=== PATIENT | female | born 1950 | race Caucasian/White ===

== ENCOUNTER 2016-09-18 12:59 | Emergency (ER) | payer OTHER ==
[~2016-09-18] VITALS: Wt 72.2 kg
[~2016-09-18 12:59] MED LIST: ASPI-664 PO; ATEN-51 PO; OMEP20CA16 PO
[2016-09-18] MEDS ORDERED: SODIUM CHLORIDE 0.9% 1L BAG IV* STA (13:18)
[2016-09-18] MEDS ORDERED: DILTIAZEM 25 MG INJ IV ONE (13:30)
[2016-09-18 13:41] LABS: BASOPHILS % 0.4 % (0.0-2.0); EOSINOPHILS # 0.1 10^3/ul (0.0-0.5); EOSINOPHILS % 0.9 % (0.0-7.0); HEMATOCRIT 43.1 % (37.0-47.0); HEMOGLOBIN 14.9 g/dl (12.0-16.0); LYMPHOCYTES # 1.8 10^3/ul (0.8-2.9); LYMPHOCYTES % 19.4 % (15.0-51.0); MEAN CORPUSCULAR HEMOGLOBIN 31.3 pg (29.0-33.0); MEAN CORPUSCULAR HGB CONC 34.7 g/dl (32.0-37.0); MEAN CORPUSCULAR VOLUME 90.1 fl (82.0-101.0); MONOCYTE # 1.1 10^3/ul (0.3-0.9); MONOCYTES % 11.5 % (0.0-11.0); NEUTROPHIL # 6.5 10^3/ul (1.6-7.5); NEUTROPHILS % 67.8 % (39.0-77.0); PLATELET COUNT 299 10^3/UL (140-440); RED BLOOD COUNT 4.78 10^6/ul (4.20-5.40); RED CELL DISTRIBUTION WIDTH 12.1 % (11.5-14.5); UNCORRECTED WBC 9.5 10^3/ul (4.8-10.8); WHITE BLOOD COUNT 9.5 10^3/ul (4.8-10.8)
[2016-09-18 13:43] LABS: CONDITION 1
[2016-09-18 13:45] LABS: ALBUMIN 4.2 g/dl (3.3-4.9)
[2016-09-18 13:46] LABS: CHLORIDE 104 mmol/L (97-110); POTASSIUM 3.7 mmol/L (3.5-5.1); SODIUM 142 mmol/L (135-144)
[2016-09-18 13:48] LABS: ANION GAP 17 (8-16); ASPARTATE AMINO TRANSFERASE 29 IU/L (15-46); BILIRUBIN,INDIRECT 0.3 mg/dl (0-1.1); BILIRUBIN,TOTAL 0.3 mg/dl (0.2-1.3); CARBON DIOXIDE 25 mmol/L (21-31); CREATININE 0.76 mg/dl (0.44-1.00); INR 1.02; PARTIAL THROMBOPLASTIN TIME 30.4 Sec (25.0-35.0); PROTIME 13.4 Sec (12.2-14.2)
[2016-09-18 13:49] LABS: ALANINE AMINOTRANSFERASE 27 IU/L (13-69); ALKALINE PHOSPHATASE 121 IU/L (42-121); BLOOD UREA NITROGEN 8 mg/dl (7-20); CALCIUM 9.6 mg/dl (8.4-10.2); GLUCOSE 120 mg/dl (70-220)
[2016-09-18 14:12] LABS: TROPONIN-I < 0.012 ng/ml (0.00-0.12)
--- NOTE | 2016-09-18 14:20 | RADRPT ---
PROCEDURE: XR Chest. CLINICAL INDICATION: Tachycardia TECHNIQUE: An AP view of the chest was obtained. COMPARISON: Chest x-ray dated 07/10/2016 FINDINGS: There is prominence of the central pulmonary vascular markings. No focal airspace opacification or pneumothorax is seen. The cardiomediastinal silhouette is moderately enlarged. Calcifications are seen within the aortic arch. The osseous structures demonstrate senescent changes. IMPRESSION: 1. Findings suggestive of pulmonary vascular congestion, increased when compared to the prior exam ination. 2. Moderate cardiomegaly and aortic atherosclerosis. RPTAT: HH .Khalida Iniguez MD, MD Date Time Electronically viewed and signed by .Khalida Iniguez MD, MD on 09/18/2016 14:19 .G/
[2016-09-18 14:38] LABS: ADD UMIC YES; URINE BILIRUBIN (Dip) NEGATIVE (NEGATIVE); URINE BLOOD (Dip) NEGATIVE (NEGATIVE); URINE COLOR LT. YELLOW (YELLOW); URINE GLUCOSE (Dip) NEGATIVE (NEGATIVE); URINE KETONES (Dip) NEGATIVE (NEGATIVE); URINE LEUKOCYTE ESTERASE (Dip) TRACE (NEGATIVE); URINE NITRITE (Dip) NEGATIVE (NEGATIVE); URINE TOTAL PROTEIN (Dip) NEGATIVE (NEGATIVE); URINE UROBILINOGEN (Dip) 0.2 E.U./dL (0.1-1.0)
[2016-09-18 14:48] LABS: URINE RBCS NONE SEEN /HPF (0)
[2016-09-18] MEDS ORDERED: SOD CHLORIDE 0.9% 500 ML IV STA (15:03)
[2016-09-18] MEDS ORDERED: ONDANSETRON 4 MG INJ IV STA (15:38)
--- NOTE | 2016-09-18 15:58 | ERD ---
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 N/V HPI This is a 65-year-old female who presents to the emergency room with a chief complaint of palpitations and mild shortness of breath for the past 2 hours. The patient does state she has a history of atrial fibrillation. She does state that her palpitations are feel similar to her previous atrial fibrillation , and this started after she drank tea. The patient denies any weakness but does state she is mildly nauseous as well. The patient came to the ER today for evaluation. She does state that she was told she needed an ablation however she has not followed up with her driver's license reviewing officer, Dr. Yang. She does say she has an appointment on September 29. ROS All systems reviewed and are negative except as per history of present illness. Medications Home Meds Reported Medications Omeprazole* (Omeprazole*) 20 Mg Capsule.dr, 20 MG PO DAILY 07/26/15 Aspirin* (Aspirin* EC) 81 Mg Tablet.dr, 81 MG PO DAILY, TAB 11/27/14 Atenolol* (Atenolol*) 25 Mg Tablet, 25 MG PO BID, TAB 11/27/14 Allergies Allergies: Coded Allergies: No Known Allergy (Unverified , 09/18/16) PMhx/Soc History of Surgery: Yes (heart cath) Anesthesia Reaction: No Hx Neurological Disorder: No Hx Respiratory Disorders: No Hx Cardiac Disorders: Yes (HTN ,Afib) Hx Psychiatric Problems: No Hx Miscellaneous Medical Probl: No Hx Alcohol Use: No Hx Substance Use: No Hx Tobacco Use: No Smoking Status: Unknown if ever smoked Physical Exam Vitals Vital Signs Date Time Temp Pulse Resp B/P Pulse Ox O2 Delivery O2 Flow Rate FiO2 09/18/16 15:00 98.5 54 22 96/46 100 Room Air 09/18/16 14:00 98.3 54 20 96/46 98 Room Air 09/18/16 13:35 62 16 114/53 100 Nasal Cannula 2.0 09/18/16 13:25 Nasal Cannula 2 09/18/16 13:25 100.5 66 17 161/127 100 Room Air 09/18/16 13:11 100.5 155 22 120/84 97 Physical Exam INITIAL VITAL SIGNS: Reviewed by me GENERAL: The patient is well developed and appropriate for usual state of health in no apparent distress HEENT: Pupils equal, round, and reactive to light. EOMI. There is no scleral icterus. NECK: C-spine is soft and supple, there is no meningismus. There is no cervical lymphadenopathy. LUNGS: Clear to auscultation bilaterally. There are no rales, wheezes or rhonchi. HEART: Irregularly irregular rhythm, no murmurs, clicks, rubs or gallops. ABDOMEN: Soft, non-tender, non-distended. There are bowel sounds in all four quadrants. No rebound or guarding. EXTREMITIES: There is no peripheral cyanosis or edema. No focal swelling or erythema. NEUROLOGICAL: The patient moves all four extremities with 5/5 strength. Cranial nerves II - XII are intact. Normal gait. Alert and oriented SKIN: There is no apparent rash or petechiae. HEME/LYMPHATIC: There is no evidence of excessive bruising or lymphedema. PSYCHIATRIC: The patient does not appear anxious or depressed. Result Diagram: 09/18/16 1325 09/18/16 1325 Results 24 hrs Laboratory Tests Test 09/18/16 13:25 09/18/16 14:20 Activated Partial Thromboplast Time 30.4Sec Alanine Aminotransferase (ALT/SGPT) 27IU/L Albumin 4.2g/dl Albumin/Globulin Ratio 1.10 Alkaline Phosphatase 121IU/L Anion Gap 17 Aspartate Amino Transf (AST/SGOT) 29IU/L Basophils # 0.010^3/ul Basophils % 0.4% Blood Urea Nitrogen 8mg/dl Calcium Level 9.6mg/dl Carbon Dioxide Level 25mmol/L Chloride Level 104mmol/L Creatinine 0.76mg/dl Digoxin Level 0.9ng/ml Direct Bilirubin 0.00mg/dl Eosinophils # 0.110^3/ul Eosinophils % 0.9% Globulin 3.80g/dl Glucose Level 120mg/dl Hematocrit 43.1% Hemoglobin 14.9g/dl INR International Normalized Ratio 1.02 Indirect Bilirubin 0.3mg/dl Lactic Acid Level 1.9mmol/L Lymphocytes # 1.810^3/ul Lymphocytes % 19.4% Mean Corpuscular Hemoglobin 31.3pg Mean Corpuscular Hemoglobin Concent 34.7g/dl Mean Corpuscular Volume 90.1fl Mean Platelet Volume 8.0fl Monocytes # 1.110^3/ul Monocytes % 11.5% Neutrophils # 6.510^3/ul Neutrophils % 67.8% Nucleated Red Blood Cells # 0.010^3/ul Nucleated Red Blood Cells % 0.0/100WBC Platelet Count 41873^3/UL Potassium Level 3.7mmol/L Prothrombin Time 13.4Sec Prothrombin Time Ratio 1.0 Red Blood Count 4.7810^6/ul Red Cell Distribution Width 12.1% Sodium Level 142mmol/L Total Bilirubin 0.3mg/dl Total Protein 8.0g/dl Troponin I < 0.012ng/ml White Blood Count 9.510^3/ul Urine Bilirubin NEGATIVE Urine Clarity CLEAR Urine Color LT. YELLOW Urine Glucose NEGATIVE% Urine Hemoglobin NEGATIVE Urine Ketones NEGATIVE Urine Leukocyte Esterase TRACE Urine Microscopic RBC NONE SEEN/HPF Urine Microscopic WBC 0-2/HPF Urine Nitrite NEGATIVE Urine Specific Bradley <=1.005 Urine Total Protein NEGATIVE Urine Urobilinogen 0.2 E.U./dL Urine pH 6.0 Current Medications Medications (Trade) Dose Ordered Sig/Bruce Route PRN Reason Start Time Stop Time Status Last Admin Dose Admin Sodium Chloride (NS) 2,240 ml BOLUS OVER 2 HOURS STAT IV* 09/18/16 13:18 09/18/16 13:19 DC 09/18/16 13:30 Diltiazem HCl 15 mg 15 mg ONCE ONCE IV 09/18/16 13:30 09/18/16 13:31 DC 09/18/16 13:30 Sodium Chloride (NS) 500 ml @ 500 mls/hr Q1H STAT IV 09/18/16 15:03 09/18/16 16:02 09/18/16 15:09 Ondansetron HCl (Zofran Inj) 4 mg ONCE STAT IV 09/18/16 15:38 09/18/16 15:39 DC 09/18/16 15:46 Procedures/MDM EKG: #1 Rate/Rhythm: Atrial fibrillation QRS, ST, T-waves: [No changes consistent w/ acute ischemia] Impression: [Atrial fibrillation with rapid ventricular response EKG: #2 Rate/Rhythm: Sinus bradycardia QRS, ST, T-waves: [No changes consistent w/ acute ischemia] Impression: [No evidence of ischemia or arrhythmia] Chest X-ray 1V Interpreted by me: Soft Tissue: Pulmonary vascular congestion Bones: No acute abnormalities Mediastinum/Cardiac Silhouette/Lungs: [No acute abnormalities] This 65-year-old female presents to the emergency room for evaluation of palpitations. When I evaluated her she was tachycardic with an irregular rhythm. EKG does confirm atrial fibrillation with rapid ventricular response. This patient is on atenolol 25 mg twice daily, and digoxin 0.125 mg daily. I did obtain lab work including a digoxin level which was mildly subtherapeutic at 0.9. The patient was given 50 mg of Cardizem IV. This patient responded well to the Cardizem, however she became slightly bradycardic and hypotensive with a systolic blood pressure of 96. The patient was given 500 cc of normal saline. I did contact this patient's driver's license reviewing officer and spoke to the doctor internal consultant, Dr. Esposito. I did present the case to him, and he agrees this patient can be discharged home at this time as long as she is not in atrial fibrillation with rapid ventricular response. The patient did have one episode of vomiting after receiving the Cardizem and was given Zofran. Dr. Esposito did recommend the patient be switched to atenolol 50 mg twice daily and 7 for 25 mg twice daily. I relayed this information to the patient who is okay with her plan of care. Cardiac Critical Care: Excluding all billable procedures Time: 32 minutes Treatments/Evaluations: Close monitoring for dangerous arrhythmia and cardiovascular collapse, while treating with advance cardiac medications and techniques, administration of Cardizem for atrial fibrillation with rapid ventricular response, multiple bedside evaluations, multiple consultations, lab values interpretation, EKG interpretation. Departure Diagnosis: Primary Impression: Atrial fibrillation with RVR Additional Impression: Nausea & vomiting Condition: KARO Trimble DO Sep 18, 2016 15:58
[2016-09-18 16:18] VITALS: BP 110/57; PULSE 88; RESP 20; TEMP 98.3
== END 2016-09-18 16:19 | disposition home or self-care (01) ==
LOC: E/R 12:59
DX: I48.91 Unspecified atrial fibrillation (principal); R11.2 Nausea with vomiting, unspecified; I10 Essential (primary) hypertension
CPT/HCPCS: 36415; 71010; 80053; 80162; 81001; 81003; 83605; 84484; 85025; 85610; 85730; 87040; 87086; 96374; 96375; 99291; J2405; J7030; J7040

== ENCOUNTER 2016-10-25 20:03 | Emergency (ER) | payer OTHER ==
[~2016-10-25] VITALS: Ht 162.6 cm; Wt 73.5 kg
[2016-10-25 20:17] VITALS: Ht 162.6 cm; Wt 73.5 kg
--- NOTE | 2016-10-25 22:05 | RADRPT ---
PROCEDURE: XR Chest. CLINICAL INDICATION: Chest pain. TECHNIQUE: AP Portable chest. COMPARISON: 09/18/2016 FINDINGS: There is mild to moderate cardiomegaly. Atherosclerotic calcifications are noted in the aorta. The lungs are clear. The osseous structures are unremarkable. IMPRESSION: No acute findings. RPTAT: HIKT .Joshua Oviedo MD, MD Date Time Electronically viewed and signed by .Joshua Oviedo MD, MD on 10/25/2016 22:05 .T/
[2016-10-25 22:30] LABS: ADD SCAN DIFF NO
[2016-10-25 22:32] LABS: BASOPHIL # 0.1 10^3/ul (0.0-0.1); BASOPHILS % 0.6 % (0.0-2.0); EOSINOPHILS # 0.1 10^3/ul (0.0-0.5); EOSINOPHILS % 1.6 % (0.0-7.0); HEMATOCRIT 40.1 % (37.0-47.0); HEMOGLOBIN 13.5 g/dl (12.0-16.0); LYMPHOCYTES # 3.4 10^3/ul (0.8-2.9); LYMPHOCYTES % 38.9 % (15.0-51.0); MEAN CORPUSCULAR HEMOGLOBIN 30.8 pg (29.0-33.0); MEAN CORPUSCULAR HGB CONC 33.7 g/dl (32.0-37.0); MEAN CORPUSCULAR VOLUME 91.6 fl (82.0-101.0); MEAN PLATELET VOLUME 9.3 fl (7.4-10.4); MONOCYTES % 11.2 % (0.0-11.0); NEUTROPHIL # 4.1 10^3/ul (1.6-7.5); NEUTROPHILS % 47.5 % (39.0-77.0); PLATELET COUNT 326 10^3/UL (140-415); RED BLOOD COUNT 4.38 10^6/ul (4.20-5.40); RED CELL DISTRIBUTION WIDTH 12.2 % (11.5-14.5); WHITE BLOOD COUNT 8.7 10^3/ul (4.8-10.8)
--- NOTE | 2016-10-25 22:40 | ERD ---
ER Documentation Chief Complaint Date/Time DATE: 10/25/16 TIME: 22:35 Chief Complaint palpitations since 4 pm HPI Very pleasant 65-year-old female history of paroxysmal A. fib who presents to the emergency room with description of palpitations and lightheadedness earlier today. She denied any chest pain, no back pain. She describes similar symptoms in the past. She states compliance with medications including metoprolol and digoxin. She does not take anticoagulants. She denies any symptoms currently. ROS All systems reviewed and are negative except as per history of present illness. Medications Home Meds Reported Medications Omeprazole* (Omeprazole*) 20 Mg Capsule.dr, 20 MG PO DAILY 07/26/15 Aspirin* (Aspirin* EC) 81 Mg Tablet.dr, 81 MG PO DAILY, TAB 11/27/14 Atenolol* (Atenolol*) 25 Mg Tablet, 25 MG PO BID, TAB 11/27/14 Allergies Allergies: Coded Allergies: No Known Allergy (Unverified , 10/25/16) PMhx/Soc History of Surgery: Yes (heart cath,stent placement 1998,left inguinal hernia repair) Anesthesia Reaction: No Hx Neurological Disorder: No Hx Respiratory Disorders: No Hx Cardiac Disorders: Yes (HTN ,Afib) Hx Psychiatric Problems: No Hx Miscellaneous Medical Probl: Yes (diverticulosis,cholecystectomy) Hx Alcohol Use: No Hx Substance Use: No Hx Tobacco Use: Yes (ex-smoker) Smoking Status: Former smoker FmHx Family History: No diabetes Physical Exam Vitals Vital Signs Date Time Temp Pulse Resp B/P Pulse Ox O2 Delivery O2 Flow Rate FiO2 10/25/16 21:05 77 21 135/69 97 Room Air 10/25/16 20:17 99.1 98 20 141/72 98 Physical Exam General: Well developed, well nourished, no acute distress Head: Normocephalic, atraumatic. Eyes: Pupils equally reactive, EOM intact ENT: Moist mucous membranes Neck: Supple, no lymphadenopathy Respiratory: Lungs clear bilaterally, no distress Cardiovascular: RRR, no murmurs, rubs, or gallops Abdominal: Soft, non-tender, non-distended, no peritoneal signs : Deferred MSK: No edema, no unilateral swelling, 5/5 strength Neurologic: Alert and oriented, moving all extremities, normal speech, no focal weakness, no cerebellar signs Skin: No rash Psych: Normal mood Result Diagram: 10/25/16221410/25/162214 Results 24 hrs Laboratory Tests Test 10/25/16 22:15 White Blood Count 8.710^3/ul Red Blood Count 4.3810^6/ul Hemoglobin 13.5g/dl Hematocrit 40.1% Mean Corpuscular Volume 91.6fl Mean Corpuscular Hemoglobin 30.8pg Mean Corpuscular Hemoglobin Concent 33.7g/dl Red Cell Distribution Width 12.2% Platelet Count 95541^3/UL Mean Platelet Volume 9.3fl Neutrophils % 47.5% Lymphocytes % 38.9% Monocytes % 11.2% Eosinophils % 1.6% Basophils % 0.6% Nucleated Red Blood Cells % 0.0/100WBC Neutrophils # 4.110^3/ul Lymphocytes # 3.410^3/ul Monocytes # 1.010^3/ul Eosinophils # 0.110^3/ul Basophils # 0.110^3/ul Nucleated Red Blood Cells # 0.010^3/ul Prothrombin Time 12.5Sec Prothrombin Time Ratio 1.0 INR International Normalized Ratio 0.93 Activated Partial Thromboplast Time 29.0Sec Sodium Level 141mmol/L Potassium Level 4.5mmol/L Chloride Level 104mmol/L Carbon Dioxide Level 31mmol/L Anion Gap 11 Blood Urea Nitrogen 16mg/dl Creatinine 0.77mg/dl Glucose Level 102mg/dl Calcium Level 9.5mg/dl Magnesium Level 2.0mg/dl Troponin I Pending Digoxin Level 0.7ng/ml Procedures/MDM EKG, MONITORS, & DIAGNOSTIC IMAGING: EKG: I reviewed and interpreted a 12-lead EKG. Rhythm: Sinus arrhythmia with PVCs Ectopy: PVC Intervals: No abnormalities ST segments: No elevations or depressions T waves: No contiguous inversions EKG #2 EKG: I reviewed and interpreted a 12-lead EKG. Rhythm: Normal sinus rhythm Ectopy: None Intervals: No abnormalities ST segments: No elevations or depressions T waves: No contiguous inversions Chest x-ray: I reviewed and interpreted a 1 view of the chest Mediastinum: No enlargement Cardiac silhouette: No cardiomegaly Airspace: Clear lung collins bilaterally without evidence of pneumothorax Bones: No evidence of fracture LAB INTERPRETATION: Slightly subtherapeutic digoxin level MEDICAL DECISION MAKING: The patient presents with likely intermittent paroxysmal A. fib with mild symptoms related to this process. The patient is currently on appropriate rate control medications. The patient is currently in sinus rhythm. She is not anticoagulated. The patient's CHADS-VASC score is estimated to be around 2 or 3. Outpatient conversation with braille typist for anticoagulation on a long- term basis would be reasonable. The patient is currently rate and rhythm controlled. The patient is asymptomatic currently. She did not have any chest pain. He will be reasonable to rule out evidence of cardiac strain including laboratory testing, dig level and troponin. If no evidence of acute process, outpatient management with her braille typist would be reasonable. ER COURSE: I was able to speak to Dr. Fontenot, on-call for the patient's primary braille typist. We discussed the case. He feels that it would be reasonable for laboratory testing is otherwise unremarkable the patient can be safely discharged and followed up early this week with her primary braille typist. He also recommends conversation with her braille typist regarding anticoagulation but does not require anticoagulation in the emergency room. The patient's laboratory testing is reassuring. The patient remains asymptomatic. She was referred to her primary braille typist Dr. Bagley I kept the patient and/or family informed of laboratory and diagnostic imaging results throughout the emergency room course. DISPOSITION PLAN: We discussed follow up with the patient's primary care doctor within 24 to 48 hours as needed. We also discussed return to the emergency room for worsening symptoms or worsening condition. Outpatient referral: Dr. Bagley Discharge Medications: None Troponin pending at signout. Dr. Nava to follow-up on troponin. If negative the patient can be safely discharged home. The patient's dig level is slightly low however I advised patient to continue this medication and discuss with Dr. Bagley dosing regimen. Departure Diagnosis: Primary Impression: PAF (paroxysmal atrial fibrillation) Additional Impression: Palpitation Condition: Stable ORACIO LUGO MD Oct 25, 2016 22:40
[2016-10-25 22:44] LABS: CHLORIDE 104 mmol/L (97-110); POTASSIUM 4.5 mmol/L (3.5-5.1); SODIUM 141 mmol/L (135-144)
[2016-10-25 22:45] LABS: INR 0.93; PROTIME 12.5 Sec (12.2-14.2)
[2016-10-25 22:47] LABS: ANION GAP 11 (8-16); BLOOD UREA NITROGEN 16 mg/dl (7-20); CARBON DIOXIDE 31 mmol/L (21-31); CREATININE 0.77 mg/dl (0.44-1.00); GLUCOSE 102 mg/dl (70-220)
[2016-10-25 22:48] LABS: CALCIUM 9.5 mg/dl (8.4-10.2)
[2016-10-25 22:59] LABS: TROPONIN-I < 0.012 ng/ml (0.00-0.12)
[2016-10-25 23:25] VITALS: BP 139/71; PULSE 66; RESP 16; TEMP 98.1
== END 2016-10-25 23:50 | disposition home or self-care (01) ==
LOC: E/R 20:03
DX: I48.0 Paroxysmal atrial fibrillation (principal); I10 Essential (primary) hypertension; Z98.61 Coronary angioplasty status; Z79.82 Long term (current) use of aspirin; Z87.891 Personal history of nicotine dependence
CPT/HCPCS: 36415; 71010; 80048; 80162; 83735; 84484; 85025; 85610; 85730; 93005

== ENCOUNTER 2016-12-22 01:45 | Observation (INO) | payer OTHER ==
[2016-12-22] VITALS (11 sets, daily range): BP systolic 111–127; BP diastolic 53–60; PULSE 51–63; RESP 18–20; TEMP 97.6; Ht 162.6 cm; Wt 72.7 kg
[~2016-12-22] VITALS: Ht 162.6 cm; Wt 72.7 kg
[2016-12-22] MEDS ORDERED: SOD CHLORIDE 0.9% 500 ML IV STA (02:13)
[2016-12-22] MEDS ORDERED: ASPIRIN 81 MG TAB PO STA (02:13)
[2016-12-22] MEDS ORDERED: NITROGLYCERIN 2% 1 GM OINT PKT TD STA (02:13)
[2016-12-22] MEDS ORDERED: ONDANSETRON 4 MG INJ IV STA (02:13)
[2016-12-22] MEDS ORDERED: morphine 2 MG INJ IV STA (02:13)
[2016-12-22 02:32] LABS: ADD SCAN DIFF NO
[2016-12-22 02:35] LABS: BASOPHIL # 0.1 10^3/ul (0.0-0.1); BASOPHILS % 0.6 % (0.0-2.0); EOSINOPHILS # 0.1 10^3/ul (0.0-0.5); EOSINOPHILS % 1.7 % (0.0-7.0); HEMATOCRIT 37.9 % (37.0-47.0); HEMOGLOBIN 12.9 g/dl (12.0-16.0); LYMPHOCYTES # 3.4 10^3/ul (0.8-2.9); LYMPHOCYTES % 41.6 % (15.0-51.0); MEAN CORPUSCULAR HEMOGLOBIN 31.1 pg (29.0-33.0); MEAN CORPUSCULAR VOLUME 91.3 fl (82.0-101.0); MEAN PLATELET VOLUME 9.3 fl (7.4-10.4); MONOCYTE # 0.8 10^3/ul (0.3-0.9); MONOCYTES % 10.1 % (0.0-11.0); NEUTROPHIL # 3.7 10^3/ul (1.6-7.5); NEUTROPHILS % 45.9 % (39.0-77.0); PLATELET COUNT 274 10^3/UL (140-415); RED BLOOD COUNT 4.15 10^6/ul (4.20-5.40); RED CELL DISTRIBUTION WIDTH 12.1 % (11.5-14.5); WHITE BLOOD COUNT 8.1 10^3/ul (4.8-10.8)
[2016-12-22] MEDS ORDERED: FLEC50TA PO (02:44)
[2016-12-22] MEDS ORDERED: APIX5TAB PO (02:44)
[2016-12-22 02:48] LABS: ALBUMIN 3.8 g/dl (3.3-4.9)
[2016-12-22 02:49] LABS: CHLORIDE 106 mmol/L (97-110); INR 1.17; POTASSIUM 3.8 mmol/L (3.5-5.1); PT RATIO 1.2; SODIUM 143 mmol/L (135-144)
[2016-12-22 02:50] LABS: PARTIAL THROMBOPLASTIN TIME 33.9 Sec (25.0-35.0)
[2016-12-22 02:51] LABS: ALBUMIN/GLOBULIN RATIO 0.97; ALKALINE PHOSPHATASE 104 IU/L (42-121); ANION GAP 17 (8-16); ASPARTATE AMINO TRANSFERASE 22 IU/L (15-46); BILIRUBIN,INDIRECT 0.2 mg/dl (0-1.1); BILIRUBIN,TOTAL 0.2 mg/dl (0.2-1.3); CARBON DIOXIDE 24 mmol/L (21-31); CREATININE 0.84 mg/dl (0.44-1.00); TOTAL PROTEIN 7.7 g/dl (6.1-8.1)
[2016-12-22 02:52] LABS: ALANINE AMINOTRANSFERASE 31 IU/L (13-69); BLOOD UREA NITROGEN 20 mg/dl (7-20); CALCIUM 9.5 mg/dl (8.4-10.2); GLUCOSE 96 mg/dl (70-220)
[2016-12-22 03:00] LABS: B-TYPE NATRIURETIC PEPTIDE 170 PG/ML (0-125)
[2016-12-22 03:27] LABS: TROPONIN-I < 0.012 ng/ml (0.00-0.12)
--- NOTE | 2016-12-22 03:51 | RADRPT ---
PROCEDURE: Chest. CLINICAL INDICATION: Chest pain. TECHNIQUE: Single frontal view of the chest was obtained. COMPARISON: 10/25/2016. FINDINGS: The cardiac silhouette is enlarged. The aortic arch is calcified. There is mild bibasilar atelecta sis. There is no focal consolidation, vascular congestion or pleural effusion. There is no pneumot horax. IMPRESSION: Mild bibasilar atelectasis. Cardiomegaly and aortic atherosclerosis. .Jaime Gama MD, Date Time Electronically viewed and signed by .Jaime Gama MD, on 12/22/2016 03:51 .T/
--- NOTE | 2016-12-22 04:55 | ERA ---
ER Documentation Chief Complaint Date/Time DATE: 12/22/16 TIME: 04:54 Chief Complaint CP X 35 MINS. +SOB HPI This is a 66-year-old woman which has been 35 minutes of shortness of breath. Patient has a previous cardiac history of stenting. No nausea no vomiting no chills. Mild diaphoresis. No other current complaints. Pain is mild to moderate intensity with no exacerbating or alleviating factors ROS All systems reviewed and are negative except as per history of present illness. Medications Home Meds Reported Medications Apixaban* (Eliquis*) 5 Mg Tablet, 5 MG PO BID, TAB 12/22/16 Flecainide Acetate* (Flecainide Acetate*) 50 Mg Tablet, 50 MG PO Q12, TAB 12/22/16 Omeprazole* (Omeprazole*) 20 Mg Capsule.dr, 20 MG PO DAILY 07/26/15 Atenolol* (Atenolol*) 25 Mg Tablet, 25 MG PO BID, TAB 11/27/14 Discontinued Reported Medications Aspirin* (Aspirin* EC) 81 Mg Tablet.dr, 81 MG PO DAILY, TAB 11/27/14 Allergies Allergies: Coded Allergies: No Known Allergy (Unverified , 12/22/16) PMhx/Soc History of Surgery: Yes (heart cath,stent placement 1998,left inguinal hernia repair) Anesthesia Reaction: No Hx Neurological Disorder: No Hx Respiratory Disorders: No Hx Cardiac Disorders: Yes (HTN ,Afib) Hx Psychiatric Problems: No Hx Miscellaneous Medical Probl: Yes (diverticulosis,cholecystectomy) Hx Alcohol Use: No Hx Substance Use: No Hx Tobacco Use: Yes (ex-smoker) Smoking Status: Former smoker Physical Exam Vitals Vital Signs Date Time Temp Pulse Resp B/P Pulse Ox O2 Delivery O2 Flow Rate FiO2 12/22/16 01:50 97.5 65 18 147/65 97 Physical Exam Const: [] Head: Atraumatic Eyes: Normal Conjunctiva ENT: Normal External Ears, Nose and Mouth. Neck: Full range of motion..~ No meningismus. Resp: Clear to auscultation bilaterally Cardio: Regular rate and rhythm, no murmurs Abd: Soft, non tender, non distended. Normal bowel sounds Skin: No petechiae or rashes Back: No midline or flank tenderness Ext: No cyanosis, or edema Neur: Awake and alert Psych: Normal Mood and Affect Result Diagram: 12/22/166 12/22/166 Results 24 hrs Laboratory Tests Test 12/22/16 02:26 White Blood Count 8.110^3/ul Red Blood Count 4.1510^6/ul Hemoglobin 12.9g/dl Hematocrit 37.9% Mean Corpuscular Volume 91.3fl Mean Corpuscular Hemoglobin 31.1pg Mean Corpuscular Hemoglobin Concent 34.0g/dl Red Cell Distribution Width 12.1% Platelet Count 84643^3/UL Mean Platelet Volume 9.3fl Neutrophils % 45.9% Lymphocytes % 41.6% Monocytes % 10.1% Eosinophils % 1.7% Basophils % 0.6% Nucleated Red Blood Cells % 0.0/100WBC Neutrophils # 3.710^3/ul Lymphocytes # 3.410^3/ul Monocytes # 0.810^3/ul Eosinophils # 0.110^3/ul Basophils # 0.110^3/ul Nucleated Red Blood Cells # 0.010^3/ul Prothrombin Time 15.0Sec Prothrombin Time Ratio 1.2 INR International Normalized Ratio 1.17 Activated Partial Thromboplast Time 33.9Sec Sodium Level 143mmol/L Potassium Level 3.8mmol/L Chloride Level 106mmol/L Carbon Dioxide Level 24mmol/L Anion Gap 17 Blood Urea Nitrogen 20mg/dl Creatinine 0.84mg/dl Glucose Level 96mg/dl Calcium Level 9.5mg/dl Total Bilirubin 0.2mg/dl Direct Bilirubin 0.00mg/dl Indirect Bilirubin 0.2mg/dl Aspartate Amino Transf (AST/SGOT) 22IU/L Alanine Aminotransferase (ALT/SGPT) 31IU/L Alkaline Phosphatase 104IU/L Troponin I < 0.012ng/ml B-Type Natriuretic Peptide 170PG/ML Total Protein 7.7g/dl Albumin 3.8g/dl Globulin 3.90g/dl Albumin/Globulin Ratio 0.97 Current Medications Medications (Trade) Dose Ordered Sig/Bruce Route PRN Reason Start Time Stop Time Status Last Admin Dose Admin Sodium Chloride (NS) 500 ml @ 500 mls/hr Q1H STAT IV 12/22/16 02:13 12/22/16 03:12 DC 12/22/16 02:41 Aspirin (Aspirin) 162 mg ONCE STAT PO 12/22/16 02:13 12/22/16 02:14 DC 12/22/16 02:40 Nitroglycerin (Nitroglycerin 2% Oint) 1 inch ONCE STAT TD 12/22/16 02:13 12/22/16 02:14 DC 12/22/16 02:41 Morphine Sulfate (morphine) 2 mg ONCE STAT IV 12/22/16 02:13 12/22/16 02:14 DC Ondansetron HCl (Zofran Inj) 4 mg ONCE STAT IV 12/22/16 02:13 12/22/16 02:14 DC Procedures/MDM EKG: Rate/Rhythm: Normal Sinus Rhythm QRS, ST, T-waves: No changes consistent w/ acute ischemia Impression: No evidence of ischemia or arrhythmia Chest X-ray 1V Interpreted by me: Soft Tissue: No acute abnormalities Bones: No acute abnormalities Mediastinum/Cardiac Silhouette/Lungs: No acute abnormalities Patient's symptoms are concerning for cardiac cause will require inpatient workup and continuous monitoring. Further w/u for ischemia, arrhythmia, PE or dissection will be deferred to the inpatient team. Accepting Care Team: Current data and ongoing care discussed. Time: 4:30 AM Primary Provider: Hospitalist Consulting: [XOXOXO] Outstanding Data: none Departure Diagnosis: Primary Impression: Chest pain Qualified Code: I20.0 - Unstable angina pectoris Condition: Serious GUNNER MAYBERRY December 22, 2016 04:54
[2016-12-22] MEDS ORDERED: NACL 0.9% 3 ML SYG IV SCH (06:30)
[2016-12-22] MEDS ORDERED: ALBUTEROL/IPRATROPIUM (NEB) 3 ML AMP HHN PRN (06:30)
[2016-12-22] MEDS ORDERED: LORAZEPAM 2 MG INJ IV PRN (06:30)
[2016-12-22] MEDS ORDERED: morphine 2 MG INJ IV PRN (06:30)
[2016-12-22] MEDS ORDERED: ONDANSETRON 4 MG INJ IV PRN (06:30)
[2016-12-22] MEDS ORDERED: NITROGLYCERIN (SL) 0.4 MG TAB SL PRN (06:30)
[2016-12-22] MEDS: PANTOPRAZOLE (EC) 40 MG TAB PO SCH (07:00)
--- NOTE | 2016-12-22 08:04 | HP ---
DATE OF ADMISSION: 12/22/2016 TIME SEEN: 5:30 a.m. CHIEF COMPLAINT: Chest pain. HISTORY OF PRESENT ILLNESS: The patient is a 66-year-old female with a history of hypertension, Enrico b, GERD, erosive gastritis who presented to the emergency department with a chief complaint of chest pain. The chest pain started yesterday afternoon. It is located in the mid chest with radiation t o her back as well as the back of her neck. She could not really describe the type of pain, but she just said it hurts. The pain is intermittent, lasting about a minute. She denied shortness of anastasiya ath, nausea, vomiting, diaphoresis. She also denied fever, chills. She has a history of AFib and r eports occasional palpitations. When the patient presented to the ER, blood pressure was 147/65, heart rate 65, respiratory rate 18, temperature 97.5, oxygen saturation 97% on room air. CBC and CMP are unremarkable. Chest x-ray sh ows cardiomegaly as well as mild bibasilar atelectasis. Her first troponin was negative. She was g iven aspirin and a nitroglycerin patch was placed on her chest. REVIEW OF SYSTEMS: A 12-point review was performed, negative except as mentioned in the HPI. PAST MEDICAL HISTORY: As per HPI. PAST SURGICAL HISTORY: Inguinal hernia repair. SOCIAL HISTORY: She smoked a pack a day for about 15 years, but she quit many years ago. Drinks al cohol occasionally. Denied a history of illicit drug use. FAMILY HISTORY: She stated several family members with heart problems, the youngest one being in he r brother who was diagnosed in and also of heart problems around the age of 55. PHYSICAL EXAMINATION: VITAL SIGNS: Stable. GENERAL: The patient sitting at the edge of her bed, no acute distress. Answering questions approp riately. HEENT: Normocephalic, atraumatic. Extraocular muscles intact. No scleral icterus. CARDIOVASCULAR: Regular rate and rhythm. LUNGS: Clear. ABDOMEN: Soft. There is some discomfort diffusely to deep palpation without guarding, rigidity, or rebound tenderness. There are positive bowel sounds. EXTREMITIES: No edema. NEUROLOGIC: No focal deficits. LABORATORY: CBC and CMP are unremarkable. Chest x-ray shows cardiomegaly and aortic atherosclerosis as well as mild bibasilar atelectasis. IMPRESSION: 1. Chest pain. 2. History of hypertension. 3. History of atrial fibrillation. 4. History of gastroesophageal reflux disease. 5. History of erosive esophagitis. 6. History of moderate tricuspid regurgitation. PLAN: Will continue telemetry monitoring. First troponin is negative and EKG with no ST elevation or depression. We will trend her troponins. We will continue her home medications including Eliqui s and Atenolol. We will check an A1c, fasting lipid, and TSH. She had an echocardiogram a year-and -a-half ago which showed a preserved EF of 60% with moderate tricuspid valve regurgitation. Will re peat echo. Will consider cardiology consult. We will continue her home PPI. Further workup and management per clinical course. Dictated By: GUNNER RUFF/ARACELI Conf#: [id number] DID#: [id number]
[2016-12-22] MEDS ORDERED: FLECAINIDE 100 MG TAB PO SCH (09:00)
[2016-12-22] MEDS ORDERED: NON-FORMULARY/PATIENT OWN MED (Omeprazole* 20 MG) PO SCH (09:00)
[2016-12-22] MEDS ORDERED: ENOXAPARIN 40 MG/0.4 ML SYG SC SCH (09:00)
[2016-12-22] MEDS ORDERED: FLECAINIDE 50 MG TAB PO SCH (09:00)
[2016-12-22] MEDS: ACETAMINOPHEN 325 MG TAB PO PRN ×2 (09:10→21:12)
[2016-12-22] MEDS: ATENOLOL 25 MG TAB PO SCH ×2 (09:10→21:00)
[2016-12-22] MEDS: APIXABAN 5 MG TABLET PO SCH ×2 (09:10→21:10)
[2016-12-22] MEDS: FLECAINIDE 50 MG TAB PO SCH (21:10)
[2016-12-22] MEDS ORDERED: SOD CHLORIDE 0.9% 100 ML ONE (21:38)
[2016-12-22] MEDS ORDERED: IOHEXOL 350MG/ML 50 ML BTL ONE (21:38)
[2016-12-22] MEDS ORDERED: IOHEXOL 100 ML ONE (21:38)
[2016-12-23] VITALS (14 sets, daily range): BP systolic 109–125; BP diastolic 51–67; PULSE 40–73; RESP 18–20
--- NOTE | 2016-12-23 03:16 | RADRPT ---
PROCEDURE: CTA Chest and abdomen CLINICAL INDICATION: Chest pain. Suspected aortic dissection or pulmonary embolus. TECHNIQUE: Thin section spiral CT images were obtained through the vasculature of the chest and ab domen during administration of 120 cc of Omnipaque 350 contrast material. Multiplanar reconstructio ns and 3-D maximum intensity projection reconstructed images were performed. The images were review ed on a PACS workstation. The total exam CTDI equals 13.96 mGy, and the total exam DLP equals 616.5 5 mGy-cm. One or more of the following dose reduction techniques were used: automated exposure cont rol, adjustment of the mA and/or kV according to patient size, or use of iterative reconstruction te chnique. COMPARISON: None FINDINGS: Dependent atelectasis of the lungs is seen and there is nonspecific mosaic attenuation throughout th e lung collins bilaterally. No focal pulmonary nodules are seen. Metallic device is seen in the int eratrial region, possible atrial septal closure device. Cardiomegaly. Atherosclerotic change of th e aorta. No significant coronary artery calcification. No focal infiltrate or pleural effusion is s een. No pericardial effusion is seen. No hilar or mediastinal adenopathy is seen. There is no defi nite evidence for pulmonary embolus or aortic dissection. Clips are seen from prior cholecystectom y. Arterial phase imaging of the abdomen shows no definite focal lesions of the liver or spleen. C lips are seen from prior cholecystectomy. The adrenals, kidneys, and pancreas are unremarkable in a ppearance. There is atherosclerotic change of the abdominal aorta without aneurysm seen. No superi or mesenteric or celiac artery stenosis is seen. Single renal arteries are seen bilaterally without evidence of renal artery stenosis. The inferior mesenteric artery is patent. Degenerative change of the spine is seen. IMPRESSION: No evidence for pulmonary embolus or aortic dissection. Atherosclerotic change of the thoracic and upper abdominal aorta without evidence of aneurysm. Dependent atelectasis of the lungs and nonspecific mosaic attenuation. Probable atrial septal closu re device. RPTAT: [facility] Physician Aakash Date Time Electronically viewed and signed by Physician Aakash on 12/23/2016 03:15 LE/
[2016-12-23] MEDS: PANTOPRAZOLE (EC) 40 MG TAB PO SCH (05:13)
[2016-12-23] MEDS: FLECAINIDE 50 MG TAB PO SCH ×2 (09:00→20:36)
[2016-12-23 09:05] LABS: ADD SCAN DIFF NO
[2016-12-23] MEDS: APIXABAN 5 MG TABLET PO SCH (09:10)
[2016-12-23 09:17] LABS: BASOPHIL # 0.1 10^3/ul (0.0-0.1); BASOPHILS % 0.8 % (0.0-2.0); EOSINOPHILS # 0.1 10^3/ul (0.0-0.5); EOSINOPHILS % 1.9 % (0.0-7.0); HEMATOCRIT 43.5 % (37.0-47.0); HEMOGLOBIN 14.2 g/dl (12.0-16.0); LYMPHOCYTES # 3.6 10^3/ul (0.8-2.9); LYMPHOCYTES % 48.1 % (15.0-51.0); MEAN CORPUSCULAR HEMOGLOBIN 30.3 pg (29.0-33.0); MEAN CORPUSCULAR HGB CONC 32.6 g/dl (32.0-37.0); MEAN CORPUSCULAR VOLUME 92.9 fl (82.0-101.0); MEAN PLATELET VOLUME 9.5 fl (7.4-10.4); MONOCYTE # 0.6 10^3/ul (0.3-0.9); MONOCYTES % 8.3 % (0.0-11.0); NEUTROPHIL # 3.1 10^3/ul (1.6-7.5); NEUTROPHILS % 40.6 % (39.0-77.0); PLATELET COUNT 323 10^3/UL (140-415); RED BLOOD COUNT 4.68 10^6/ul (4.20-5.40); RED CELL DISTRIBUTION WIDTH 12.3 % (11.5-14.5); WHITE BLOOD COUNT 7.6 10^3/ul (4.8-10.8)
[2016-12-23 10:16] LABS: ALBUMIN 4.1 g/dl (3.3-4.9); BILIRUBIN,INDIRECT 0.2 mg/dl (0-1.1); BILIRUBIN,TOTAL 0.2 mg/dl (0.2-1.3); CALCIUM 9.3 mg/dl (8.4-10.2); CHOL/HDL RATIO 3.8 RATIO; CREATININE 0.82 mg/dl (0.44-1.00); TOTAL PROTEIN 8.2 g/dl (6.1-8.1)
--- NOTE | 2016-12-23 11:04 | CONS ---
Date/Time of Note Date/Time of Note DATE: 12/23/16 TIME: 10:58 Assessment/Plan Assessment/Plan Additional Assessment/Plan Paroxysmal atrial fibrillation, currently sinus rhythm Pauses History of ASD closure Back, neck, shoulder and chest pain -Patient symptoms of back, neck, shoulder and chest pain is elicited with movements and palpation. Serial cardiac enzymes remain negative and ECG is without any significant ischemic abnormalities. Patient also found to have pauses on telemetry. She has been on flecainide for her paroxysmal atrial fibrillation and has remained in sinus rhythm. Pauses unlikely from flecainide , would stop beta-curry at the current time. Continue telemetry monitoring. Would discuss with patient's chief clerk her outpatient atrial fibrillation treatment plan. Consultation Date/Type/Reason Admit Date/Time December 22, 2016 at 04:46 Type of Consultation: cv Reason for Consultation Chest pain and bradycardia Hx of Present Illness This is a 66-year-old female with past medical history of paroxysmal atrial fibrillation on flecainide who presented emergency room with complaints of head , neck, shoulder and chest pain. Jhaveri began when patient was sleeping. Pain was aching like and radiating from the shoulders to the back and chest. Pain was worse with shrugging shoulders and pushing on the chest wall and the back. There was no associated shortness of breath, diaphoresis. Her pain has improved since coming to the emergency room but still mildly present, especially with movements. She otherwise denies exertional chest pain or shortness of breath. She has been having issues with palpitations and occasional dizziness. She has seen an chief clerk and was recently started on flecainide. She has been on anticoagulation. 12 point review of systems was performed with all pertinent positives and negatives mentioned above and all else is negative Past Medical History Paroxysmal atrial fibrillation ASD status post closure Medical History: hypertension Past Surgical History ASD closure Family History Significant Family History: no pertinent family hx Social History Alcohol Use: none Smoking Status: Former smoker Exam/Review of Systems Vital Signs Vitals Vital Signs Date Time Temp Pulse Resp B/P Pulse Ox O2 Delivery O2 Flow Rate FiO2 12/23/16 08:45 59 12/23/16 07:24 97.9 20 109/59 96 12/22/16 06:37 Room Air Intake and Output 12/22/16 12/22/16 12/23/16 15:00 23:00 07:00 Intake Total 0 ml 800 ml 900 ml Output Total 0 ml Balance 0 ml 800 ml 900 ml Exam No apparent distress Constitutional: alert, oriented, well developed Head: normocephalic Neck: supple Respiratory: other (Coarse breath sounds bilaterally, no wheezing) Cardiovascular: other (S1-S2 heard), regular rate and rhythm Gastrointestinal: bowel sounds, non-tender, soft Musculoskeletal: other (Pain elicited with palpation of chest wall as well as upper back and shoulders) Extremities: other (No edema) Results Result Diagram: 12/23/1630 12/23/16 0730 Results 24 hrs Laboratory Tests Test 12/22/16 14:10 12/23/16 07:30 Troponin I < 0.012 White Blood Count 7.6 Red Blood Count 4.68 Hemoglobin 14.2 Hematocrit 43.5 Mean Corpuscular Volume 92.9 Mean Corpuscular Hemoglobin 30.3 Mean Corpuscular Hemoglobin Concent 32.6 Red Cell Distribution Width 12.3 Platelet Count 323 Mean Platelet Volume 9.5 Neutrophils % 40.6 Lymphocytes % 48.1 Monocytes % 8.3 Eosinophils % 1.9 Basophils % 0.8 Nucleated Red Blood Cells % 0.0 Neutrophils # 3.1 Lymphocytes # 3.6 H Monocytes # 0.6 Eosinophils # 0.1 Basophils # 0.1 Nucleated Red Blood Cells # 0.0 Sodium Level 139 Potassium Level 4.0 Chloride Level 105 Carbon Dioxide Level 27 Anion Gap 11 Blood Urea Nitrogen 20 Creatinine 0.82 Glucose Level 95 Hemoglobin A1c 5.6 Calcium Level 9.3 Magnesium Level 2.0 Total Bilirubin 0.2 Direct Bilirubin 0.00 Indirect Bilirubin 0.2 Aspartate Amino Transf (AST/SGOT) 23 Alanine Aminotransferase (ALT/SGPT) 32 Alkaline Phosphatase 106 Total Protein 8.2 H Albumin 4.1 Globulin 4.10 H Albumin/Globulin Ratio 1.00 Triglycerides Level 239 H Cholesterol Level 183 LDL Cholesterol, Calculated 88 HDL Cholesterol 47 Cholesterol/HDL Ratio 3.8 Medications Medications Current Medications Lorazepam (Ativan) 0.5 mg Q6H PRN IV ANXIETY; Start 12/22/16 at 06:30 Ondansetron HCl (Zofran Inj) 4 mg Q6H PRN IV NAUSEA AND/OR VOMITING; Start at 06:30 Nitroglycerin (Nitroglycerin (Sl Tab) 0.4 Mg) 1 tab Q5M PRN SL CHEST PAIN; Start 12/22/16 at 06:30 Acetaminophen (Tylenol Tab) 650 mg Q6H PRN PO PAIN LEVEL 1-3 OR FEVER Last administered on 12/22/16 21:12; Admin Dose 650 MG; Start 12/22/16 at 06:30 Morphine Sulfate (morphine) 2 mg Q4H PRN IV PAIN LEVEL 7-10; Start 12/22/16 at 06:30 Apixaban (Eliquis) 5 mg BID PO Last administered on 12/23/16 09:10; Admin Dose 5 MG; Start 12/22/16 at 09:00 Atenolol (Tenormin) 25 mg BID PO Last administered on 12/22/16 09:10; Admin Dose 25 MG; Start 12/22/16 at 09:00; Status Future Hold Pantoprazole (Protonix Tab) 40 mg DAILY@06 PO Last administered on 12/23/16 05 :13; Admin Dose 40 MG; Start 12/22/16 at 07:00 Flecainide Acetate (Tambocor) 50 mg Q12 PO Last administered on 12/22/16 21:10 ; Admin Dose 50 MG; Start 12/22/16 at 21:00 Procedures Procedures ECG demonstrates sinus rhythm at 65 bpm, QRS 96 ms, nonspecific STT wave abnormalities Telemetry reviewed with patient in sinus rhythm, 5.4 second pause at 5:52 AM Sai Esposito DO December 23, 2016 11:04
--- NOTE | 2016-12-23 12:46 | RADRPT ---
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 Physician: ANNE-MARIE MAZARIEGOS Quality: Good Procedures: Transthoracic echocardiogram with complete 2D, M-Mode, and doppler examination. Indications: Chest Pain. 2D/M Mode Doppler Measurement Value Normal Ranges Measurement Value Normal Ranges LVIDd 2D 5.2 3.5 - 5.6 cm AV Peak Toby 1.2 m/sec LVIDs 2D 3.2 2.1 - 4.1 cm AV Peak PG 6.0 mmHg FS 2D 39.2 % LVOT Peak Toby 0.9 m/sec LVPWd 2D 0.9 0.6 - 1.1 cm LVOT Peak PG 3.0 mmHg IVSd 2D 0.8 0.6 - 1.1 cm MV E Peak Toby 0.7 m/sec IVS/LVPW 2D 0.9 MV A Peak Toby 0.7 m/sec AoR Diam 2D 2.9 2.0 - 3.7 cm MV E/A 0.9 LA/Ao 2D 1 0 - 1 MV Decel Time 176 msec EDV 2D 141.0 cm3 MV E/A 0.9 ESV 2D 31.6 cm3 TR Peak Toby 2.9 m/sec LA Dimen 2D 3.3 2.3 - 4.0 cm TR Peak PG 33.0 mmHg RVSP 36.0 mmHg Findings Left Ventricle: Normal left ventricular systolic function. Normal left ventricular cavity size. Normal left ventricular wall thickness. Ejection fraction is visually estimated at 65 %. Abnormal Diastolic Function. Right Ventricle: Normal right ventricular size. Normal right ventricular systolic function. Left Atrium: The left atrium is normal in size. Right Atrium: There is mild enlargement of right atrium. Mitral Valve: Mitral valve leaflets appear mildly thickened. Mild mitral annular calcification. Mild mitral valve regurgitation. The regurgitation jet is eccentrically directed which may underestimate the severity of mitral regurgitation. Aortic Valve: No significant aortic stenosis or insufficiency. Aortic cusps appear mildly calcified. Tricuspid Valve: Normal appearance of the tricuspid valve. Estimated peak PA systolic pressure 36 mmHg. There is mild tricuspid regurgitation. Pulmonic Valve: Normal pulmonic valve appearance. There is trace pulmonic regurgitation. Pericardium: Normal pericardium with no significant pericardial effusion. Aorta: Normal aortic root. IVC: Normal size and normal respiratory collapse consistent with normal right atrial pressure. Conclusions 1.Normal left ventricular systolic function. Normal left ventricular cavity size. Normal left ventricular wall thickness. Ejection fraction is visually estimated at 65 %. Abnormal Diastolic Function. 2.Normal right ventricular size. Normal right ventricular systolic function. 3.The left atrium is normal in size. 4.There is mild enlargement of right atrium. 5.Estimated peak PA systolic pressure 36 mmHg. There is mild tricuspid regurgitation. 6.Mild mitral valve regurgitation. The regurgitation jet is eccentrically directed which may underestimate the severity of mitral regurgitation. 7.No significant aortic stenosis or insufficiency. 8.There is trace pulmonic regurgitation. 9.Normal pericardium with no significant pericardial effusion. Electronically Signed By: Sai Esposito 23-Dec-2016 12:46:07 -0700 Patient Name: ARTURO URIBE Study Date: 23-Dec-2016 [id number]
--- NOTE | 2016-12-23 17:28 | PN ---
Date/Time of Note Date/Time of Note DATE: 12/23/16 TIME: 17:21 Assessment/Plan VTE Prophylaxis VTE Prophylaxis Intervention: ambulation Lines/Catheters IV Catheter Type (from [facility]): [facility] Urinary Cath still in place: No Assessment/Plan Chief Complaint/Hosp Course 1. Chest pain-muscle skeletal in origin ACS ruled out Cardiology consultation appreciated, no further diagnostics 2. Cardiac pause Plan per cardiology is to DC beta-curry and monitor on telemetry overnight 3. Paroxysmal A. fib-currently in sinus Beta-curry held secondary pauses continue, continue flecainide Eliquis discontinued per cardiology 4. History of gastroesophageal reflux disease and erosive esophagitis Continue PPI 5. History of hypertension-stable Prophylaxis: Ambulation Discharge planning: Anticipate DC in a.m. if patient has no further cardiac pauses Problems: Subjective 24 Hr Interval Summary Constitutional: no complaints Exam/Review of Systems Vital Signs Vitals Vital Signs Date Time Temp Pulse Resp B/P Pulse Ox O2 Delivery O2 Flow Rate FiO2 12/23/16 16:39 57 12/23/16 15:36 98.2 20 118/51 100 12/22/16 06:37 Room Air Intake and Output 12/22/16 12/22/16 12/23/16 15:00 23:00 07:00 Intake Total 0 ml 800 ml 900 ml Output Total 0 ml Balance 0 ml 800 ml 900 ml Exam Constitutional: alert Respiratory: clear to auscultation Cardiovascular: regular rate and rhythm Gastrointestinal: soft, No distended Musculoskeletal: nl extremities to inspection Results Result Diagram: 12/23/16 0730 12/23/16 0730 Results 24 hrs Laboratory Tests Test 12/23/16 07:30 White Blood Count 7.6 Red Blood Count 4.68 Hemoglobin 14.2 Hematocrit 43.5 Mean Corpuscular Volume 92.9 Mean Corpuscular Hemoglobin 30.3 Mean Corpuscular Hemoglobin Concent 32.6 Red Cell Distribution Width 12.3 Platelet Count 323 Mean Platelet Volume 9.5 Neutrophils % 40.6 Lymphocytes % 48.1 Monocytes % 8.3 Eosinophils % 1.9 Basophils % 0.8 Nucleated Red Blood Cells % 0.0 Neutrophils # 3.1 Lymphocytes # 3.6 H Monocytes # 0.6 Eosinophils # 0.1 Basophils # 0.1 Nucleated Red Blood Cells # 0.0 Sodium Level 139 Potassium Level 4.0 Chloride Level 105 Carbon Dioxide Level 27 Anion Gap 11 Blood Urea Nitrogen 20 Creatinine 0.82 Glucose Level 95 Hemoglobin A1c 5.6 Calcium Level 9.3 Magnesium Level 2.0 Total Bilirubin 0.2 Direct Bilirubin 0.00 Indirect Bilirubin 0.2 Aspartate Amino Transf (AST/SGOT) 23 Alanine Aminotransferase (ALT/SGPT) 32 Alkaline Phosphatase 106 Total Protein 8.2 H Albumin 4.1 Globulin 4.10 H Albumin/Globulin Ratio 1.00 Triglycerides Level 239 H Cholesterol Level 183 LDL Cholesterol, Calculated 88 HDL Cholesterol 47 Cholesterol/HDL Ratio 3.8 Medications Medications Current Medications Lorazepam (Ativan) 0.5 mg Q6H PRN IV ANXIETY; Start 12/22/16 at 06:30 Ondansetron HCl (Zofran Inj) 4 mg Q6H PRN IV NAUSEA AND/OR VOMITING; Start at 06:30 Nitroglycerin (Nitroglycerin (Sl Tab) 0.4 Mg) 1 tab Q5M PRN SL CHEST PAIN; Start 12/22/16 at 06:30 Acetaminophen (Tylenol Tab) 650 mg Q6H PRN PO PAIN LEVEL 1-3 OR FEVER Last administered on 12/22/16 21:12; Admin Dose 650 MG; Start 12/22/16 at 06:30 Morphine Sulfate (morphine) 2 mg Q4H PRN IV PAIN LEVEL 7-10; Start 12/22/16 at 06:30 Pantoprazole (Protonix Tab) 40 mg DAILY@06 PO Last administered on 12/23/16 05 :13; Admin Dose 40 MG; Start 12/22/16 at 07:00 Flecainide Acetate (Tambocor) 50 mg Q12 PO Last administered on 12/22/16 21:10 ; Admin Dose 50 MG; Start 12/22/16 at 21:00 ANNE-MARIE MAZARIEGOS December 23, 2016 17:28
[2016-12-23] MEDS: DOCUSATE SODIUM 100 MG CAP PO SCH (20:33)
[2016-12-23] MEDS: ACETAMINOPHEN 325 MG TAB PO PRN (20:33)
[2016-12-24] VITALS (7 sets, daily range): BP systolic 120–123; BP diastolic 60–63; PULSE 59–69; RESP 18–19
[2016-12-24] MEDS: PANTOPRAZOLE (EC) 40 MG TAB PO SCH (05:44)
[2016-12-24] MEDS: FLECAINIDE 50 MG TAB PO SCH (10:10)
[2016-12-24] MEDS: DOCUSATE SODIUM 100 MG CAP PO SCH (10:10)
[2016-12-24] MEDS: ACETAMINOPHEN 325 MG TAB PO PRN (10:12)
--- NOTE | 2016-12-24 13:07 | CONS ---
Date/Time of Note Date/Time of Note DATE: 12/24/16 TIME: 13:04 Assessment/Plan Assessment/Plan Additional Assessment/Plan Paroxysmal atrial fibrillation, currently sinus rhythm 5 second pause Preserved ejection fraction History of ASD closure Back, neck, shoulder and chest pain -Patient's telemetry reviewed. Since stopping atenolol, no further pauses seen. Feeling better with no further symptoms of dizziness, palpitations or lightheadedness. Would continue flecainide and hold off on beta curry. Restart Eliquis. No need for pacemaker at the current time. DC planning. Consultation Date/Type/Reason Admit Date/Time December 22, 2016 at 04:46 Initial Consult Date Type of Consultation: cv 24 HR Interval Summary Free Text/Dictation Patient feeling much better. No further episodes of dizziness or palpitations. Denies chest pain. Still complaining of mild back pain Exam/Review of Systems Vital Signs Vitals Vital Signs Date Time Temp Pulse Resp B/P Pulse Ox O2 Delivery O2 Flow Rate FiO2 12/24/16 12:00 64 12/24/16 11:32 98.1 19 121/60 99 12/22/16 06:37 Room Air Intake and Output 12/23/16 12/23/16 12/24/16 15:00 23:00 07:00 Intake Total 1000 ml 1050 ml Balance 1000 ml 1050 ml Exam No apparent distress, walking around the room Constitutional: alert, oriented Head: normocephalic Neck: supple Respiratory: clear to auscultation, normal air movement Cardiovascular: other (S1-S2 heard), regular rate and rhythm Gastrointestinal: bowel sounds, non-tender, soft Extremities: other (No edema) Results Result Diagram: 12/23/16 0730 12/23/16 0730 Medications Medications Current Medications Lorazepam (Ativan) 0.5 mg Q6H PRN IV ANXIETY; Start 12/22/16 at 06:30 Ondansetron HCl (Zofran Inj) 4 mg Q6H PRN IV NAUSEA AND/OR VOMITING; Start at 06:30 Nitroglycerin (Nitroglycerin (Sl Tab) 0.4 Mg) 1 tab Q5M PRN SL CHEST PAIN; Start 12/22/16 at 06:30 Acetaminophen (Tylenol Tab) 650 mg Q6H PRN PO PAIN LEVEL 1-3 OR FEVER Last administered on 12/24/16 10:12; Admin Dose 650 MG; Start 12/22/16 at 06:30 Morphine Sulfate (morphine) 2 mg Q4H PRN IV PAIN LEVEL 7-10; Start 12/22/16 at 06:30 Pantoprazole (Protonix Tab) 40 mg DAILY@06 PO Last administered on 12/24/16 05 :44; Admin Dose 40 MG; Start 12/22/16 at 07:00 Flecainide Acetate (Tambocor) 50 mg Q12 PO Last administered on 12/24/16 10:10 ; Admin Dose 50 MG; Start 12/22/16 at 21:00 Docusate Sodium (Colace) 100 mg BID PO Last administered on 12/24/16 10:10; Admin Dose 100 MG; Start 12/23/16 at 21:00 Sai Esposito DO December 24, 2016 13:07
--- NOTE | 2016-12-24 13:52 | PDOCDIS ---
Discharge Instructions CONDITION Patient Condition: Good HOME CARE INSTRUCTIONS: Diet Instructions: Regular ACTIVITY: Activity Restrictions: No Restrictions FOLLOW UP/APPOINTMENTS Appointments F/U WITH YOUR PCP IN 1-2 WEEKS ANNE-MARIE MAZARIEGOS December 24, 2016 13:52
[2016-12-24] MEDS ORDERED: APIXABAN 5 MG TABLET PO SCH (21:00)
--- NOTE | 2016-12-25 18:13 | DS ---
DATE OF ADMISSION: 12/22/2016 DATE OF DISCHARGE: 12/24/2016 DISCHARGE DIAGNOSES: 1. Chest pain, likely musculoskeletal in origin. Acute coronary syndrome ruled out. Aortic dissec tion ruled out. 2. Cardiac pause likely secondary to beta curry, now resolved with discontinuation of beta blocke r. 3. Paroxysmal atrial fibrillation. Currently in sinus. Beta curry held upon discharge secondary to pause. Continue flecainide and Eliquis. 4. History of gastroesophageal reflux and erosive esophagitis. Continue proton pump inhibitor. 5. History of hypertension, stable. HOSPITAL COURSE: The patient is a 66-year-old female with a history of hypertension, AFib, GERD katherine kennedi gastritis. The patient presents with a chief complaint of chest pain. The patient states the pain was in the chest as well as in the back. Patient was ruled out for ACS with negative troponins . She was seen by cardiology and she was noted to have a cardiac pause that was felt to be secondar y to her beta curry that she was taking at home. The beta curry was held. The patient was in s inus rhythm. Of note, the patient had a CT of the chest to rule out any aortic dissection or PE and it was negative for those things. CTA of the chest did not show any significant findings. It did show atherosclerotic changes of the thoracic and upper abdominal aorta without evidence of aneurysm. The patient was monitored overnight after having a pause and after the beta curry was held. She had no further pauses. She was felt to be stable for discharge per cardiology. On day of discharg e, vitals, labs, physical exam showed no acute complaints and questions answered. CONDITION ON DISCHARGE: Stable. DISPOSITION: To home. MEDICATIONS: The patient to continue her usual home medications, but she was told to stop taking he r atenolol. No new medications were prescribed. She is to follow up with her PCP in 1 to 2 weeks. Thirty six minutes were spent coordinating discharge of this patient. Dictated By: ANNE-MARIE MAZARIEGOS MD BS/ARACELI Conf#: [id number] DID#: [id number]
== END 2016-12-24 16:00 | disposition home or self-care (01) ==
LOC: E/R 01:45 → TEL 04:46 → E/R 05:18
PROVIDERS: ADMIT Internal Medicine; ATTEND Internal Medicine
DX: R07.9 Chest pain, unspecified (principal); I48.0 Paroxysmal atrial fibrillation; I10 Essential (primary) hypertension; Z98.61 Coronary angioplasty status
CPT/HCPCS: 36415; 71010; 71275; 80053; 80061; 83036; 83735; 83880; 84484; 85025; 85610; 85730; 93005; 93306; 99285; G0378; J7040; Q9967

== ENCOUNTER 2016-12-28 23:07 | Inpatient (IN) | payer OTHER ==
[~2016-12-28] VITALS: Ht 162.6 cm; Wt 73.0 kg
[~2016-12-28 23:07] MED LIST changes: +APIX5TAB PO; -ASPI-664 PO; -ATEN-51 PO; +FLEC50TA PO
--- NOTE | 2016-12-28 23:34 | ERA ---
ER Documentation Chief Complaint Date/Time DATE: 12/28/16 TIME: 23:34 Chief Complaint c/o htn and palpitations, was dc thur has hx of afib w/ rvr HPI The patient is a 66-year-old female, presenting to the ER because of intermittent palpitations for the last 3 days after she was discharged. She was advised to stop atenolol because of cardiac pause and put on flecainide, however she is still complaining of intermittent palpitation. She denies syncope, near syncope, neck pain, chest pain, dyspnea, abdominal pain, vomiting , dysuria. He does not smoke nor drink Past medical history: History of proximal atrial fibrillation, CAD, hypertension , GERD, history of erosive esophagitis Past surgical history: Stent PCI, cholecystectomy, hiatal hernia ROS All systems reviewed and are negative except as per history of present illness. Medications Home Meds Reported Medications Apixaban* (Eliquis*) 5 Mg Tablet, 5 MG PO BID, TAB 12/22/16 Flecainide Acetate* (Flecainide Acetate*) 50 Mg Tablet, 50 MG PO Q12, TAB 12/22/16 Omeprazole* (Omeprazole*) 20 Mg Capsule.dr, 20 MG PO DAILY 07/26/15 Discontinued Reported Medications Atenolol* (Atenolol*) 25 Mg Tablet, 25 MG PO BID, TAB 11/27/14 Aspirin* (Aspirin* EC) 81 Mg Tablet.dr, 81 MG PO DAILY, TAB 11/27/14 Allergies Allergies: Coded Allergies: No Known Allergy (Unverified , 12/29/16) PMhx/Soc History of Surgery: Yes (stent placement 1998, cholecycstecomy, hiatal hernia repair) Anesthesia Reaction: No Hx Neurological Disorder: No Hx Respiratory Disorders: No Hx Cardiac Disorders: Yes (Afib controlled, SB, HTN) Hx Psychiatric Problems: No Hx Miscellaneous Medical Probl: No Hx Alcohol Use: No Hx Substance Use: No Hx Tobacco Use: Yes (quit) Smoking Status: Former smoker Physical Exam Vitals Vital Signs Date Time Temp Pulse Resp B/P Pulse Ox O2 Delivery O2 Flow Rate FiO2 12/28/16 23:52 Nasal Cannula 3 12/28/16 23:29 112 21 161/66 99 Room Air 12/28/16 23:12 98.1 70 20 176/75 98 Physical Exam Const: No acute distress. Head: Atraumatic. Eyes: Normal Conjunctiva. ENT: Normal External Ears, Nose and Mouth. Neck: Full range of motion. No meningismus. Resp: Irregularly irregular tachycardic Cardio: Regular rate and rhythm, no murmurs. Abd: Soft, non distended, normal bowel sounds, non tender. Skin: No petechiae or rashes. Back: No midline or flank tenderness. Ext: No cyanosis, or edema. Neur: Awake and alert. No focal deficit Psych: Normal Mood and Affect. Result Diagram: 12/28/162 12/28/162 Results 24 hrs Laboratory Tests Test 12/28/16 23:52 White Blood Count 8.310^3/ul Red Blood Count 4.3110^6/ul Hemoglobin 13.3g/dl Hematocrit 39.0% Mean Corpuscular Volume 90.5fl Mean Corpuscular Hemoglobin 30.9pg Mean Corpuscular Hemoglobin Concent 34.1g/dl Red Cell Distribution Width 11.9% Platelet Count 19993^3/UL Mean Platelet Volume 9.3fl Neutrophils % 43.2% Lymphocytes % 45.0% Monocytes % 9.2% Eosinophils % 1.7% Basophils % 0.7% Nucleated Red Blood Cells % 0.0/100WBC Neutrophils # 3.610^3/ul Lymphocytes # 3.710^3/ul Monocytes # 0.810^3/ul Eosinophils # 0.110^3/ul Basophils # 0.110^3/ul Nucleated Red Blood Cells # 0.010^3/ul Prothrombin Time 14.4Sec Prothrombin Time Ratio 1.1 INR International Normalized Ratio 1.12 Activated Partial Thromboplast Time 32.7Sec Sodium Level 138mmol/L Potassium Level 3.8mmol/L Chloride Level 104mmol/L Carbon Dioxide Level 28mmol/L Anion Gap 10 Blood Urea Nitrogen 24mg/dl Creatinine 1.19mg/dl Glucose Level 101mg/dl Calcium Level 9.7mg/dl Troponin I < 0.012ng/ml [facility]/[place] [id number] Radiology Main Line: [phone] DIAGNOSTIC IMAGING REPORT Patient: ARTURO URIBE : 1950 Age: 66 Sex: F MR #: [id number] [facility] #: [id number] DOS: 12/28/16 2340 Ordering MD: JENNY JACOBO MD Location: E/R Room/Bed: PROCEDURE: XR Chest. CLINICAL INDICATION: Chest pain. TECHNIQUE: Single frontal view of the chest. COMPARISON: 10/25/2016. FINDINGS: Cardiomegaly. Atherosclerotic calcifications in the thoracic aorta. Pulmonary vascular ingestion and left lung base air space disease with discoid atelectasis at the right lung base.. No signs of pleural fluid or pneumothorax are seen. The osseous structures and soft tissues are unremarkable. IMPRESSION: 1. Left lung base air space disease. 2. Discoid atelectasis at the right lung base. 3. Mild pulmonary vascular congestion. RPTAT: [facility] Physician Pedro Pablo Date Time Electronically viewed and signed by Physician Pedro Pablo on 12/29/2016 01:08 RS/ CC: JENNY JACOBO MD EKG: At 11:40 PM read by emergency physician Rate/Rhythm: Atrial fibrillation 112 beats/min with RVR QRS, ST, T-waves: No ST elevation, no T inversion, inferior, anterior, lateral ST and T abnormality Impression: Abnormal EKG EKG: At 1:08 AM read by emergency physician Rate/Rhythm: Atrial fibrillation 77 beats/min QRS, ST, T-waves: No ST elevation, no T inversion, nonspecific T abnormality , prolonged QT Impression: Abnormal EKG She had a long cardiac pauses about 3.5 second on the monitor, however she did not have any symptoms MEDICAL MAKING DECISION: The patient is a 66-year-old female, presenting with intermittent recurrent atrial fibrillation with RVR and long cardiac pauses of unclear etiology. The differential diagnoses considered include but are not limited to acute coronary syndrome, acute myocardial infarction, pericarditis, pulmonary embolism , aortic dissection, pneumonia, pleural effusion, pneumothorax, GERD, chest wall pain. Departure Diagnosis: Primary Impression: Atrial fibrillation Condition: Stable Comments I discussed the findings with the patient. I discussed the patient with the on- call hospitalist Dr. Myers at 1:30 AM who was made aware of the lab, the treatment, the patient condition. The patient is admitted to telemetry JENNY JACOBO MD December 28, 2016 23:34
[2016-12-28 23:59] LABS: ADD SCAN DIFF NO
[2016-12-29] VITALS (13 sets, daily range): BP systolic 115–135; BP diastolic 60–67; PULSE 61–110; RESP 16–20; Ht 162.6 cm; Wt 73.0 kg
[2016-12-29 00:01] LABS: BASOPHIL # 0.1 10^3/ul (0.0-0.1); BASOPHILS % 0.7 % (0.0-2.0); EOSINOPHILS # 0.1 10^3/ul (0.0-0.5); EOSINOPHILS % 1.7 % (0.0-7.0); HEMOGLOBIN 13.3 g/dl (12.0-16.0); LYMPHOCYTES # 3.7 10^3/ul (0.8-2.9); MEAN CORPUSCULAR HEMOGLOBIN 30.9 pg (29.0-33.0); MEAN CORPUSCULAR HGB CONC 34.1 g/dl (32.0-37.0); MEAN CORPUSCULAR VOLUME 90.5 fl (82.0-101.0); MEAN PLATELET VOLUME 9.3 fl (7.4-10.4); MONOCYTE # 0.8 10^3/ul (0.3-0.9); MONOCYTES % 9.2 % (0.0-11.0); NEUTROPHIL # 3.6 10^3/ul (1.6-7.5); NEUTROPHILS % 43.2 % (39.0-77.0); PLATELET COUNT 277 10^3/UL (140-415); RED BLOOD COUNT 4.31 10^6/ul (4.20-5.40); RED CELL DISTRIBUTION WIDTH 11.9 % (11.5-14.5); WHITE BLOOD COUNT 8.3 10^3/ul (4.8-10.8)
[2016-12-29 00:18] LABS: INR 1.12; PROTIME 14.4 Sec (12.2-14.2); PT RATIO 1.1
[2016-12-29 00:19] LABS: PARTIAL THROMBOPLASTIN TIME 32.7 Sec (25.0-35.0)
[2016-12-29 00:22] LABS: ANION GAP 10 (8-16); BLOOD UREA NITROGEN 24 mg/dl (7-20); CALCIUM 9.7 mg/dl (8.4-10.2); CARBON DIOXIDE 28 mmol/L (21-31); CHLORIDE 104 mmol/L (97-110); CREATININE 1.19 mg/dl (0.44-1.00); GLUCOSE 101 mg/dl (70-220); POTASSIUM 3.8 mmol/L (3.5-5.1); SODIUM 138 mmol/L (135-144)
[2016-12-29 00:39] LABS: TROPONIN-I < 0.012 ng/ml (0.00-0.12)
--- NOTE | 2016-12-29 01:09 | RADRPT ---
PROCEDURE: XR Chest. CLINICAL INDICATION: Chest pain. TECHNIQUE: Single frontal view of the chest. COMPARISON: 10/25/2016. FINDINGS: Cardiomegaly. Atherosclerotic calcifications in the thoracic aorta. Pulmonary vascular ingestion a nd left lung base air space disease with discoid atelectasis at the right lung base.. No signs of pl eural fluid or pneumothorax are seen. The osseous structures and soft tissues are unremarkable. IMPRESSION: 1. Left lung base air space disease. 2. Discoid atelectasis at the right lung base. 3. Mild pulmonary vascular congestion. RPTAT: [facility] Physician Pedro Pablo Date Time Electronically viewed and signed by Physician Pedro Pablo on 12/29/2016 01:08 RS/
[2016-12-29] MEDS ORDERED: SOD CHLORIDE 0.9% 1,000 ML IV SCH ×2 (03:29→23:00)
[2016-12-29] MEDS ORDERED: LORAZEPAM 2 MG INJ IV PRN (03:30)
[2016-12-29] MEDS ORDERED: BISACODYL (EC) 5 MG TAB PO PRN (03:30)
[2016-12-29] MEDS ORDERED: NITROGLYCERIN (SL) 0.4 MG TAB SL PRN (03:30)
[2016-12-29] MEDS ORDERED: ACETAMINOPHEN 325 MG TAB PO PRN (03:30)
[2016-12-29] MEDS ORDERED: DOCUSATE SODIUM 100 MG CAP PO PRN (03:30)
[2016-12-29] MEDS ORDERED: NACL 0.9% 3 ML SYG IV SCH (03:30)
[2016-12-29] MEDS ORDERED: FLECAINIDE 50 MG TAB PO SCH ×2 (04:00→09:00)
--- NOTE | 2016-12-29 05:30 | HP ---
Date/Time of Note Date/Time of Note DATE: 12/29/16 TIME: 03:25 Assessment/Plan VTE Prophylaxis VTE Prophylaxis Intervention: other (Eliquis) Lines/Catheters IV [facility] [place] Assessment/Plan Chief Complaint/Hosp Course This is a 66-year-old female being admitted to the telemetry floor for: #1 Cardiac pause/palpitations: Patient has a history of palpitations from her previous visit. She was started on flecainide. Upon admission today patient was noted to have a 3 second pause on telemetry. She has stated that since her discharge she has continued to have palpitations. Cardiology has been consulted and will hold flecainide for now as per the recommendation. Continue to monitor on telemetry. Keep patient n.p.o. Her most recent echocardiogram from approximately 1 week ago showed an ejection fraction of 65%. IV fluids at 70 cc an hour. #2 atrial fibrillation: Patient is currently rate controlled we will continue patient's Eliquis, cardiology is on consult. On telemetry #3 CAD: Stable cardiology consulted #4 hypertension: Stable at this time not on any hypertensive medications at this point. Will continue to follow #5 GERD: We will continue Protonix #6 history of erosive esophagitis: We will continue Protonix #7 DVT and GI prophylaxis: Patient currently on Eliquis, Protonix Further treatment strategy will be implemented as per the clinical course Problems: HPI/ROS Admit Date/Time Admit Date/Time December 29, 2016 at 01:33 Hx of Present Illness Chief complaint: Palpitations The patient is a 66-year-old female, presenting to the ER because of intermittent palpitations for the last 3 days after she was discharged. She was advised to stop atenolol because of cardiac pause and put on flecainide, however she is still complaining of intermittent palpitations that have gotten worse. She denies syncope, near syncope, neck pain, chest pain, dyspnea, abdominal pain, vomiting, dysuria. She does not smoke nor drink. allergies: nkda Meds: see MEENU SPENCE Const: As per HPI Eyes : No pain discharge or redness or change in visual acuity ENT: No pain, sore throat, congestion, congestion, dysphagia or discharge Respiratory: No shortness of breath, cough, sputum, wheezing, or pleuritic pain Cardiovascular: As per HPI GI : no change in appetite, abdominal pain, nausea, vomiting, diarrhea, constipation, or change in the color his stool Genitourinary: No dysuria, hematuria, flank pain , discharge or CVA tenderness Musculoskeletal: No joint pain, back pain, neck pain, restricted range of motion in neck or joints Skin: No rash, bruising or hives Neuro: No headache, dizziness, syncope, seizure, focal weakness Endocrine: No polyuria, polydipsia, temperature intolerance Psych: No hallucination, depression, anxiety or suicidal ideation PMH/Family/Social Past Medical History History of proximal atrial fibrillation, CAD, hypertension, GERD, history of erosive esophagitis Past Surgical History Stent PCI, cholecystectomy, hiatal hernia Family History Significant Family History: heart disease (brother) Social History She smoked a pack a day for about 15 years, but she quit many years ago. Drinks alcohol occasionally. Denied a history of illicit drug use Smoking Status: Former smoker Exam/Review of Systems Vital Signs Vitals Vital Signs Date Time Temp Pulse Resp B/P Pulse Ox O2 Delivery O2 Flow Rate FiO2 12/29/16 01:30 68 18 134/88 99 Nasal Cannula 3.0 12/28/16 23:12 98.1 Exam Exam General: Patient is well-developed well-nourished The patient is alert oriented -3 lying comfortably in bed in no acute HEENT: Atraumatic, normocephalic. The pupils are equal, round and reactive. Extraocular motor are intact Neck: Supple with full range of motion. No rigidity or meningismus Chest: Nontender Lungs: Clear to auscultation bilaterally no crackles rales or wheezing Heart: Normal S1-S2, Regular rhythm and rate. No overt murmur appreciated Abdomen: Soft , nontender, nondistended , bowel sounds are present. No guarding no rebound tenderness , No masses or organomegaly. Extremities: Normal to inspection, no edema no cyanosis Neurologic: Normal mental status, speech normal, cranial nerves II through XII are intact, motor and sensory are intact, no focal weakness Additional Comments PROCEDURE: XR Chest. CLINICAL INDICATION: Chest pain. TECHNIQUE: Single frontal view of the chest. COMPARISON: 10/25/2016. FINDINGS: Cardiomegaly. Atherosclerotic calcifications in the thoracic aorta. Pulmonary vascular ingestion and left lung base air space disease with discoid atelectasis at the right lung base.. No signs of pleural fluid or pneumothorax are seen. The osseous structures and soft tissues are unremarkable. IMPRESSION: 1. Left lung base air space disease. 2. Discoid atelectasis at the right lung base. 3. Mild pulmonary vascular congestion. RPTAT: [facility] Physician Pedro Pablo Date Time Electronically viewed and signed by Physician Pedro Pablo on 12/29/2016 01:08 EKG: Rate/Rhythm: Atrial fibrillation 77 beats/min QRS, ST, T-waves No ST elevation, no T inversion, nonspecific T abnormality, prolonged QT As per ED physician documentation Labs Result Diagram: 12/28/16 2352 12/28/16 2352 NATASHA ALVAREZ December 29, 2016 03:46
[2016-12-29] MEDS: PANTOPRAZOLE (EC) 40 MG TAB PO SCH (06:00)
[2016-12-29 07:40] LABS: CREATINE KINASE 64 IU/L (23-200)
[2016-12-29 07:44] LABS: CK-MB 0.35 ng/ml (0.0-2.4)
[2016-12-29 08:05] LABS: TROPONIN-I < 0.012 ng/ml (0.00-0.12)
[2016-12-29] MEDS ORDERED: APIXABAN 5 MG TABLET PO SCH (09:00)
[2016-12-29] MEDS ORDERED: NON-FORMULARY/PATIENT OWN MED (Omeprazole* 20 MG) PO SCH (09:00)
[2016-12-29 12:03] LABS: CREATINE KINASE 60 IU/L (23-200)
[2016-12-29 12:13] LABS: CK-MB 0.35 ng/ml (0.0-2.4)
[2016-12-29 12:16] LABS: TROPONIN-I < 0.012 ng/ml (0.00-0.12)
[2016-12-29 12:40] LABS: T3 UPTAKE 36.6 % (23.5-40.5)
[2016-12-29 12:53] LABS: THYROID STIMULATING HORMONE 2.13 MIU/L (0.465-4.680)
--- NOTE | 2016-12-29 13:22 | CONS ---
Date/Time of Note Date/Time of Note DATE: 12/29/16 TIME: 13:17 Assessment/Plan Assessment/Plan Additional Assessment/Plan Paroxysmal atrial fibrillation with frequent pauses Preserved ejection fraction Hypertension -Patient with frequent pauses noted on telemetry, close to 5 seconds. Patient currently off of beta-curry. Patient also with episodes of rapid ventricular rates as well. Patient will need pacemaker and afterwards reinitiation of AV wilfredo blocking agents to help with rapid ventricular rates. Would hold Eliquis. Tentatively plan for pacemaker tomorrow 12/30/[address] surgery colleague Dr. Last Consultation Date/Type/Reason Admit Date/Time December 29, 2016 at 01:33 Type of Consultation: cv Reason for Consultation Arrhythmia Hx of Present Illness This is a 66-year-old female with history of paroxysmal atrial fibrillation, preserved ejection fraction who presents with symptoms of dizziness and lightheadedness and palpitations. Patient with recent admission last week with similar symptoms. Once beta-curry was stopped, symptoms resolved and no further pauses noted on telemetry. Patient went home and felt fine for 1-2 days but over the weekend, had recurrent episodes of palpitations and then dizziness and lightheadedness afterwards. She denies any chest pain, shortness of breath, abdominal pain. During these episodes of dizziness, she did feel nauseous. 12 point review of systems was performed with all pertinent positives and negatives mentioned above and all else is negative Past Medical History Paroxysmal atrial fibrillation Preserved ejection fraction History of ASD closure Past Surgical History ASD closure Family History Significant Family History: no pertinent family hx Social History Alcohol Use: none Smoking Status: Former smoker Other Social History Lives at home Exam/Review of Systems Vital Signs Vitals Vital Signs Date Time Temp Pulse Resp B/P Pulse Ox O2 Delivery O2 Flow Rate FiO2 12/29/16 12:14 97.6 64 20 119/66 99 12/29/16 01:30 Nasal Cannula 3.0 Exam No apparent distress Constitutional: alert, oriented, well developed Head: normocephalic Neck: supple Respiratory: clear to auscultation, normal air movement Cardiovascular: other (S1-S2 heard, no murmurs appreciated), regular rate and rhythm Gastrointestinal: bowel sounds, non-tender, other (No guarding), soft Extremities: other (No edema or cyanosis) Results Result Diagram: 12/28/16 2352 12/28/16 2352 Results 24 hrs Laboratory Tests Test 12/28/16 23:52 12/29/16 06:45 12/29/16 11:30 White Blood Count 8.3 Red Blood Count 4.31 Hemoglobin 13.3 Hematocrit 39.0 Mean Corpuscular Volume 90.5 Mean Corpuscular Hemoglobin 30.9 Mean Corpuscular Hemoglobin Concent 34.1 Red Cell Distribution Width 11.9 Platelet Count 277 Mean Platelet Volume 9.3 Neutrophils % 43.2 Lymphocytes % 45.0 Monocytes % 9.2 Eosinophils % 1.7 Basophils % 0.7 Nucleated Red Blood Cells % 0.0 Neutrophils # 3.6 Lymphocytes # 3.7 H Monocytes # 0.8 Eosinophils # 0.1 Basophils # 0.1 Nucleated Red Blood Cells # 0.0 Prothrombin Time 14.4 H Prothrombin Time Ratio 1.1 INR International Normalized Ratio 1.12 Activated Partial Thromboplast Time 32.7 Sodium Level 138 Potassium Level 3.8 Chloride Level 104 Carbon Dioxide Level 28 Anion Gap 10 Blood Urea Nitrogen 24 H Creatinine 1.19 H Glucose Level 101 Calcium Level 9.7 Troponin I < 0.012 < 0.012 < 0.012 Creatine Kinase 64 60 Creatine Kinase Index 0.5 0.6 Creatinine Kinase MB (Mass) 0.35 0.35 Thyroid Stimulating Hormone (TSH) 2.130 Free Thyroxine Index 3.70 Thyroxine (T4) 10.1 Triiodothyronine (T3) Uptake 36.6 Medications Medications Current Medications Sodium Chloride (NS) 1,000 ml @ 70 mls/hr [id number] IV Last administered on 12/29t 05:30; Admin Dose 70 MLS/HR; Start 12/29/16 at 03:29 Lorazepam (Ativan) 0.5 mg Q6H PRN IV ANXIETY; Start 12/29/16 at 03:30 Ondansetron HCl (Zofran Inj) 4 mg Q6H PRN IV NAUSEA AND/OR VOMITING; Start at 03:30 Nitroglycerin (Nitroglycerin (Sl Tab) 0.4 Mg) 1 tab Q5M PRN SL CHEST PAIN; Start 12/29/16 at 03:30 Acetaminophen (Tylenol Tab) 650 mg Q6H PRN PO PAIN LEVEL 1-3 OR FEVER; Start at 03:30 Docusate Sodium (Colace) 100 mg Q12H PRN PO CONSTIPATION; Start 12/29/16 at 03: 30 Bisacodyl (Dulcolax) 5 mg DAILY PRN PO CONSTIPATION; Start 12/29/16 at 03:30 Apixaban (Eliquis) 5 mg BID PO ; Start 12/29/16 at 09:00 Pantoprazole (Protonix Tab) 40 mg DAILY@06 PO ; Start 12/29/16 at 06:00 Procedures Procedures Telemetry reviewed with episodes of paroxysmal atrial fibrillation with frequent pauses usually converting from atrial for ablation to sinus longest being close to 5 seconds. Sai Esposito DO December 29, 2016 13:22
[2016-12-29] MEDS: ACYCLOVIR 200 MG CAP PO SCH (21:22)
[2016-12-30] VITALS (24 sets, daily range): BP systolic 118–137; BP diastolic 51–74; PULSE 69–86; RESP 15–22
[2016-12-30] MEDS: PANTOPRAZOLE (EC) 40 MG TAB PO SCH (05:59)
[2016-12-30 08:00] LABS: ADD SCAN DIFF NO
--- NOTE | 2016-12-30 08:05 | OPR ---
DATE OF OPERATION: 12/29/2016 REQUESTING PHYSICIAN: Dr. Esposito CONSULTING PHYSICIAN: Dr. Philippe Last REASON FOR CONSULTATION: To evaluate for pacemaker insertion. HISTORY OF PRESENT ILLNESS: The patient is a -nyrt-ney female with a history of atrial fibrill ation who has had several pauses greater than 3 seconds up to 30 overnight last night. She was admi tted with shortness of breath and chest pain. She has had a long history of atrial fibrillation and is requiring her medications for control otherwise she goes into rapid ventricular response. PAST MEDICAL HISTORY: Atrial fibrillation. PAST SURGICAL HISTORY: Hernia repair. ALLERGIES: NO KNOWN DRUG ALLERGIES. MEDICATIONS: She is on: 1. Eliquis. 2. Metoprolol. FAMILY HISTORY: No history of atrial fibrillation, coronary artery disease. ALLERGIES: HABITS: Denies tobacco or alcohol. SOCIAL HISTORY: She is a Jehovah Witness. REVIEW OF SYSTEMS: HEENT: Denies any visual or auditory problems. RESPIRATORY: See HPI. CARDIAC: See HPI. GENITOURINARY: Denies hematuria, dysuria. GASTROINTESTINAL: Denies any blood per rectum, nausea, vomiting. EXTREMITIES: Denies any edema, claudication. NEUROLOGIC: Denies TIA, headaches. Denies any lesions or rashes. MUSCULOSKELETAL: Denies any back pain or joint pain. PSYCHIATRIC: Denies depression, anxiety. PHYSICAL EXAMINATION: GENERAL APPEARANCE: Her heart rate is in the 50s. She has had several pauses as seen on telemetry. VITAL SIGNS: Blood pressure is 110/60, respiratory rate 14. HEENT: Pupils equal, round, react to light. NECK: Supple, no adenopathy, no bruits. LUNGS: Clear to auscultation. No wheezing. CARDIOVASCULAR: Irregular with no murmurs. ABDOMEN: Soft, nontender, no organomegaly. EXTREMITIES: 2+ pulses. No edema. NEUROLOGIC: Cranial nerves II through XII intact. Motor and sensory intact. SKIN: No lesions or rashes. MUSCULOSKELETAL: No back tenderness or joint tenderness. PSYCHIATRIC: Mood and affect normal. ASSESSMENT AND PLAN: This is a 54-year-old female with sick sinus syndrome and several 3 second mahogany ses or more. She will need a permanent pacemaker. I explained to the benefits, the risks, alternat lisa of surgery. The risks are not limited to bleeding, infection, pneumothorax. She understands a nd consents. We will schedule her for tomorrow. Dictated By: PHILIPPE PRO/ARACELI Conf#: [id number] DID#: [id number] CC: JENNY ESPOSITO DO;*EndCC*
[2016-12-30 08:08] LABS: BASOPHILS % 0.6 % (0.0-2.0); EOSINOPHILS # 0.1 10^3/ul (0.0-0.5); EOSINOPHILS % 1.9 % (0.0-7.0); HEMATOCRIT 40.1 % (37.0-47.0); HEMOGLOBIN 13.6 g/dl (12.0-16.0); LYMPHOCYTES # 2.9 10^3/ul (0.8-2.9); LYMPHOCYTES % 42.8 % (15.0-51.0); MEAN CORPUSCULAR HEMOGLOBIN 30.6 pg (29.0-33.0); MEAN CORPUSCULAR HGB CONC 33.9 g/dl (32.0-37.0); MEAN CORPUSCULAR VOLUME 90.1 fl (82.0-101.0); MEAN PLATELET VOLUME 9.6 fl (7.4-10.4); MONOCYTE # 0.6 10^3/ul (0.3-0.9); MONOCYTES % 9.1 % (0.0-11.0); NEUTROPHIL # 3.1 10^3/ul (1.6-7.5); NEUTROPHILS % 45.3 % (39.0-77.0); PLATELET COUNT 302 10^3/UL (140-415); RED BLOOD COUNT 4.45 10^6/ul (4.20-5.40); RED CELL DISTRIBUTION WIDTH 11.9 % (11.5-14.5); WHITE BLOOD COUNT 6.8 10^3/ul (4.8-10.8)
[2016-12-30 08:19] LABS: ALBUMIN 4.2 g/dl (3.3-4.9); ALBUMIN/GLOBULIN RATIO 1.27; BILIRUBIN,INDIRECT 0.3 mg/dl (0-1.1); BILIRUBIN,TOTAL 0.3 mg/dl (0.2-1.3); CALCIUM 9.1 mg/dl (8.4-10.2); CREATININE 0.74 mg/dl (0.44-1.00); POTASSIUM 3.9 mmol/L (3.5-5.1); TOTAL PROTEIN 7.5 g/dl (6.1-8.1)
[2016-12-30] MEDS: ACYCLOVIR 200 MG CAP PO SCH ×3 (08:32→22:21)
--- NOTE | 2016-12-30 12:24 | PN ---
DATE: 12/30/2016 HOSPITALIST PROGRESS NOTE TIME OF EVALUATION: 11 a.m. SUBJECTIVE DATA: Reported paroxysmal atrial fibrillation last night. Also, reported dizziness upon getting out of bed. OBJECTIVE DATA: VITAL SIGNS: Temperature 97.7, pulse is 70, respiratory rate 18, blood pressure 122/63, oxygen saturation 96% on room air. GENERAL: This is a slightly overweight female lying in bed in no apparent distress. HEENT: Head normocephalic and atraumatic. Eyes: Anicteric sclerae. Conjunctivae clear. ENT: Nasal septum is midline. Oral mucosa is dry. NECK: Supple. No JVD noticed. RESPIRATORY: Bilaterally clear to auscultation. No adventitious breath sounds heard. No use of accessory muscles of respiration. CARDIAC: Irregularly irregular rhythm. No murmurs. ABDOMEN: Soft, nontender, and nondistended. Bowel sounds positive in all 4 quadrants. INTEGUMENTARY: There is a small papular lesion in left vulvar area. EXTREMITIES: No cyanosis, no clubbing, no edema. Peripheral pulses palpable. NEUROLOGIC: The patient is awake, alert, and oriented. Cranial nerves are grossly intact. LABORATORY AND DIAGNOSTIC DATA: WBC 6.8, hemoglobin 13.6, hematocrit 40.1, platelet count 302. Sodium 130, potassium 3.9, chloride 109, carbon dioxide 25 , anion gap 9, BUN 15, creatinine 0.74, glucose 96, calcium 9.1, magnesium 2.0. ASSESSMENT AND PLAN: 1. Paroxysmal atrial fibrillation with frequent pauses. The patient is scheduled for a pacemaker. 2. Paroxysmal atrial fibrillation. Being followed by cardiology. The patient' s therapeutic anticoagulation has been put on hold for a pacemaker placement. 3. Essentially hypertension. Blood pressure well controlled. 4. Possible herpes simplex infection. The patient on acyclovir. Herpes simplex antibody results pending. 5. Fluid, electrolytes, and nutrition. Low cholesterol diet. Currently n.p.o. for a pacemaker placement. 6. Deep venous thrombosis prophylaxis. Bilateral sequential compression devices. 7. Gastrointestinal prophylaxis. Proton pump inhibitors. 8. Continue inpatient monitoring. Await a pacemaker placement. The case was discussed with Dr. Stewart. JULIANNE STEWART MD, AM/ARACELI Conf#: [id number] DID#: [id number] [facility]
[2016-12-30] MEDS ORDERED: POLYMYXIN/BACITRACIN 1L IRRIG ONE (12:31)
[2016-12-30] MEDS ORDERED: LIDOCAINE 1% (MPF) 30 ML INJ ONE (12:31)
[2016-12-30] MEDS ORDERED: FENTAnyl 50 MCG/ML VIAL ONE (13:47)
[2016-12-30] MEDS ORDERED: PROPOFOL 20 ML ONE (13:47)
[2016-12-30] MEDS ORDERED: MIDAZOLAM 1 MG/ML 2 ML INJ ONE (13:47)
--- NOTE | 2016-12-30 13:54 | HPN ---
Date/Time of Note Date/Time of Note DATE: 12/30/16 TIME: 13:54 Interval H&P Admission Note Pt. seen H&P reviewed: No system changes PHILIPPE UPTON MD December 30, 2016 13:54
[2016-12-30] MEDS ORDERED: METOCLOPRAMIDE 10 MG INJ IV PRN (14:00)
[2016-12-30] MEDS ORDERED: MIDAZOLAM 1 MG/ML 2 ML INJ IV PRN (14:00)
[2016-12-30] MEDS ORDERED: LIDOCAINE 1% (MPF) 30 ML INJ INJ ONE (14:00)
[2016-12-30] MEDS ORDERED: ONDANSETRON 4 MG INJ IV PRN (14:00)
[2016-12-30] MEDS ORDERED: MEPERIDINE 25 MG INJ IV PRN (14:00)
[2016-12-30] MEDS ORDERED: DIPHENHYDRAMINE 50 MG INJ IV PRN (14:00)
[2016-12-30] MEDS ORDERED: FENTAnyl 50 MCG/ML VIAL IV PRN ×2 (14:00)
[2016-12-30] MEDS ORDERED: CEFAZOLIN 1 GM INJ ONE (14:15)
[2016-12-30] MEDS ORDERED: ONDANSETRON 4 MG INJ ONE (14:59)
[2016-12-30] MEDS ORDERED: ACETAMINOPHEN 325 MG TAB PO PRN (15:00)
[2016-12-30] MEDS: CEFAZOLIN 2 GM/50 ML (PMX) 50 ML IVPB SCH ×2 (15:00→22:21)
[2016-12-30] MEDS ORDERED: KETOROLAC 15 MG INJ IV PRN (15:00)
--- NOTE | 2016-12-30 15:42 | OPR ---
DATE OF OPERATION: 12/30/2016 PREOPERATIVE DIAGNOSIS: Sick sinus syndrome, atrial fibrillation with pauses. POST OPERATIVE DIAGNOSIS: Sick sinus syndrome, atrial fibrillation with pauses. PROCEDURE: Insertion of an MRI-compatible Medtronic DDDR permanent pacemaker. SURGEON: Nehemiah Last MD TYPE OF ANESTHESIA: 1% lidocaine with IV sedation. INDICATIONS: The patient is a 66-year-old female with history of AFib and pauses. She needs pacemak er for managing her atrial fibrillation. Benefits, risks and alternatives were explained. She under stood and consented. FINDINGS: A Medtronic generator was implanted. The atrial lead model number is [id number], serial numbe r [id number]. The ventricular lead model number is 4074 and the serial numbers [id number]. PROCEDURE: The patient brought to the operating room, was placed in supine position. She was given IV sedation, she was prepped and draped in usual sterile fashion. 1% lidocaine was in jected, a needle was then inserted into the subclavian vein. Blood was aspirated, wire was guided t hrough the needle under fluoroscopy. An incision was made and carried down to the fascia and sub fa scia pocket was created, we then placed the dilator and sheath over the wire. The wire was retained . The dilator was removed and replaced ventricular leads in the right ventricle and positioned it a nd obtained an R wave of 14.8 with an impedance of 1388 with a threshold of 0.6. We then placed a d ilated sheath over the wire and the dilator and the wire were removed. The atrial lead was placed i nto the sheath. The sheath was removed. The atrial lead was positioned in the right atrium and we o btained a threshold of 1.2 with an impedance of 772 ohms and P-wave of 6.3. Both leads were secured to the fascia using 2-0 Ethibond. The leads were then connected to the generator, secured using a t orque wrench. We then placed a generator into the pocket. The pocket was then closed using 3-0 Vicr yl for the deep layer and 4-0 Monocryl for the skin. Dermabond was placed over that. The patient t olerated the procedure and was taken back to the recovery room in stable condition. Dictated By: NEHEMIAH PRO/ARACELI Conf#: [id number] [facility]#: [id number]
--- NOTE | 2016-12-30 15:43 | RADRPT ---
PROCEDURE: XR Chest. CLINICAL INDICATION: Rule out pneumothorax following pacemaker placement. TECHNIQUE: Single frontal view of the chest was obtained. COMPARISON: Chest x-ray 10/25/2016. FINDINGS: The soft tissues are normal. There are degenerative osteophytes in the thoracic spine. The left ve ntricle is mildly enlarged. The cardiomediastinal silhouette and hilar structures are normal. The p ulmonary vasculature is upper limits of normal. There are vascular calcifications in the aortic arc h. There is plate-like atelectasis in the right lower lung field. There are linear densities projec ting to the left heart border this could be the result of scarring or atelectasis. These are unchan ged. There is a dual chamber cardiac pacemaker over the left chest wall. No pneumothorax is identi fied. IMPRESSION: 1. No pneumothorax is identified following placement of a dual chamber cardiac pacemaker implanted o katherine the upper lateral left chest wall. 2. Subsegmental atelectasis in the right lower lung field. 3. Linear densities project to the left heart border and could be the result of atelectasis or pare nchymal scarring. RPTAT:AAJJ Physician Yelitza Date Time Electronically viewed and signed by Physician Yelitza on 12/30/2016 15:43 RONAK/
[2016-12-30] MEDS: HYDROCODONE/APAP (5/325) TAB PO PRN (16:42)
--- NOTE | 2016-12-30 16:58 | RADRPT ---
PROCEDURE: Pacemaker placement with AP views of the left chest. CLINICAL INDICATION: Pacemaker placement. TECHNIQUE: AP cone down views of the left side of the chest were performed. COMPARISON: No. FINDINGS: Fluoro time: 107.5 seconds mGy: 0.67 Electrode leads are identified in place projecting at the level of the right atrium and right ventri jamee. The left ventricle is enlarged. There are coiled radiopaque markers in the area of the left a xilla. IMPRESSION: 1. Status post placement of a cardiac pacer wires projecting at the level of the right atrium and r ight ventricle. 2. A total of 2 radiographs were performed. RPTAT:AAJJ Physician Yelitza Date Time Electronically viewed and signed by Physician Yelitza on 12/30/2016 16:58 RONAK/
[2016-12-30] MEDS: ONDANSETRON 4 MG INJ IV PRN (18:27)
[2016-12-31] VITALS (12 sets, daily range): BP systolic 119–146; BP diastolic 50–70; PULSE 73–93; RESP 16–18
[2016-12-31] MEDS: PANTOPRAZOLE (EC) 40 MG TAB PO SCH (06:18)
[2016-12-31] MEDS: CEFAZOLIN 2 GM/50 ML (PMX) 50 ML IVPB SCH (06:21)
[2016-12-31 07:41] LABS: ADD SCAN DIFF NO
[2016-12-31 07:50] LABS: BASOPHILS % 0.4 % (0.0-2.0); EOSINOPHILS # 0.1 10^3/ul (0.0-0.5); EOSINOPHILS % 1.9 % (0.0-7.0); HEMATOCRIT 38.5 % (37.0-47.0); LYMPHOCYTES # 2.6 10^3/ul (0.8-2.9); MEAN CORPUSCULAR HEMOGLOBIN 30.7 pg (29.0-33.0); MEAN CORPUSCULAR HGB CONC 33.8 g/dl (32.0-37.0); MEAN PLATELET VOLUME 9.3 fl (7.4-10.4); MONOCYTE # 0.7 10^3/ul (0.3-0.9); MONOCYTES % 9.6 % (0.0-11.0); NEUTROPHIL # 3.9 10^3/ul (1.6-7.5); NEUTROPHILS % 53.1 % (39.0-77.0); PLATELET COUNT 268 10^3/UL (140-415); RED BLOOD COUNT 4.23 10^6/ul (4.20-5.40); RED CELL DISTRIBUTION WIDTH 12.1 % (11.5-14.5); WHITE BLOOD COUNT 7.4 10^3/ul (4.8-10.8)
[2016-12-31 08:08] LABS: CALCIUM 8.8 mg/dl (8.4-10.2); CREATININE 0.81 mg/dl (0.44-1.00); POTASSIUM 3.9 mmol/L (3.5-5.1)
[2016-12-31 08:12] LABS: PHOSPHORUS 4.1 mg/dl (2.5-4.9)
[2016-12-31] MEDS: ACYCLOVIR 200 MG CAP PO SCH ×3 (08:39→20:29)
--- NOTE | 2016-12-31 11:08 | PN ---
Date/Time of Note Date/Time of Note DATE: 12/31/16 TIME: 11:08 Assessment/Plan VTE Prophylaxis VTE Prophylaxis Intervention: SCD's Lines/Catheters [facility] Saline Lock Urinary Cath still in place: No Assessment/Plan Chief Complaint/Hosp Course 1. Paroxysmal atrial fibrillation with frequent pauses. The patient is status post pacemaker. 2. Paroxysmal atrial fibrillation. Being followed by cardiology. The patient' s therapeutic anticoagulation has been put on hold for a pacemaker placement. 3. Essentially hypertension. Blood pressure well controlled. 4. Possible herpes simplex infection. The patient on acyclovir. Herpes simplex antibody results pending. Will involve infectious diseases on the case. 5. Fluid, electrolytes, and nutrition. Low-sodium, low cholesterol diet. 6. Deep venous thrombosis prophylaxis. Bilateral sequential compression devices. 7. Gastrointestinal prophylaxis. Proton pump inhibitors. 8. Plan. Continue inpatient monitoring. Await clearance from cardiology before discharge. Will involve infectious disease on the case to further evaluate the lesion in the vulva. The case was discussed with Dr. Singer. Problems: Subjective 24 Hr Interval Summary Free Text/Dictation Denies any chest pain or dizziness. Denies any incisional pain. Exam/Review of Systems Vital Signs Vitals Vital Signs Date Time Temp Pulse Resp B/P Pulse Ox O2 Delivery O2 Flow Rate FiO2 12/31/16 08:20 73 12/31/16 07:45 97.9 18 123/50 97 12/30/16 16:42 Room Air 12/30/16 16:08 2.0 Intake and Output 12/30/16 12/30/16 12/31/16 15:00 23:00 07:00 Intake Total 300 ml 270 ml 110 ml Output Total 5 ml 250 ml 300 ml Balance 295 ml 20 ml -190 ml Exam GENERAL: This is a slightly overweight female lying in bed in no apparent distress. HEENT: Head normocephalic and atraumatic. Eyes: Anicteric sclerae. Conjunctivae clear. ENT: Nasal septum is midline. Oral mucosa is dry. NECK: Supple. No JVD noticed. RESPIRATORY: Bilaterally clear to auscultation. No adventitious breath sounds heard. No use of accessory muscles of respiration. CARDIAC: Irregularly irregular rhythm. No murmurs. Left chest wall incision site clean and dry. ABDOMEN: Soft, nontender, and nondistended. Bowel sounds positive in all 4 quadrants. INTEGUMENTARY: There is a small papular lesion in left vulvar area. EXTREMITIES: No cyanosis, no clubbing, no edema. Peripheral pulses palpable. NEUROLOGIC: The patient is awake, alert, and oriented. Cranial nerves are grossly intact. Results Result Diagram: 12/31/16 0715 12/31/16 0715 Results 24 hrs Laboratory Tests Test 12/31/16 07:15 White Blood Count 7.4 Red Blood Count 4.23 Hemoglobin 13.0 Hematocrit 38.5 Mean Corpuscular Volume 91.0 Mean Corpuscular Hemoglobin 30.7 Mean Corpuscular Hemoglobin Concent 33.8 Red Cell Distribution Width 12.1 Platelet Count 268 Mean Platelet Volume 9.3 Neutrophils % 53.1 Lymphocytes % 35.0 Monocytes % 9.6 Eosinophils % 1.9 Basophils % 0.4 Nucleated Red Blood Cells % 0.0 Neutrophils # 3.9 Lymphocytes # 2.6 Monocytes # 0.7 Eosinophils # 0.1 Basophils # 0.0 Nucleated Red Blood Cells # 0.0 Sodium Level 137 Potassium Level 3.9 Chloride Level 107 Carbon Dioxide Level 24 Anion Gap 10 Blood Urea Nitrogen 18 Creatinine 0.81 Glucose Level 87 Calcium Level 8.8 Phosphorus Level 4.1 Magnesium Level 2.0 Medications Medications Current Medications Lorazepam (Ativan) 0.5 mg Q6H PRN IV ANXIETY; Start 12/29/16 at 03:30 Ondansetron HCl (Zofran Inj) 4 mg Q6H PRN IV NAUSEA AND/OR VOMITING Last administered on 12/30/16 18:27; Admin Dose 4 MG; Start 12/29/16 at 03:30 Nitroglycerin (Nitroglycerin (Sl Tab) 0.4 Mg) 1 tab Q5M PRN SL CHEST PAIN; Start 12/29/16 at 03:30 Acetaminophen (Tylenol Tab) 650 mg Q6H PRN PO PAIN LEVEL 1-3 OR FEVER; Start at 03:30 Docusate Sodium (Colace) 100 mg Q12H PRN PO CONSTIPATION Last administered on 06:18; Admin Dose 100 MG; Start 12/29/16 at 03:30 Bisacodyl (Dulcolax) 5 mg DAILY PRN PO CONSTIPATION Last administered on 06:18; Admin Dose 5 MG; Start 12/29/16 at 03:30 Pantoprazole (Protonix Tab) 40 mg DAILY@06 PO Last administered on 12/31/16 06: 18; Admin Dose 40 MG; Start 12/29/16 at 06:00 Acyclovir 200 mg 200 mg TID PO Last administered on 12/31/16 08:39; Admin Dose 200 MG; Start 12/29/16 at 21:00 Cefazolin Sodium/ Dextrose (Ancef 2 Gm/50 ml (Pmx)) 50 ml @ 100 mls/hr Q8H IVPB Last administered on 12/31/16 06:21; Admin Dose 100 MLS/HR; Start at 15:00; Stop 12/31/16 at 14:59 Acetaminophen/ Hydrocodone Bitart ([place] (5/325)) 1 tab Q6H PRN PO PAIN LEVEL 6 -10 Last administered on 12/30/16 16:42; Admin Dose 1 TAB; Start 12/30/16 at 15 :00 Ketorolac Tromethamine (Toradol) 15 mg Q6H PRN IV PAIN Last administered on 22:43; Admin Dose 15 MG; Start 12/30/16 at 15:00; Stop 01/02/17 at 14:59 JULIANNE YANG NP Dec 31, 2016 11:08
[2016-12-31] MEDS: ONDANSETRON 4 MG INJ IV PRN (12:44)
[2017-01-01] VITALS (11 sets, daily range): BP systolic 108–129; BP diastolic 51–77; PULSE 66–87; RESP 16–19
[2017-01-01] MEDS: PANTOPRAZOLE (EC) 40 MG TAB PO SCH (05:15)
[2017-01-01] MEDS: HYDROCODONE/APAP (5/325) TAB PO PRN (05:15)
--- NOTE | 2017-01-01 06:53 | CONS ---
DATE OF ADMISSION: 12/29/2016 DATE OF CONSULTATION: 12/31/2016 TYPE OF CONSULTATION: Infectious Disease. REASON FOR CONSULTATION: Antibiotic management. HISTORY OF PRESENT ILLNESS: Verena Wells is a very pleasant 56-year-old female who comes in for palpitations and is being seen presently for vesicles in the genital area, actually on the m ons veneris. Her past problems include: 1. Cardiac pause/palpitations. She has a history of palpitations from previous visit, was started on flecainide. Upon admission, she was noted to have a 3-second pause on telemetry. She stated luis t since her discharge, she has continued to have palpitations. Cardiology was consulted and will ho ld the flecainide for now. She has coronary artery disease, hypertension, GERD, history of erosive esophagitis. She had been on atenolol because of cardiac pauses before she was placed on flecainide . HOSPITAL COURSE: The patient developed 3 vesicles on the vulvar area and was started on acyclovir izabella Hung. She had to herpes simplex 1 and 2 antibodies that were ordered but actually herpes zoster was not ordered and that is also a possibility. The patient has not been sexually active for 11 years since her divorce. PAST MEDICAL HISTORY: Operations as outlined. FAMILY HISTORY: Noncontributory. SOCIAL HISTORY: She does not smoke, drink or abuse drugs. ALLERGIES: NONE TO PENICILLIN, SULFA OR FOODS. MEDICATIONS: Per chart. PAST SURGICAL HISTORY: Status post stent, PCI, status post cholecystectomy, status post hernia repa ir and today she had a pacemaker placement. This was done by Dr. Last. PHYSICAL EXAMINATION: GENERAL: The patient is a well-developed, well-nourished female who is alert, responsive, in no acu te distress. VITAL SIGNS: Stable. She is afebrile. SKIN: Without generalized rash. HEENT: Within normal limits. NECK: Supple. LYMPH NODES: None palpable. CHEST: Decreased breath sounds at the bases. HEART: Without murmur or gallop. ABDOMEN: Soft, nontender, without organosplenomegaly or masses. EXTREMITIES: Without cyanosis, clubbing, or edema. GENITAL EXAM: She has 3 pustules on the left side of the mons veneris. NEUROLOGIC: No focal neurological abnormalities. ANCILLARY LABORATORY DATA: Her white count currently is 7.4, H and H of 13 and 38.5, platelet count of 268,000. BUN and creatinine are 18/0.81. IMPRESSION AND PLAN: We are going to do herpes zoster IgG and IgM, and also I am going to chart a c ulture of the vesicles for bacteria and also for virus. Dictated By: JESI RITCHIE MD, JD/ARACELI Conf#: [id number] DID#: [id number]
[2017-01-01 08:03] LABS: ADD SCAN DIFF NO
--- NOTE | 2017-01-01 08:05 | CONS ---
Date/Time of Note Date/Time of Note DATE: 01/01/17 TIME: 08:03 Assessment/Plan Assessment/Plan Chief Complaint/Hosp Course 1) PAF 2) SSS 3) PPM in situ (medtronic) Problems: Additional Assessment/Plan 1) restart atenolol 2) will consider flecainide though has excentric MR 3) Eliquis restart in next few days Consultation Date/Type/Reason Admit Date/Time December 29, 2016 at 01:33 Initial Consult Date Type of Consultation: cv 24 HR Interval Summary Free Text/Dictation resting, no chest pain, no sob, no palpitations Detailed Summary Respiratory: no complaints Cardiovascular: no complaints Gastrointestinal: no complaints Musculoskeletal: no complaints Neurologic: no complaints Exam/Review of Systems Vital Signs Vitals Vital Signs Date Time Temp Pulse Resp B/P Pulse Ox O2 Delivery O2 Flow Rate FiO2 01/01/17 07:45 98.1 77 18 125/77 98 01/01/17 05:05 Room Air 12/30/16 16:08 2.0 Intake and Output 12/31/16 12/31/16 01/01/17 15:00 23:00 07:00 Intake Total 720 ml Balance 720 ml Exam Constitutional: well developed Head: atraumatic, normocephalic Neck: supple Respiratory: clear to auscultation Cardiovascular: regular rate and rhythm Gastrointestinal: soft Musculoskeletal: nl extremities to inspection Extremities: normal pulses Results Result Diagram: 12/31/16 0715 12/31/16 0715 Medications Medications Current Medications Lorazepam (Ativan) 0.5 mg Q6H PRN IV ANXIETY; Start 12/29/16 at 03:30 Ondansetron HCl (Zofran Inj) 4 mg Q6H PRN IV NAUSEA AND/OR VOMITING Last administered on 12/31/16 12:44; Admin Dose 4 MG; Start 12/29/16 at 03:30 Nitroglycerin (Nitroglycerin (Sl Tab) 0.4 Mg) 1 tab Q5M PRN SL CHEST PAIN; Start 12/29/16 at 03:30 Acetaminophen (Tylenol Tab) 650 mg Q6H PRN PO PAIN LEVEL 1-3 OR FEVER; Start at 03:30 Docusate Sodium (Colace) 100 mg Q12H PRN PO CONSTIPATION Last administered on 06:18; Admin Dose 100 MG; Start 12/29/16 at 03:30 Bisacodyl (Dulcolax) 5 mg DAILY PRN PO CONSTIPATION Last administered on 06:18; Admin Dose 5 MG; Start 12/29/16 at 03:30 Pantoprazole (Protonix Tab) 40 mg DAILY@06 PO Last administered on 01/01/17 05: 15; Admin Dose 40 MG; Start 12/29/16 at 06:00 Acyclovir (Zovirax) 200 mg TID PO Last administered on 12/31/16 20:29; Admin Dose 200 MG; Start 12/29/16 at 21:00 Acetaminophen/ Hydrocodone Bitart ([place] (5/325)) 1 tab Q6H PRN PO PAIN LEVEL 6 -10 Last administered on 01/01/17 05:15; Admin Dose 1 TAB; Start 12/30/16 at 15: 00 Ketorolac Tromethamine (Toradol) 15 mg Q6H PRN IV PAIN Last administered on 22:43; Admin Dose 15 MG; Start 12/30/16 at 15:00; Stop 01/02/17 at 14:59 EMMANUEL NOYOLA MD Jan 01, 2017 08:05
[2017-01-01 08:18] LABS: BASOPHILS % 0.4 % (0.0-2.0); EOSINOPHILS # 0.1 10^3/ul (0.0-0.5); EOSINOPHILS % 1.7 % (0.0-7.0); HEMATOCRIT 39.1 % (37.0-47.0); HEMOGLOBIN 13.1 g/dl (12.0-16.0); LYMPHOCYTES # 2.6 10^3/ul (0.8-2.9); LYMPHOCYTES % 31.6 % (15.0-51.0); MEAN CORPUSCULAR HEMOGLOBIN 30.4 pg (29.0-33.0); MEAN CORPUSCULAR HGB CONC 33.5 g/dl (32.0-37.0); MEAN CORPUSCULAR VOLUME 90.7 fl (82.0-101.0); MEAN PLATELET VOLUME 9.5 fl (7.4-10.4); MONOCYTE # 0.7 10^3/ul (0.3-0.9); MONOCYTES % 8.4 % (0.0-11.0); NEUTROPHIL # 4.7 10^3/ul (1.6-7.5); NEUTROPHILS % 57.7 % (39.0-77.0); PLATELET COUNT 266 10^3/UL (140-415); RED BLOOD COUNT 4.31 10^6/ul (4.20-5.40); RED CELL DISTRIBUTION WIDTH 12.2 % (11.5-14.5); WHITE BLOOD COUNT 8.1 10^3/ul (4.8-10.8)
[2017-01-01 08:25] LABS: PHOSPHORUS 3.5 mg/dl (2.5-4.9)
[2017-01-01 08:33] LABS: CALCIUM 8.9 mg/dl (8.4-10.2); CREATININE 0.78 mg/dl (0.44-1.00)
[2017-01-01] MEDS: ACYCLOVIR 200 MG CAP PO SCH ×3 (09:32→22:22)
[2017-01-01] MEDS: ATENOLOL 25 MG TAB PO SCH ×2 (09:33→22:22)
--- NOTE | 2017-01-01 14:40 | PN ---
DATE: 01/01/2017 SUBJECTIVE: Patient is alert, feels good. Denies pain, discomfort, no fevers, no nausea, vomiting, diarrhea. LABORATORY DATA: WBC 8.1, no shift, no bands. BUN 16, creatinine 0.78. ANTIMICROBIALS: Acyclovir. PHYSICAL EXAMINATION: GENERAL: Well-developed, elderly woman who is alert, in no distress. HEENT: Atraumatic, normocephalic. Sclerae anicteric. Buccal mucosa pink. NECK: Supple. CHEST: Rise symmetrical. LUNGS: Clear. HEART: S1, S2. ABDOMEN: Soft, bowel tones present. EXTREMITIES: Without cyanosis. ASSESSMENT: 1. Vaginal lesions, questionable herpetic, remains on acyclovir. 2. Coronary artery disease. PLAN: The patient remains stable. Pending serology for herpes zoster IgG and IgM. Continue acyclo vir. Dictated By: BEN CARL SENIOR TECHNICAL SUPPORT ENGINEER for JESI VAZ/ARACELI Conf#: [id number] DID#: [id number]
--- NOTE | 2017-01-01 15:45 | PN ---
Date/Time of Note Date/Time of Note DATE: 01/01/17 TIME: 15:43 Assessment/Plan VTE Prophylaxis VTE Prophylaxis Intervention: SCD's Lines/Catheters [facility] Saline Lock Urinary Cath still in place: No Assessment/Plan Chief Complaint/Hosp Course 1. Paroxysmal atrial fibrillation with frequent pauses. The patient is status post pacemaker. 2. Paroxysmal atrial fibrillation. Being followed by cardiology. The patient' s therapeutic anticoagulation has been put on hold because of recent pacemaker placement. 3. Essentially hypertension. Blood pressure well controlled. 4. Possible herpes simplex infection. The patient on acyclovir. Herpes simplex antibody results pending. Infectious diseases on the case. 5. Fluid, electrolytes, and nutrition. Low-sodium, low cholesterol diet. 6. Deep venous thrombosis prophylaxis. Bilateral sequential compression devices. 7. Gastrointestinal prophylaxis. Proton pump inhibitors. 8. Plan. Continue inpatient monitoring. Await clearance from cardiology before discharge. The case was discussed with Dr. Singer. Problems: Subjective 24 Hr Interval Summary Free Text/Dictation Denies any complaints. Remains in SR. Exam/Review of Systems Vital Signs Vitals Vital Signs Date Time Temp Pulse Resp B/P Pulse Ox O2 Delivery O2 Flow Rate FiO2 01/01/17 15:21 98.3 62 16 116/58 98 01/01/17 05:05 Room Air 12/30/16 16:08 2.0 Intake and Output 12/31/16 12/31/16 01/01/17 15:00 23:00 07:00 Intake Total 720 ml Balance 720 ml Exam GENERAL: This is a slightly overweight female lying in bed in no apparent distress. HEENT: Head normocephalic and atraumatic. Eyes: Anicteric sclerae. Conjunctivae clear. ENT: Nasal septum is midline. Oral mucosa is dry. NECK: Supple. No JVD noticed. RESPIRATORY: Bilaterally clear to auscultation. No adventitious breath sounds heard. No use of accessory muscles of respiration. CARDIAC: Regular rate and rhythm. No murmurs. Left chest wall incision site clean and dry. ABDOMEN: Soft, nontender, and nondistended. Bowel sounds positive in all 4 quadrants. INTEGUMENTARY: There is a small papular lesion in left vulvar area. EXTREMITIES: No cyanosis, no clubbing, no edema. Peripheral pulses palpable. NEUROLOGIC: The patient is awake, alert, and oriented. Cranial nerves are grossly intact. Results Result Diagram: 01/01/17 0708 01/01/17 0708 Results 24 hrs Laboratory Tests Test 01/01/17 07:08 White Blood Count 8.1 Red Blood Count 4.31 Hemoglobin 13.1 Hematocrit 39.1 Mean Corpuscular Volume 90.7 Mean Corpuscular Hemoglobin 30.4 Mean Corpuscular Hemoglobin Concent 33.5 Red Cell Distribution Width 12.2 Platelet Count 266 Mean Platelet Volume 9.5 Neutrophils % 57.7 Lymphocytes % 31.6 Monocytes % 8.4 Eosinophils % 1.7 Basophils % 0.4 Nucleated Red Blood Cells % 0.0 Neutrophils # 4.7 Lymphocytes # 2.6 Monocytes # 0.7 Eosinophils # 0.1 Basophils # 0.0 Nucleated Red Blood Cells # 0.0 Sodium Level 141 Potassium Level 4.0 Chloride Level 107 Carbon Dioxide Level 25 Anion Gap 13 Blood Urea Nitrogen 16 Creatinine 0.78 Glucose Level 95 Calcium Level 8.9 Phosphorus Level 3.5 Magnesium Level 2.0 Medications Medications Current Medications Lorazepam (Ativan) 0.5 mg Q6H PRN IV ANXIETY; Start 12/29/16 at 03:30 Ondansetron HCl (Zofran Inj) 4 mg Q6H PRN IV NAUSEA AND/OR VOMITING Last administered on 12/31/16 12:44; Admin Dose 4 MG; Start 12/29/16 at 03:30 Nitroglycerin (Nitroglycerin (Sl Tab) 0.4 Mg) 1 tab Q5M PRN SL CHEST PAIN; Start 12/29/16 at 03:30 Acetaminophen (Tylenol Tab) 650 mg Q6H PRN PO PAIN LEVEL 1-3 OR FEVER; Start at 03:30 Docusate Sodium (Colace) 100 mg Q12H PRN PO CONSTIPATION Last administered on 06:18; Admin Dose 100 MG; Start 12/29/16 at 03:30 Bisacodyl (Dulcolax) 5 mg DAILY PRN PO CONSTIPATION Last administered on 06:18; Admin Dose 5 MG; Start 12/29/16 at 03:30 Pantoprazole (Protonix Tab) 40 mg DAILY@06 PO Last administered on 01/01/17 05: 15; Admin Dose 40 MG; Start 12/29/16 at 06:00 Acyclovir (Zovirax) 200 mg TID PO Last administered on 01/01/17 09:32; Admin Dose 200 MG; Start 12/29/16 at 21:00 Acetaminophen/ Hydrocodone Bitart ([place] (5/325)) 1 tab Q6H PRN PO PAIN LEVEL 6 -10 Last administered on 01/01/17 05:15; Admin Dose 1 TAB; Start 12/30/16 at 15: 00 Ketorolac Tromethamine (Toradol) 15 mg Q6H PRN IV PAIN Last administered on 22:43; Admin Dose 15 MG; Start 12/30/16 at 15:00; Stop 01/02/17 at 14:59 Atenolol (Tenormin) 25 mg BID PO Last administered on 01/01/17 09:33; Admin Dose 25 MG; Start 01/01/17 at 09:00 JULIANNE YANG NP Jan 01, 2017 15:45
[2017-01-01] MEDS ORDERED: LORAZEPAM 0.5 MG TAB PO PRN (16:00)
[2017-01-02] VITALS (8 sets, daily range): BP systolic 101–129; BP diastolic 49–60; PULSE 62–73; RESP 17–19
[2017-01-02] MEDS: PANTOPRAZOLE (EC) 40 MG TAB PO SCH (06:04)
[2017-01-02 08:15] LABS: ADD SCAN DIFF NO
[2017-01-02 08:20] LABS: BASOPHILS % 0.5 % (0.0-2.0); EOSINOPHILS # 0.2 10^3/ul (0.0-0.5); EOSINOPHILS % 2.2 % (0.0-7.0); HEMATOCRIT 38.6 % (37.0-47.0); LYMPHOCYTES % 36.7 % (15.0-51.0); MEAN CORPUSCULAR HEMOGLOBIN 30.7 pg (29.0-33.0); MEAN CORPUSCULAR HGB CONC 33.7 g/dl (32.0-37.0); MEAN PLATELET VOLUME 9.6 fl (7.4-10.4); MONOCYTE # 0.8 10^3/ul (0.3-0.9); MONOCYTES % 9.8 % (0.0-11.0); NEUTROPHIL # 4.1 10^3/ul (1.6-7.5); NEUTROPHILS % 50.6 % (39.0-77.0); PLATELET COUNT 260 10^3/UL (140-415); RED BLOOD COUNT 4.24 10^6/ul (4.20-5.40); RED CELL DISTRIBUTION WIDTH 12.4 % (11.5-14.5); WHITE BLOOD COUNT 8.2 10^3/ul (4.8-10.8)
[2017-01-02 08:48] LABS: MAGNESIUM 1.9 mg/dl (1.7-2.5); PHOSPHORUS 3.2 mg/dl (2.5-4.9)
[2017-01-02 08:49] LABS: CREATININE 0.72 mg/dl (0.44-1.00); POTASSIUM 4.5 mmol/L (3.5-5.1)
[2017-01-02] MEDS: ATENOLOL 25 MG TAB PO SCH (08:59)
[2017-01-02] MEDS: ACYCLOVIR 200 MG CAP PO SCH ×2 (08:59→13:00)
--- NOTE | 2017-01-02 12:54 | PDOCDIS ---
Discharge Instructions DIAGNOSIS Discharge Diagnosis: Atrial fibrillation. Symptomatic bradycardia. Status post pacemaker. CONDITION Patient Condition: Stable HOME CARE INSTRUCTIONS: Special Diet: 2 GM NA FOLLOW UP/APPOINTMENTS Appointments 1. Herber Bagley MD Specialty: Cardiology Office Address: [address] [place] [address] Office 2. Nehemiah Last MD Specialty: Cardiothoracic Surgery Office Address: [address] [address] Office OTHER ORDERS: Other Orders: 1. Take medications as per prescription. Start taking Eliquis from 01/04/2017. 2. Take a low-sodium diet. 3. Resume activities as tolerated. 4. Follow-up with cardiology [Dr. Bagley] in 1 week. Follow-up with in 1 week. 5. Avoid tub baths until instructed by cardiology. Pat dry the incision area and use mild soap. JULIANNE YANG NP Jan 02, 2017 12:54
[2017-01-02] MEDS ORDERED: ATEN-51 PO (12:56)
[2017-01-02] MEDS ORDERED: ACYC200C2 PO (12:56)
--- NOTE | 2017-01-02 21:30 | DS ---
DATE OF ADMISSION: 12/29/2016 DATE OF DISCHARGE: 01/02/2017 FINAL DIAGNOSES: 1. Paroxysmal atrial fibrillation with frequent pauses. 2. Paroxysmal atrial fibrillation. 3. Essential hypertension. 4. Possible genital herpes infection. CONSULTANTS: 1. Dr. Herber Bagley, Cardiology. 2. Dr. Sai Esposito, Cardiology. 3. Dr. Nehemiah Last, Cardiothoracic Surgery. 4. Dr. Zaire Maldonado, Infectious Disease. HOSPITAL COURSE: This is a 66-year-old female with past medical history of essential hypertension and atrial fibrillation, who is on flecainide and Eliquis , who came to the emergency room with a chief complaint of intermittent palpitations. She denied any syncope, near syncope, neck pain, chest pain, dyspnea, abdominal pain, vomiting, or dysuria. The patient was noticed to have frequent pauses on cardiac rhythm with up to 3 second pause on the telemetry rhythm. Provided the patient's history of present illness, the comorbidities and the diagnostic findings, a clinical decision was made to admit the patient to inpatient setting. The patient was admitted to inpatient telemetry floor. The patient's flecainide was discontinued. The patient was placed on bed rest. Cardiology consult was obtained. Cardiology saw and evaluated the patient, and cardiology recommended permanent pacemaker insertion for her frequent pauses. The patient had an MRI compatible Medtronic DDR permanent pacemaker placed on 12/30/[address] Last. Before the procedure, the patient's Eliquis was discontinued. Post- procedure, the patient's Eliquis was put on hold. The patient's Eliquis will be resumed on 01/04/2017. Post-procedure, the patient was started on atenolol. The patient has underlying history of essential hypertension. The patient's blood pressure was well controlled throughout the patient's hospital course except a few episodes of high blood pressure during the day of admission. The patient was also noticed to have labial lesion that looked like herpes simplex. Hence, the patient was started on acyclovir. 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 Infectious disease was following the patient because of this finding of labial lesions. The patient is currently not sexually active. The patient denied any history of sexually transmitted diseases. 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 The patient was cleared by cardiology to be discharged home. The patient will be discharged home to be followed up with cardiology and the surgeon. DISCHARGE DISPOSITION/PLAN: The patient will be discharged home today. The patient was instructed to take medications as per prescription. The patient was instructed to hold taking flecainide and start taking atenolol. The patient is to start Eliquis from 01/04/2017. She was instructed to follow a low sodium diet. She was instructed to resume activities as tolerated. She was instructed not to take tub baths until cleared by cardiology and to pat dry the incisional area and use mild soap. She was instructed to follow up with her Dr. Bagley in 1 week and to follow up with Dr. Last in 1 week. The patient verbalized understanding of her discharge instructions. CONDITION AT DISCHARGE: Stable. DISCHARGE MEDICATIONS: 1. Acyclovir 200 mg p.o. t.i.d. 2. Atenolol 25 mg p.o. b.i.d. 3. Eliquis 5 mg p.o. b.i.d. 4. Omeprazole 20 mg p.o. daily. PERTINENT LABORATORIES, DIAGNOSTIC DATA AND PROCEDURES: 1. On 12/30/2016, MRI compatible Medtronic DDDR permanent pacemaker insertion. 2. Latest chest x-ray on 12/30/2016: Status post placement of cardiac pacer wires projecting at the level of the right atrium and right ventricle. 3. Latest CBC: WBC 8.2, hemoglobin 13.0, hematocrit 38.6, platelet count of 60 %. 4. Latest BMP: Sodium 140, potassium 4.5, chloride 107, carbon dioxide 26, anion gap 12, BUN 14, creatinine 0.7, glucose 90, calcium 9.0, phosphorus 3.0, magnesium 1.9. 5. Herpes simplex virus-2 IgG 19.80. Herpes simplex virus-1 IgG antibody 23.50. At this time, I would like to thank all the consultants for seeing the patient, doing the necessary procedures, and providing clinical recommendations. The case and management of this patient was fully discussed with Dr. Stewart. Approximately 35 minutes was spent on coordinating the discharge on this patient. JULIANNE STEWART MD, AM/ARACELI Conf#: [id number] [facility]#: [id number] MTDD
== END 2017-01-02 16:00 | disposition home or self-care (01) | DRG 243 ==
LOC: E/R 23:07 → MS4 12-29 01:33
PROVIDERS: ADMIT Family Medicine; ATTEND Family Medicine
PROC: 02H63JZ Insertion of Pacemaker Lead into Right Atrium, Percutaneous Approach (ICD-10-PCS; 2016-12-30)
PROC: 02HK3JZ Insertion of Pacemaker Lead into Right Ventricle, Percutaneous Approach (ICD-10-PCS; 2016-12-30)
PROC: 0JH606Z Insertion of Pacemaker, Dual Chamber into Chest Subcutaneous Tissue and Fascia, Open Approach (ICD-10-PCS; principal; 2016-12-30 13:00)
DX: I49.5 Sick sinus syndrome (principal); I50.30 Unspecified diastolic (congestive) heart failure; I48.0 Paroxysmal atrial fibrillation; I11.0 Hypertensive heart disease with heart failure; Z66 Do not resuscitate; I25.10 Atherosclerotic heart disease of native coronary artery without angina pectoris; Z95.5 Presence of coronary angioplasty implant and graft; Z87.891 Personal history of nicotine dependence; K21.9 Gastro-esophageal reflux disease without esophagitis; Z79.02 Long term (current) use of antithrombotics/antiplatelets; A60.09 Herpesviral infection of other urogenital tract
CPT/HCPCS: 36415; 71010; 80048; 80053; 82550; 82553; 83735; 84100; 84436; 84443; 84479; 84484; 85025; 85610; 85730; 86694; 87255; 93005; J0690; J1885; J2250; J2405; J3010; J7030

== ENCOUNTER 2017-01-18 08:46 | Emergency (ER) | payer OTHER ==
[~2017-01-18] VITALS: Ht 162.6 cm; Wt 74.0 kg
[~2017-01-18 08:46] MED LIST changes: +ACYC200C2 PO; +ATEN-51 PO; -FLEC50TA PO
[2017-01-18 08:51] VITALS: Ht 162.6 cm; Wt 74.0 kg
--- NOTE | 2017-01-18 10:15 | ERD ---
ER Documentation Chief Complaint Date/Time DATE: 01/18/17 TIME: 10:13 Chief Complaint SENT BY PCP FOR CT AFTER HERNIA REPAIR HPI Patient is a 66-year-old female who was told to come to the emergency department after having an ultrasound performed 3 days ago. At that time the patient had pain at the site of a prior inguinal hernia repair. She was told to come to the ER 3 days ago, but did not come until today. She does not know what the findings on the ultrasound were. The patient states that her pain is completely resolved since that time. She has not had any fever, vomiting, constipation. She does report dysuria since her recent surgery for pacemaker, during which time she had a urinary catheter. She denies back pain. The patient had a cholecystectomy and hernia repair in July by Dr. Sorensen, who saw the patient on Wednesday. ROS All systems reviewed and are negative except as per history of present illness. Medications Home Meds Active Scripts Cephalexin* (Cephalexin*) 500 Mg Capsule, 500 MG PO Q6, #28 CAP Prov:BREANN PAINTER MD 01/18/17 Acyclovir* (Acyclovir*) 200 Mg Capsule, 200 MG PO TID for 5 Days, CAP Prov:JULIANNE YANG NP 01/02/17 Atenolol* (Atenolol*) 25 Mg Tablet, 25 MG PO BID for 30 Days, TAB Prov:JLUIANNE YANG NP 01/02/17 Reported Medications Apixaban* (Eliquis*) 5 Mg Tablet, 5 MG PO BID, TAB 12/22/16 Omeprazole* (Omeprazole*) 20 Mg Capsule.dr 20 MG PO DAILY 07/26/15 Allergies Allergies: Coded Allergies: No Known Allergy (Unverified , 12/29/16) PMhx/Soc Past medical history: Atrial fibrillation, inguinal hernia Past surgical history: Cholecystectomy, inguinal hernia repair, pacemaker Social history: Ex-smoker, denies current tobacco or alcohol History of Surgery: Yes (hernia 2015) Anesthesia Reaction: No Hx Neurological Disorder: No Hx Respiratory Disorders: No Hx Cardiac Disorders: Yes (stents placed in 2008) Hx Psychiatric Problems: No Hx Miscellaneous Medical Probl: No Hx Alcohol Use: Yes (with dinner) Hx Substance Use: No Hx Tobacco Use: Yes Smoking Status: Former smoker FmHx Family History: No coronary disease, No diabetes Physical Exam Vitals Vital Signs Date Time Temp Pulse Resp B/P Pulse Ox O2 Delivery O2 Flow Rate FiO2 01/18/17 08:51 98.5 62 16 148/77 97 Physical Exam Const: Alert, no acute distress Head: Atraumatic Eyes: Normal Conjunctiva, no pallor, no icterus ENT: Normal External Ears, Nose and Mouth. Mucous membranes moist Neck: Full range of motion. No adenopathy Resp: Clear to auscultation bilaterally, no wheezes, no rales Cardio: Regular rate and rhythm, no murmurs Abd: Soft, non tender, non distended. Scar in right inguinal region without significant tenderness, fluctuance, mass. Skin: No petechiae or rashes Back: No midline or flank tenderness, no CVA tenderness Ext: No cyanosis, or edema Neur: Awake and alert, cranial nerves II through XII intact bilaterally, strength and sensation full in 4 extremities. Psych: Normal Mood and Affect Result Diagram: 01/18/17 1255 01/18/17 1255 Results 24 hrs Laboratory Tests Test 01/18/17 12:50 01/18/17 12:55 Urine Color LT. YELLOW Urine Clarity CLEAR Urine pH 6.0 Urine Specific [place] 1.015 Urine Ketones NEGATIVE Urine Nitrite NEGATIVE Urine Bilirubin NEGATIVE Urine Urobilinogen 0.2 E.U./dL Urine Leukocyte Esterase 1+ Urine Microscopic RBC NONE SEEN/HPF Urine Microscopic WBC 5-10/HPF Urine Squamous Epithelial Cells FEW Urine Hemoglobin NEGATIVE Urine Glucose NEGATIVE% Urine Total Protein NEGATIVE White Blood Count 7.410^3/ul Red Blood Count 4.4310^6/ul Hemoglobin 13.6g/dl Hematocrit 41.0% Mean Corpuscular Volume 92.6fl Mean Corpuscular Hemoglobin 30.7pg Mean Corpuscular Hemoglobin Concent 33.2g/dl Red Cell Distribution Width 12.0% Platelet Count 89323^3/UL Mean Platelet Volume 9.1fl Neutrophils % 42.6% Lymphocytes % 45.4% Monocytes % 8.2% Eosinophils % 2.6% Basophils % 1.1% Nucleated Red Blood Cells % 0.0/100WBC Neutrophils # 3.210^3/ul Lymphocytes # 3.410^3/ul Monocytes # 0.610^3/ul Eosinophils # 0.210^3/ul Basophils # 0.110^3/ul Nucleated Red Blood Cells # 0.010^3/ul Sodium Level 138mmol/L Potassium Level 3.8mmol/L Chloride Level 105mmol/L Carbon Dioxide Level 24mmol/L Anion Gap 13 Blood Urea Nitrogen 16mg/dl Creatinine 0.81mg/dl Glucose Level 82mg/dl Calcium Level 9.5mg/dl Current Medications Medications (Trade) Dose Ordered Sig/Bruce Route PRN Reason Start Time Stop Time Status Last Admin Dose Admin IV Flush 10 ml 10 ml STK-MED ONCE .ROUTE 01/18/17 13:45 01/18/17 13:46 DC Sodium Chloride (NS) 100 ml @ ud STK-MED ONCE .ROUTE 01/18/17 13:45 01/18/17 13:46 DC Iohexol (Omnipaque 300mg/ ml) 150 ml STK-MED ONCE .ROUTE 01/18/17 13:45 01/18/17 13:46 DC Procedures/MDM Time: 1231: I spoke with Dr. Sorensen, who states that Dr. Cobos saw the patient on Wednesday. A CT scan showed inflammatory changes around the appendix. Dr. Rodriguez requests that I obtain a CT scan of the abdomen and call Dr. Cobos with the results. MDM: Patient is a 66-year-old female who presents to the ER after being told to come to the ER for a CT scan 3 days ago. At that time, the patient had right lower quadrant pain and an ultrasound showing possible appendicitis. Since that time, the patient's symptoms have completely resolved. She has normal vital signs and labs, and CT is unremarkable. The patient does report dysuria since a recent surgery during which time she had a urinary catheter. There are 5-10 WBCs on her UA, so I will prescribe her a course of Keflex. A culture of the urine was sent. I attempted to contact Dr. Cobos, but he did not answer his phone. Given that the patient has reassuring workup, I have advised her to contact her surgeon's office tomorrow. Departure Diagnosis: Primary Impression: Abdominal pain Abdominal location: right lower quadrant Qualified Code: R10.31 - Right lower quadrant abdominal pain Additional Impression: Cystitis Condition: BREANN Renteria MD Jan 18, 2017 10:15
[2017-01-18 13:03] LABS: ADD SCAN DIFF NO
[2017-01-18 13:05] LABS: BASOPHIL # 0.1 10^3/ul (0.0-0.1); BASOPHILS % 1.1 % (0.0-2.0); EOSINOPHILS # 0.2 10^3/ul (0.0-0.5); EOSINOPHILS % 2.6 % (0.0-7.0); HEMOGLOBIN 13.6 g/dl (12.0-16.0); LYMPHOCYTES # 3.4 10^3/ul (0.8-2.9); LYMPHOCYTES % 45.4 % (15.0-51.0); MEAN CORPUSCULAR HEMOGLOBIN 30.7 pg (29.0-33.0); MEAN CORPUSCULAR HGB CONC 33.2 g/dl (32.0-37.0); MEAN CORPUSCULAR VOLUME 92.6 fl (82.0-101.0); MEAN PLATELET VOLUME 9.1 fl (7.4-10.4); MONOCYTE # 0.6 10^3/ul (0.3-0.9); MONOCYTES % 8.2 % (0.0-11.0); NEUTROPHIL # 3.2 10^3/ul (1.6-7.5); NEUTROPHILS % 42.6 % (39.0-77.0); PLATELET COUNT 320 10^3/UL (140-415); RED BLOOD COUNT 4.43 10^6/ul (4.20-5.40); WHITE BLOOD COUNT 7.4 10^3/ul (4.8-10.8)
[2017-01-18 13:09] LABS: ADD UMIC YES; UR BILIRUBIN (Dip) NEGATIVE (NEGATIVE); UR BLOOD (Dip) NEGATIVE (NEGATIVE); UR CLARITY CLEAR (CLEAR); UR COLOR LT. YELLOW (YELLOW); UR GLUCOSE (Dip) NEGATIVE (NEGATIVE); UR KETONES (Dip) NEGATIVE (NEGATIVE); UR LEUKOCYTE ESTERASE (Dip) 1+ (NEGATIVE); UR NITRITE (Dip) NEGATIVE (NEGATIVE); UR TOTAL PROTEIN (Dip) NEGATIVE (NEGATIVE); UR UROBILINOGEN (Dip) 0.2 E.U./dL (0.1-1.0)
[2017-01-18 13:27] LABS: CALCIUM 9.5 mg/dl (8.4-10.2); CREATININE 0.81 mg/dl (0.44-1.00); POTASSIUM 3.8 mmol/L (3.5-5.1)
[2017-01-18 13:30] LABS: UR SQUAMOUS EPITHELIAL CELL FEW; URINE RBCS NONE SEEN /HPF (0)
[2017-01-18] MEDS ORDERED: SOD CHLORIDE 0.9% 100 ML ONE (13:45)
[2017-01-18] MEDS ORDERED: IOHEXOL 300MG/ML 150 ML BTL ONE (13:45)
--- NOTE | 2017-01-18 14:48 | RADRPT ---
PROCEDURE: CT Abdomen and Pelvis with contrast. CLINICAL INDICATION: Abdominal pain. Recent hernia surgery. TECHNIQUE: Multiple contiguous axial CT images of the abdomen and pelvis were obtained following t he administration of 100 cc of Omnipaque-300. Coronal and sagittal reconstructions were also perfor med. CTDIvol (mGy): 16.73; Total Exam DLP (mGy-cm): 998.48. One or more of the following dose reduction techniques were utilized: - Automated exposure control. - Adjustment of the mA and/or kV according to patient size. - Use of iterative reconstruction technique. COMPARISON: 01/21/2016. FINDINGS: Limited imaging of the lower thorax demonstrates an atrial septal closure device. Pacemaker leads t erminate within the right atrium and right ventricle. The heart is enlarged. Scattered atelectatic change versus scarring is seen within the lung bases. The liver and spleen are homogeneous in enhancement. The gallbladder is surgically absent. The baker creas and adrenal glands are unremarkable. The kidneys are symmetric in size and enhancement. There is no hydronephrosis or abnormal perinephr ic inflammation. There are no ureteral stones. The abdominal aorta is normal in caliber. Atherosclerotic calcification is present. There is no jefferson aortic / retroperitoneal lymphadenopathy. A tiny hiatal hernia is present. The small intestines are unremarkable. Scattered few diverticula are seen within the distal colon. The appendix is normal. There are no focal inflammatory changes of the mesentery. There is no mesenteric lymphadenopathy. There is no ascites. The bladder, uterus and adnexa are unremarkable. There is no free pelvic fluid. There is no pelvic sidewall or inguinal lymphadenopathy. Surgical changes compatible to of a right inguinal hernia repa ir with plug are identified. There is no evidence of recurrent hernia. There is no evidence of flu id collection. Mild degenerative changes of the lumbar spine are observed. Body wall soft tissues are unremarkable . IMPRESSION: No evidence of abdominopelvic mass, lymphadenopathy or acute inflammatory pathology. Surgical changes compatible with right inguinal hernia repair. No evidence of recurrent hernia or f luid collection. Sigmoid diverticulosis. No evidence of diverticulitis. RPTAT: HLST .Anum Mariano MD, MD Date Time Electronically viewed and signed by .Anum Mariano MD, MD on 01/18/2017 14:47 .T/
[2017-01-18] MEDS ORDERED: CEPH500C PO (15:22)
== END 2017-01-18 15:50 | disposition home or self-care (01) ==
LOC: FTE 08:46
DX: R10.31 Right lower quadrant pain (principal); N30.90 Cystitis, unspecified without hematuria; Z79.01 Long term (current) use of anticoagulants; Z87.891 Personal history of nicotine dependence
CPT/HCPCS: 36415; 74177; 80048; 81001; 85025; 87086; 99284; Q9967

== ENCOUNTER 2017-04-28 11:30 | Emergency (ER) | payer OTHER ==
[~2017-04-28] VITALS: Ht 160 cm; Wt 75.0 kg
[~2017-04-28 11:30] MED LIST changes: +CEPH500C PO
[2017-04-28 11:32] VITALS: Ht 160 cm; Wt 75.0 kg
[2017-04-28] MEDS ORDERED: ONDANSETRON 4 MG INJ IV STA (12:21)
--- NOTE | 2017-04-28 12:21 | ERA ---
ER Documentation Chief Complaint Date/Time DATE: 04/28/17 TIME: 12:20 Chief Complaint right lower abdominal pain since yesterday HPI The patient is a 46-year-old female, presenting to the ER because of intermittent abdominal pain for 1 day, localize at the epigastric and right lower quadrant, associated with dysuria. She has similar symptoms previously, denies fever, chills, neck pain, chest pain, vomiting, diarrhea. She does not smoke or drink Past medical history: CAD, atrial fibrillation, hypertension Past surgical history: Cholecystectomy, pacemaker, right inguinal herniorrhaphy ROS All systems reviewed and are negative except as per history of present illness. Medications Home Meds Active Scripts Ibuprofen* (Motrin*) 600 Mg Tab, 600 MG PO Q6H Y for PAIN AND OR ELEVATED TEMP, #20 TAB Prov:JENNY JACOBO MD 04/28/17 Atenolol* (Atenolol*) 25 Mg Tablet, 25 MG PO BID for 30 Days, TAB Prov:JULIANNE YANG NP 01/02/17 Reported Medications Apixaban* (Eliquis*) 5 Mg Tablet, 5 MG PO BID, TAB 12/22/16 Discontinued Reported Medications Omeprazole* (Omeprazole*) 20 Mg Capsule.dr, 20 MG PO DAILY 07/26/15 Discontinued Scripts Cephalexin* (Cephalexin*) 500 Mg Capsule, 500 MG PO Q6, #28 CAP Prov:BREANN PAINTER MD 01/18/17 Acyclovir* (Acyclovir*) 200 Mg Capsule, 200 MG PO TID for 5 Days, CAP Prov:JULIANNE YANG NP 01/02/17 Allergies Allergies: Coded Allergies: No Known Allergy (Unverified , 04/28/17) PMhx/Soc History of Surgery: Yes (hernia 2015) Anesthesia Reaction: No Hx Neurological Disorder: No Hx Respiratory Disorders: No Hx Cardiac Disorders: Yes (stents placed in 2008) Hx Psychiatric Problems: No Hx Miscellaneous Medical Probl: No Hx Alcohol Use: Yes (with dinner) Hx Substance Use: No Hx Tobacco Use: Yes Physical Exam Vitals Vital Signs Date Time Temp Pulse Resp B/P Pulse Ox O2 Delivery O2 Flow Rate FiO2 04/28/17 14:47 60 20 139/78 99 Room Air 04/28/17 11:32 97.6 66 18 169/83 97 Physical Exam Const: No acute distress. Head: Atraumatic. Eyes: Normal Conjunctiva. ENT: Normal External Ears, Nose and Mouth. Neck: Full range of motion. No meningismus. Resp: Clear to auscultation bilaterally. Cardio: Regular rate and rhythm. Abd: Soft, non distended, normal bowel sounds, mild epigastric and right lower quadrant tenderness, no rigidity, rebound, CVA tenderness Skin: No petechiae or rashes. Back: No midline or flank tenderness. Ext: No cyanosis, or edema. Neur: Awake and alert. No focal deficit Psych: Normal Mood and Affect. Result Diagram: 04/28/17 1215 04/28/17 1215 Results 24 hrs Laboratory Tests Test 04/28/17 12:15 White Blood Count 7.410^3/ul Red Blood Count 4.6610^6/ul Hemoglobin 14.7g/dl Hematocrit 41.8% Mean Corpuscular Volume 89.7fl Mean Corpuscular Hemoglobin 31.5pg Mean Corpuscular Hemoglobin Concent 35.2g/dl Red Cell Distribution Width 12.1% Platelet Count 72218^3/UL Mean Platelet Volume 9.3fl Neutrophils % 37.5% Lymphocytes % 48.7% Monocytes % 10.1% Eosinophils % 2.4% Basophils % 1.0% Nucleated Red Blood Cells % 0.0/100WBC Neutrophils # 2.810^3/ul Lymphocytes # 3.610^3/ul Monocytes # 0.710^3/ul Eosinophils # 0.210^3/ul Basophils # 0.110^3/ul Nucleated Red Blood Cells # 0.010^3/ul Prothrombin Time 12.8Sec Prothrombin Time Ratio 1.0 INR International Normalized Ratio 0.96 Activated Partial Thromboplast Time 31.3Sec Urine Color YELLOW Urine Clarity CLEAR Urine pH 6.0 Urine Specific [place] 1.015 Urine Ketones NEGATIVEmg/dL Urine Nitrite NEGATIVEmg/dL Urine Bilirubin NEGATIVEmg/dL Urine Urobilinogen NEGATIVEmg/dL Urine Leukocyte Esterase NEGATIVELeu/ul Urine Hemoglobin NEGATIVEmg/dL Urine Glucose NEGATIVEmg/dL Urine Total Protein NEGATIVEmg/dl Sodium Level 141mmol/L Potassium Level 4.6mmol/L Chloride Level 106mmol/L Carbon Dioxide Level 29mmol/L Anion Gap 11 Blood Urea Nitrogen 14mg/dl Creatinine 0.84mg/dl Glucose Level 90mg/dl Calcium Level 10.0mg/dl Total Bilirubin 0.3mg/dl Direct Bilirubin 0.00mg/dl Indirect Bilirubin 0.3mg/dl Aspartate Amino Transf (AST/SGOT) 28IU/L Alanine Aminotransferase (ALT/SGPT) 27IU/L Alkaline Phosphatase 106IU/L Total Protein 8.4g/dl Albumin 4.1g/dl Globulin 4.30g/dl Albumin/Globulin Ratio 0.95 Lipase 155U/L Current Medications Medications (Trade) Dose Ordered Sig/Bruce Route PRN Reason Start Time Stop Time Status Last Admin Dose Admin Morphine Sulfate (morphine) 2 mg ONCE ONCE IV 04/28/17 12:30 04/28/17 12:32 DC 04/28/17 12:37 Ondansetron HCl (Zofran Inj) 4 mg ONCE STAT IV 04/28/17 12:21 04/28/17 12:23 DC 04/28/17 12:37 Procedures/[place] [id number] Radiology Main Line: [phone] DIAGNOSTIC IMAGING REPORT Patient: ARTURO URIBE : 1950 Age: 66 Sex: F MR #: [id number] DOS: 04/28/17 1221 Ordering MD: JENNY JACOBO MD Location: E/R Room/Bed: PROCEDURE: CT Abdomen and Pelvis without contrast. CLINICAL INDICATION: Abdominal pain TECHNIQUE: CT scan of the abdomen and pelvis was performed on a multidetector high-resolution CT scanner without intravenous contrast. Coronal and sagittal reformatted images were obtained from the axial source images. Images were reviewed on a high-resolution PACS workstation. The total exam CTDI equals 14mGy and the total exam DLP equals 785mGy-cm. One or more of the following dose reduction techniques were used: Automated exposure control, Adjustment of the mA and/or kV according to patient size, and/or use of iterative reconstruction technique. COMPARISON: Abdominal CT 01/18/2017 FINDINGS: Evaluation of the solid organs is limited given the lack of intravenous contrast administration. Atrial septal closure device. Pacemaker leads in the right atrium and right ventricle. Cardiomegaly. The liver, pancreas, spleen, and adrenals are grossly unremarkable. Status post cholecystectomy. No hydronephrosis. No obstructing renal or ureteral stone. No bowel obstruction. Normal-caliber appendix. Mural wall stratification of the colon seen. Scattered colonic diverticulosis without evidence of acute diverticulitis. No significant retroperitoneal lymphadenopathy, ascites or evidence of pneumoperitoneum. Surgical changes of right inguinal hernia repair. Aortoiliac atherosclerosis. Degenerative changes of the spine. IMPRESSION: No evidence of appendicitis or bowel obstruction. Colonic diverticulosis without evidence of acute diverticulitis. No obstructing renal stone. Status post cholecystectomy. Mural wall stratification of the colon is nonspecific but could be seen in chronic inflammatory processes in the appropriate setting. Surgical changes of right inguinal hernia repair. RPTAT: AA .Jamey Lara MD, Date Time Electronically viewed and signed by .Jamey Lara MD, MD on 04/28/2017 13:35 .T/ CC: JENNY JACOBO MD MEDICAL MAKING DECISION: The patient is a 66-year-old female, presenting with acute on chronic abdominal pain of unclear etiology. He was treated with morphine 2 mg IV for pain, Zofran formulary for nausea with good response. She is stable for outpatient follow-up. The differential diagnoses considered include but are not limited to adhesion, cystitis, pancreatitis, hepatitis, gastritis, peptic ulcer disease, gastric ulcer, appendicitis, diverticulitis, cholangitis, choledocholithiasis, partial small bowel obstruction. Departure Diagnosis: Primary Impression: Abdominal pain Condition: Good Comments She was discharged with Motrin I discussed the findings with the patient. I advised the patient to follow-up with the primary physician in about 1-2 days, sooner if needed and return if any concern. JENNY JACOBO MD Apr 28, 2017 12:21
[2017-04-28] MEDS ORDERED: morphine 2 MG INJ IV ONE (12:30)
[2017-04-28 12:36] LABS: BASOPHIL # 0.1 10^3/ul (0.0-0.1); EOSINOPHILS # 0.2 10^3/ul (0.0-0.5); EOSINOPHILS % 2.4 % (0.0-7.0); HEMATOCRIT 41.8 % (37.0-47.0); HEMOGLOBIN 14.7 g/dl (12.0-16.0); LYMPHOCYTES # 3.6 10^3/ul (0.8-2.9); LYMPHOCYTES % 48.7 % (15.0-51.0); MEAN CORPUSCULAR HEMOGLOBIN 31.5 pg (29.0-33.0); MEAN CORPUSCULAR HGB CONC 35.2 g/dl (32.0-37.0); MEAN CORPUSCULAR VOLUME 89.7 fl (82.0-101.0); MEAN PLATELET VOLUME 9.3 fl (7.4-10.4); MONOCYTE # 0.7 10^3/ul (0.3-0.9); MONOCYTES % 10.1 % (0.0-11.0); NEUTROPHIL # 2.8 10^3/ul (1.6-7.5); NEUTROPHILS % 37.5 % (39.0-77.0); PLATELET COUNT 295 10^3/UL (140-415); RED BLOOD COUNT 4.66 10^6/ul (4.20-5.40); RED CELL DISTRIBUTION WIDTH 12.1 % (11.5-14.5); WHITE BLOOD COUNT 7.4 10^3/ul (4.8-10.8)
[2017-04-28 12:51] LABS: ADD UMIC NO; UR ASCORBIC ACID NEGATIVE (NEGATIVE); UR BILIRUBIN (Dip) NEGATIVE (NEGATIVE); UR BLOOD (Dip) NEGATIVE (NEGATIVE); UR CLARITY CLEAR (CLEAR); UR COLOR YELLOW (YELLOW); UR GLUCOSE (Dip) NEGATIVE (NEGATIVE); UR KETONES (Dip) NEGATIVE (NEGATIVE); UR LEUKOCYTE ESTERASE (Dip) NEGATIVE Leu/ul (NEGATIVE); UR NITRITE (Dip) NEGATIVE (NEGATIVE); UR SPECIFIC GRAVITY (Dip) 1.015 (1.003-1.030); UR TOTAL PROTEIN (Dip) NEGATIVE (NEGATIVE); UR UROBILINOGEN (Dip) NEGATIVE (NEGATIVE)
[2017-04-28 13:10] LABS: INR 0.96; PROTIME 12.8 Sec (12.2-14.2)
[2017-04-28 13:11] LABS: ALBUMIN 4.1 g/dl (3.3-4.9); ALBUMIN/GLOBULIN RATIO 0.95; BILIRUBIN,INDIRECT 0.3 mg/dl (0-1.1); BILIRUBIN,TOTAL 0.3 mg/dl (0.2-1.3); CREATININE 0.84 mg/dl (0.44-1.00); PARTIAL THROMBOPLASTIN TIME 31.3 Sec (25.0-35.0); POTASSIUM 4.6 mmol/L (3.5-5.1); TOTAL PROTEIN 8.4 g/dl (6.1-8.1)
--- NOTE | 2017-04-28 13:35 | RADRPT ---
PROCEDURE: CT Abdomen and Pelvis without contrast. CLINICAL INDICATION: Abdominal pain TECHNIQUE: CT scan of the abdomen and pelvis was performed on a multidetector high-resolution CT s canner without intravenous contrast. Coronal and sagittal reformatted images were obtained from the axial source images. Images were reviewed on a high-resolution PACS workstation. The total exam CTD I equals 14mGy and the total exam DLP equals 785mGy-cm. One or more of the following dose reduction techniques were used: Automated exposure control, Adjustment of the mA and/or kV according to patien t size, and/or use of iterative reconstruction technique. COMPARISON: Abdominal CT 01/18/2017 FINDINGS: Evaluation of the solid organs is limited given the lack of intravenous contrast administration. Atrial septal closure device. Pacemaker leads in the right atrium and right ventricle. Cardiomegaly. The liver, pancreas, spleen, and adrenals are grossly unremarkable. Status post cholecystectomy. No hydronephrosis. No obstructing renal or ureteral stone. No bowel obstruction. Normal-caliber appendix. Mural wall stratification of the colon seen. Scatte red colonic diverticulosis without evidence of acute diverticulitis. No significant retroperitoneal lymphadenopathy, ascites or evidence of pneumoperitoneum. Surgical ch anges of right inguinal hernia repair. Aortoiliac atherosclerosis. Degenerative changes of the spine. IMPRESSION: No evidence of appendicitis or bowel obstruction. Colonic diverticulosis without evidence of acute diverticulitis. No obstructing renal stone. Status post cholecystectomy. Mural wall stratification of the colon is nonspecific but could be seen in chronic inflammatory proc esses in the appropriate setting. Surgical changes of right inguinal hernia repair. RPTAT: AA .Jamey Lara MD, MD Date Time Electronically viewed and signed by .Jamey Lara MD, MD on 04/28/2017 13:35 .T/
[2017-04-28] MEDS ORDERED: IBUP-1542 PO (14:05)
[2017-04-28 14:47] VITALS: BP 139/78; PULSE 60; RESP 20
== END 2017-04-28 14:49 | disposition home or self-care (01) ==
LOC: E/R 11:30
DX: R10.31 Right lower quadrant pain (principal); R10.13 Epigastric pain; Z98.61 Coronary angioplasty status
CPT/HCPCS: 36415; 74176; 80053; 81003; 83690; 85025; 85610; 85730; 96374; 96375; 99285; J2270; J2405

== ENCOUNTER 2017-04-30 11:33 | Emergency (ER) | payer OTHER ==
[~2017-04-30] VITALS: Ht 167.6 cm; Wt 74.5 kg
[~2017-04-30 11:33] MED LIST changes: -ACYC200C2 PO; -CEPH500C PO; +IBUP-1542 PO; -OMEP20CA16 PO
[2017-04-30 11:44] VITALS: Ht 167.6 cm; Wt 74.5 kg
[2017-04-30] MEDS ORDERED: BELLADONNA/PHENOBARBITAL TAB PO STA (13:52)
[2017-04-30] MEDS ORDERED: FAMOTIDINE 20 MG TAB PO STA (13:52)
[2017-04-30] MEDS ORDERED: LIDOCAINE/MYLANTA 40 ML BTL PO STA (13:52)
[2017-04-30] MEDS ORDERED: KETOROLAC 30 MG INJ IM STA (13:52)
[2017-04-30] MEDS ORDERED: NAPR-688 PO (13:58)
[2017-04-30 14:25] VITALS: BP 128/69; PULSE 73; RESP 18; TEMP 98.8
--- NOTE | 2017-04-30 18:03 | ERD ---
ER Documentation Chief Complaint Date/Time DATE: 04/30/17 TIME: 18:00 Chief Complaint Complains of abdominal pain x 3 days HPI 66-year-old woman complains of continued abdominal pain despite full evaluation just a few days ago. She was diagnosed with hernia and is status post cholecystectomy many years ago. She has "burning sensation" to the right upper abdomen and right groin discomfort secondary to small hernia that was diagnosed on CAT scan imaging recently. She denies weight loss, no blood per rectum or melena, no chest pain or shortness of breath, no fevers or chills. She has been using oral analgesics at home without complete relief of pain although she states it has been helping. ROS All systems reviewed and are negative except as per history of present illness. Medications Home Meds Active Scripts Naproxen* (Naproxen*) 500 Mg Tablet, 500 MG PO BID Y for PAIN, #30 TAB Prov:SUNITHA CALVIN MD 04/30/17 Ibuprofen* (Motrin*) 600 Mg Tab, 600 MG PO Q6H Y for PAIN AND OR ELEVATED TEMP, #20 TAB Prov:JENNY JACOBO MD 04/28/17 Atenolol* (Atenolol*) 25 Mg Tablet, 25 MG PO BID for 30 Days, TAB Prov:JULIANNE YANG NP 01/02/17 Reported Medications Apixaban* (Eliquis*) 5 Mg Tablet, 5 MG PO BID, TAB 12/22/16 Discontinued Reported Medications Omeprazole* (Omeprazole*) 20 Mg Capsule.dr, 20 MG PO DAILY 07/26/15 Discontinued Scripts Cephalexin* (Cephalexin*) 500 Mg Capsule, 500 MG PO Q6, #28 CAP Prov:BREANN PAINTER MD 01/18/17 Acyclovir* (Acyclovir*) 200 Mg Capsule, 200 MG PO TID for 5 Days, CAP Prov:JULIANNE YANG NP 01/02/17 Allergies Allergies: Coded Allergies: No Known Allergy (Unverified , 04/28/17) PMhx/Soc Gastritis, post cholecystectomy, inguinal hernia History of Surgery: Yes (hernia 2015, pacemaker, lap kale) Anesthesia Reaction: No Hx Neurological Disorder: No Hx Respiratory Disorders: No Hx Cardiac Disorders: Yes (stents placed in 2008 , afib ) Hx Psychiatric Problems: No Hx Miscellaneous Medical Probl: No Hx Alcohol Use: Yes (with dinner) Hx Substance Use: No Hx Tobacco Use: Yes Smoking Status: Never smoker FmHx Family History: No diabetes Physical Exam Vitals Vital Signs Date Time Temp Pulse Resp B/P Pulse Ox O2 Delivery O2 Flow Rate FiO2 04/30/17 14:25 98.8 73 18 128/69 98 Room Air 04/30/17 11:44 97.0 70 20 136/62 98 Physical Exam GENERAL: Well-developed, well-nourished, well-hydrated, in no apparent distress , looks nontoxic in appearance HEENT: Moist mucous membranes, pink conjunctiva, no cervical spine tenderness or step-off deformities, no goiter, no jaundice or icterus, extraocular movements intact without pain. No submandibular induration, and no pharyngeal erythema NEURO: Alert and oriented 3, cranial nerves II through XII intact bilaterally, pupils equal round reactive to light, no focal deficits or facial asymmetry, sensation intact distally Strength 5/5 in upper and lower extremities bilaterally CARDIAC: Regular rate and rhythm, no murmurs rubs or gallops LUNGS: Clear bilaterally no wheezing crackles or stridor ABDOMEN: Soft nontender, no guarding, no rigidity, no rebound, no psoas sign no obturator sign. Normoactive bowel sounds SKIN: Warm and dry to touch, no abrasions, contusions, or hematomas, no lacerations, no ecchymosis, no target lesions, and without ulcers EXTREMITIES: No clubbing cyanosis or edema, calves are bilaterally symmetrical, no Homans sign, no popliteal cord sign. Distal pulses equal and bilateral PSYCH: Normal affect without agitation or irritability Results 24 hrs Current Medications Medications (Trade) Dose Ordered Sig/Bruce Route PRN Reason Start Time Stop Time Status Last Admin Dose Admin Ketorolac Tromethamine (Toradol) 30 mg ONCE STAT IM 04/30/17 13:52 04/30/17 13:54 DC 04/30/17 14:04 Famotidine (Pepcid) 40 mg ONCE STAT PO 04/30/17 13:52 04/30/17 13:54 DC 04/30/17 14:05 Miscellaneous Medication (Gi Cocktail (2)) 40 ml ONCE STAT PO 04/30/17 13:52 04/30/17 13:54 DC 04/30/17 14:05 Belladonna/ Phenobarbital () 2 tab ONCE STAT PO 04/30/17 13:52 04/30/17 13:54 DC 04/30/17 14:05 Procedures/MDM I administered Toradol 30 mg IM 1 and a GI cocktail 50 cc p.o. with good response. I reviewed all her recent medical records including CT imaging and labs, all of which were within normal limits. I gave her copies of her imaging studies and labs as well as her urine analysis results. She will follow-up with her PMD for continued outpatient management and referral to surgery and GI for outpatient consultations. Differential diagnoses considered, included but not limited to acute coronary syndrome, pulmonary embolism, aortic dissection, abdominal aortic aneurysm, sepsis, stroke, meningitis, encephalitis, pneumonia, appendicitis, cholecystitis , bowel obstruction, pyelonephritis, nephrolithiasis, cystitis, as well as metabolic, hematologic, and electrolyte abnormalities. As well as abscess, cellulitis, fractures, and dislocations. Patient feels much better at this time, and vital signs are normal, symptoms have improved. I did give strict instructions to return to the ED if symptoms continue or worsen, patient will otherwise follow-up with primary care physician. Patient understood instructions and agreed to plan. Disclaimer: Inadvertent spelling and grammatical errors are likely due to EHR/ dictation software use and do not reflect on the overall quality of patient care. Also, please note that the electronic time recorded on this note does not necessarily reflect the actual time of the patient encounter. Departure Diagnosis: Primary Impression: Abdominal pain Abdominal location: right upper quadrant Qualified Code: R10.11 - Right upper quadrant abdominal pain Additional Impression: Inguinal hernia Obstruction and gangrene presence: without obstruction or gangrene Laterality : unilateral Recurrence: recurrent Qualified Code: K40.91 - Unilateral recurrent inguinal hernia without obstruction or gangrene Condition: Good Patient Instructions: Abdominal Pain Referrals: FELIX MALDONADO (PCP) SUNITHA CALVIN MD Apr 30, 2017 18:03
== END 2017-04-30 14:26 | disposition home or self-care (01) ==
LOC: FTE 11:33 → E/R 14:26
DX: K40.91 Unilateral inguinal hernia, without obstruction or gangrene, recurrent (principal); Z79.01 Long term (current) use of anticoagulants; Z87.891 Personal history of nicotine dependence; Z95.0 Presence of cardiac pacemaker
CPT/HCPCS: 96372; 99284; J1885

== ENCOUNTER 2017-07-01 12:16 | Emergency (ER) | payer OTHER ==
[~2017-07-01] VITALS: Wt 75.6 kg
[~2017-07-01 12:16] MED LIST changes: +NAPR-688 PO
[2017-07-01] MEDS ORDERED: ACETAMINOPHEN 500 MG TAB PO STA (12:38)
--- NOTE | 2017-07-01 12:55 | ERD ---
ER Documentation Chief Complaint Chief Complaint HEADACHE, MISFIRING PACEMAKER HPI This is a 66-year-old female who presents to the emergency room complaining of multiple issues. A manager of supply chain was used. The patient states that for at least 4-5 days after walking through a medical doctor she has been experiencing palpitations. Despite what was noted in triage she has not noting a discharge of her pacemaker. She is only describing palpitations in her chest. She denies any chest pressure, exertional symptoms or pleuritic pain. She has noted her blood pressures been more elevated than baseline. This is despite taking her medications. She describes a bandlike diffuse gradual onset headache that is 5 out of 10 currently. ROS All systems reviewed and are negative except as per history of present illness. Medications Home Meds Active Scripts Atenolol* (Atenolol*) 25 Mg Tablet, 25 MG PO BID for 30 Days, TAB Prov:JULIANNE YANG NP 01/02/17 Reported Medications Apixaban* (Eliquis*) 5 Mg Tablet, 5 MG PO BID, TAB 12/22/16 Discontinued Scripts Naproxen* (Naproxen*) 500 Mg Tablet, 500 MG PO BID Y for PAIN, #30 TAB Prov:SUNITHA CALVIN MD 04/30/17 Ibuprofen* (Motrin*) 600 Mg Tab, 600 MG PO Q6H Y for PAIN AND OR ELEVATED TEMP, #20 TAB Prov:JENNY JACOBO MD 04/28/17 Allergies Allergies: Coded Allergies: No Known Allergy (Unverified , 07/01/17) PMhx/Soc History of Surgery: Yes (hernia 2015, pacemaker, lap kale) Anesthesia Reaction: No Hx Neurological Disorder: No Hx Respiratory Disorders: No Hx Cardiac Disorders: Yes (stents placed in 2008 , afib ) Hx Psychiatric Problems: No Hx Miscellaneous Medical Probl: No Hx Alcohol Use: Yes (with dinner) Hx Substance Use: No Hx Tobacco Use: Yes Smoking Status: Current every day smoker FmHx Family History: No diabetes Physical Exam Vitals Vital Signs Date Time Temp Pulse Resp B/P Pulse Ox O2 Delivery O2 Flow Rate FiO2 07/01/17 15:30 98.4 62 18 138/72 98 Room Air 07/01/17 15:10 60 18 112/64 98 Room Air 07/01/17 15:05 98.4 60 07/01/17 12:21 98.4 62 18 171/74 99 Physical Exam General: Well developed, well nourished, no acute distress Head: Normocephalic, atraumatic. Eyes: Pupils equally reactive, EOM intact ENT: Moist mucous membranes Neck: Supple, no lymphadenopathy Respiratory: Lungs clear bilaterally, no distress Cardiovascular: RRR, no murmurs, rubs, or gallops Abdominal: Soft, non-tender, non-distended, no peritoneal signs : Deferred MSK: No edema, no unilateral swelling, 5/5 strength Neurologic: Alert and oriented, moving all extremities, normal speech, no focal weakness, no cerebellar signs Skin: No rash Psych: Normal mood Result Diagram: 07/01/17 1533 07/01/17 1533 Results 24 hrs Laboratory Tests Test 07/01/17 15:33 White Blood Count 6.010^3/ul Red Blood Count 4.1010^6/ul Hemoglobin 12.8g/dl Hematocrit 37.2% Mean Corpuscular Volume 90.7fl Mean Corpuscular Hemoglobin 31.2pg Mean Corpuscular Hemoglobin Concent 34.4g/dl Red Cell Distribution Width 12.3% Platelet Count 45947^3/UL Mean Platelet Volume 9.4fl Neutrophils % 37.4% Lymphocytes % 49.7% Monocytes % 9.2% Eosinophils % 2.7% Basophils % 0.8% Nucleated Red Blood Cells % 0.0/100WBC Neutrophils # 2.210^3/ul Lymphocytes # 3.010^3/ul Monocytes # 0.610^3/ul Eosinophils # 0.210^3/ul Basophils # 0.110^3/ul Nucleated Red Blood Cells # 0.010^3/ul Sodium Level 143mmol/L Potassium Level 4.5mmol/L Chloride Level 106mmol/L Carbon Dioxide Level 29mmol/L Anion Gap 13 Blood Urea Nitrogen 17mg/dl Creatinine 0.85mg/dl Glucose Level 87mg/dl Calcium Level 9.7mg/dl Troponin I < 0.012ng/ml Current Medications Medications (Trade) Dose Ordered Sig/Bruce Route PRN Reason Start Time Stop Time Status Last Admin Dose Admin Acetaminophen (Tylenol Tab) 1,000 mg ONCE STAT PO 07/01/17 12:38 07/01/17 12:40 DC 07/01/17 13:00 Procedures/MDM EKG, MONITORS, & DIAGNOSTIC IMAGING: EKG: I reviewed and interpreted a 12-lead EKG. Rhythm: Normal sinus rhythm Ectopy: None Intervals: No abnormalities ST segments: No elevations or depressions T waves: No contiguous inversions . Chest x-ray: I reviewed and interpreted a 1 view of the chest Mediastinum: No enlargement Cardiac silhouette: No cardiomegaly Airspace: Clear lung collins bilaterally without evidence of pneumothorax Bones: No evidence of fracture CT brain: IMPRESSION: 1. No acute intracranial hemorrhage, transcortical infarction or mass effect. 2. Mild intracranial atherosclerosis and chronic small vessel ischemic changes. 3. Small old lacunar infarct versus dilated perivascular space is noted in the right lentiform nucleus. 4. Mild generalized cerebral volume loss. RPTAT: LAB INTERPRETATION: Negative troponin MEDICAL DECISION MAKING: The patient presents to the emergency room describing palpitations. The patient states that this is started to occur after walking through a medical doctor. She denies any discharge of her pacemaker. The patient has a normal rhythm on her EKG. She is describing palpitations. Consider stress and anxiety. Much lower clinical concern her pretest probability for intracranial hemorrhage, acute coronary syndrome. No signs or symptoms concerning for pulmonary embolism. I do believe she will benefit from interrogation of her pacemaker and will call [employer]. I will speak to her sports bookmaker, Dr. Fontenot for outpatient follow-up. I believe a single EKG and troponin given the duration of symptoms would be appropriate here in the emergency room. She is having no active chest pain or exertional symptoms or chest pressure. ER COURSE: Patient continues to be well-appearing and asymptomatic. She is taking Eliquis. The patient's pacemaker was interrogated by [employer]. They have noted a 2% atrial fibrillation rate with a 50% RVR rate without other events. They state the settings are currently appropriate. I have relayed this information of the patient's on-call sports bookmaker Dr. Esposito. Outpatient follow-up is appropriate. She is appropriately anticoagulated. Her headache is well controlled. The patient's headache is unlikely related to serious etiology. The patient does not exhibit any clinical signs or symptoms, and has no risk factors to suggest headache etiology such as subarachnoid hemorrhage, acute vertebral or carotid dissection, intracranial mass, epidural, subdural hematoma, dural venous sinus thrombosis, giant cell arteritis, or pseudotumor cerebri. I kept the patient and/or family informed of laboratory and diagnostic imaging results throughout the emergency room course. DISPOSITION PLAN: We discussed follow up with the patient's primary care doctor within 24 to 48 hours as needed. We also discussed return to the emergency room for worsening symptoms or worsening condition. Outpatient referral: Cardiology Discharge Medications: None required Departure Diagnosis: Primary Impression: Headache Headache type: unspecified Headache chronicity pattern: acute headache Intractability: not intractable Qualified Code: R51 - Acute nonintractable headache, unspecified headache type Additional Impressions: Palpitations Paroxysmal atrial fibrillation with RVR Condition: Stable ORACIO LUGO MD Jul 01, 2017 12:55
--- NOTE | 2017-07-01 13:58 | RADRPT ---
PROCEDURE: XR Chest 1 view. CLINICAL INDICATION: Chest pain. TECHNIQUE: Single view of the chest was obtained. COMPARISON: DR CHEST 12/30/[address] pulmonary angiogram December 19 10/19/2016 FINDINGS: The heart is large. Calcified atherosclerosis is noted in the aorta. Left-sided dual chamber pacema ker has its leads over the heart and appears grossly stable.2 punctate metallic densities overlying the heart adjacent to the right atrial lead are stable. Scattered subsegmental atelectasis is noted in the bilateral lower lobes. No consolidations are identified. No pneumothorax is seen. Osseous s tructures are intact. IMPRESSION: Cardiomegaly with calcified atherosclerosis in the aorta. Scattered atelectasis in the bilateral lower lungs. Stable punctate metallic densities over the heart that correspond to small metallic densities in the interatrial septum on prior CT. These may reflect retained foreign bodies, possibly from a prior pa cemaker or atrial closure device. Correlation with clinical history is recommended. If further nivia cterization is needed noncontrast CT could be helpful. RPTAT: AA .Malick Christine MD, Date Time Electronically viewed and signed by .Malick Christine MD, on 07/01/2017 13:58 .P/
--- NOTE | 2017-07-01 14:53 | RADRPT ---
PROCEDURE: CT Brain without contrast. CLINICAL INDICATION: Headache. TECHNIQUE: A CT of the brain was performed on multidetector high-resolution CT scanner utilizing a xial sections from the skull base through the vertex without contrast. The scan was reviewed in sof t tissue brain and high frequency resolution bone algorithm windows. Images were reviewed on a high -resolution PACS workstation. One or more the following does reduction techniques were utilized: Aut omated exposure control, adjustment of the mA/ or kV according to patient's size, or use of iterativ e reconstruction technique. The exam CTDI = 42.3 mGy and the DLP = 57.09 mGy-cm. DICOM images are available. COMPARISON: None available. FINDINGS: The ventricles and sulci are mildly prominent indicative of volume loss. There is no intracranial h emorrhage, mass effect or midline shift. No abnormal intra-axial or extra-axial fluid collections a re seen. The smith/white matter differentiation is preserved. There are mild scattered foci of hypoattenuation in the white matter, which are nonspecific in etiol ogy but likely reflect chronic small vessel ischemic changes. Small old lacunar infarct versus dila remedios perivascular space is noted in the right lentiform nucleus. There are mild intracranial vascula r calcifications consistent with atherosclerosis. The visualized paranasal sinuses are essentially c lear. IMPRESSION: 1. No acute intracranial hemorrhage, transcortical infarction or mass effect. 2. Mild intracranial atherosclerosis and chronic small vessel ischemic changes. 3. Small old lacunar infarct versus dilated perivascular space is noted in the right lentiform nucl eus. 4. Mild generalized cerebral volume loss. RPTAT: HH .Goldie Glaser MD, MD Date Time Electronically viewed and signed by .Goldie Glaser MD, MD on 07/01/2017 14:52 .N/
[2017-07-01 15:44] LABS: BASOPHIL # 0.1 10^3/ul (0.0-0.1); BASOPHILS % 0.8 % (0.0-2.0); EOSINOPHILS # 0.2 10^3/ul (0.0-0.5); EOSINOPHILS % 2.7 % (0.0-7.0); HEMATOCRIT 37.2 % (37.0-47.0); HEMOGLOBIN 12.8 g/dl (12.0-16.0); LYMPHOCYTES % 49.7 % (15.0-51.0); MEAN CORPUSCULAR HEMOGLOBIN 31.2 pg (29.0-33.0); MEAN CORPUSCULAR HGB CONC 34.4 g/dl (32.0-37.0); MEAN CORPUSCULAR VOLUME 90.7 fl (82.0-101.0); MEAN PLATELET VOLUME 9.4 fl (7.4-10.4); MONOCYTE # 0.6 10^3/ul (0.3-0.9); MONOCYTES % 9.2 % (0.0-11.0); NEUTROPHIL # 2.2 10^3/ul (1.6-7.5); NEUTROPHILS % 37.4 % (39.0-77.0); PLATELET COUNT 257 10^3/UL (140-415); RED CELL DISTRIBUTION WIDTH 12.3 % (11.5-14.5)
[2017-07-01 16:04] LABS: ANION GAP 13 (8-16); BLOOD UREA NITROGEN 17 mg/dl (7-20); CALCIUM 9.7 mg/dl (8.4-10.2); CARBON DIOXIDE 29 mmol/L (21-31); CHLORIDE 106 mmol/L (97-110); CREATININE 0.85 mg/dl (0.44-1.00); GLUCOSE 87 mg/dl (70-220); POTASSIUM 4.5 mmol/L (3.5-5.1); SODIUM 143 mmol/L (135-144)
[2017-07-01 16:17] LABS: TROPONIN-I < 0.012 ng/ml (0.00-0.12)
[2017-07-01 16:30] VITALS: BP 131/68; PULSE 60; RESP 18; TEMP 98.4
== END 2017-07-01 16:48 | disposition home or self-care (01) ==
LOC: E/R 12:16
DX: I48.0 Paroxysmal atrial fibrillation (principal); R51 Headache; F17.210 Nicotine dependence, cigarettes, uncomplicated; Z79.01 Long term (current) use of anticoagulants; Z95.0 Presence of cardiac pacemaker; Z98.61 Coronary angioplasty status
CPT/HCPCS: 36415; 70450; 71010; 80048; 84484; 85025; 93005

== ENCOUNTER 2017-07-22 10:23 | Emergency (ER) | payer OTHER ==
[~2017-07-22] VITALS: Ht 165.1 cm; Wt 74.9 kg
[~2017-07-22 10:23] MED LIST changes: -IBUP-1542 PO; -NAPR-688 PO
[2017-07-22 10:25] VITALS: Ht 165.1 cm; Wt 74.9 kg
[2017-07-22] MEDS ORDERED: KETOROLAC 30 MG INJ IV STA (10:48)
[2017-07-22] MEDS ORDERED: ONDANSETRON 4 MG INJ IV STA (10:48)
[2017-07-22 11:34] LABS: BASOPHIL # 0.1 10^3/ul (0.0-0.1); BASOPHILS % 0.8 % (0.0-2.0); EOSINOPHILS # 0.1 10^3/ul (0.0-0.5); EOSINOPHILS % 2.1 % (0.0-7.0); HEMATOCRIT 38.1 % (37.0-47.0); HEMOGLOBIN 13.6 g/dl (12.0-16.0); LYMPHOCYTES # 2.5 10^3/ul (0.8-2.9); LYMPHOCYTES % 40.6 % (15.0-51.0); MEAN CORPUSCULAR HEMOGLOBIN 31.5 pg (29.0-33.0); MEAN CORPUSCULAR HGB CONC 35.7 g/dl (32.0-37.0); MEAN CORPUSCULAR VOLUME 88.2 fl (82.0-101.0); MEAN PLATELET VOLUME 10.2 fl (7.4-10.4); MONOCYTE # 0.6 10^3/ul (0.3-0.9); MONOCYTES % 9.6 % (0.0-11.0); NEUTROPHIL # 2.8 10^3/ul (1.6-7.5); NEUTROPHILS % 46.6 % (39.0-77.0); PLATELET COUNT 275 10^3/UL (140-415); RED BLOOD COUNT 4.32 10^6/ul (4.20-5.40); WHITE BLOOD COUNT 6.1 10^3/ul (4.8-10.8)
[2017-07-22 11:39] LABS: ADD UMIC NO; UR ASCORBIC ACID NEGATIVE (NEGATIVE); UR BILIRUBIN (Dip) NEGATIVE (NEGATIVE); UR BLOOD (Dip) NEGATIVE (NEGATIVE); UR CLARITY CLEAR (CLEAR); UR COLOR YELLOW (YELLOW); UR GLUCOSE (Dip) NEGATIVE (NEGATIVE); UR KETONES (Dip) NEGATIVE (NEGATIVE); UR LEUKOCYTE ESTERASE (Dip) NEGATIVE Leu/ul (NEGATIVE); UR NITRITE (Dip) NEGATIVE (NEGATIVE); UR SPECIFIC GRAVITY (Dip) 1.012 (1.003-1.030); UR TOTAL PROTEIN (Dip) NEGATIVE (NEGATIVE); UR UROBILINOGEN (Dip) NEGATIVE (NEGATIVE)
[2017-07-22 11:54] LABS: ALANINE AMINOTRANSFERASE 30 IU/L (13-69); ALBUMIN 3.9 g/dl (3.3-4.9); ALBUMIN/GLOBULIN RATIO 0.97; ALKALINE PHOSPHATASE 102 IU/L (42-121); ANION GAP 11 (8-16); ASPARTATE AMINO TRANSFERASE 22 IU/L (15-46); BILIRUBIN,INDIRECT 0.2 mg/dl (0-1.1); BILIRUBIN,TOTAL 0.2 mg/dl (0.2-1.3); BLOOD UREA NITROGEN 16 mg/dl (7-20); CALCIUM 9.5 mg/dl (8.4-10.2); CARBON DIOXIDE 26 mmol/L (21-31); CHLORIDE 107 mmol/L (97-110); GLUCOSE 91 mg/dl (70-220); POTASSIUM 3.8 mmol/L (3.5-5.1); SODIUM 140 mmol/L (135-144); TOTAL PROTEIN 7.9 g/dl (6.1-8.1)
--- NOTE | 2017-07-22 11:55 | RADRPT ---
PROCEDURE: CT Abdomen and pelvis without contrast. CLINICAL INDICATION: Right lower quadrant abdominal pain TECHNIQUE: CT scan of the abdomen and pelvis without contrast was performed on a multidetector hig h-resolution CT scan. . Coronal and sagittal reformatted images were obtained from the axial [facility] e images. Standard CT scan of the abdomen pelvis without contrast protocols were performed. The total exam CTDI equals 14.82 mGy and the total exam DLP equals 860.59 mGy-cm. One or more of the following dose reduction techniques were used: - Automated exposure control. - Adjustment of the mA and/or kV according to patient size. Use of iterative reconstruction technique. Dicom images are available COMPARISON: None. FINDINGS: The kidneys are normal in size without hydronephrosis or intra renal masses bilaterally. In the late ral left mid kidney is a punctate 2-3 mm non-obstructing calcified calculus. No other calcified elle l calculi. No evidence of calcified ureteral calculi. Urinary bladder is partially contracted but ot herwise unremarkable. Retroverted uterus otherwise unremarkable. No adnexal masses. Negative for intra-abdominal free air, free fluid, abscesses or lymphadenopathy. Small hiatal hernia with the stomach otherwise unremarkable. Small bowel and appendix are unremarkab le. Diverticular changes of the sigmoid and distal descending colon but no CT evidence of diverticul itis. The colon is otherwise unremarkable. Status post cholecystectomy without biliary ductal dilation. The spleen pancreas and adrenal glands are unremarkable. Atherosclerosis of the aorta and both iliac arteries but no aneurysm. Abdominal pelvic wall unremark able. There is scarring at both lung bases. Electrode from pacemaker extending to the right heart. Degenerative changes lower thoracic and lumbar spine without acute osseous findings are osteoblastic /osteolytic lesions. IMPRESSION: 1. Small hiatal hernia. 2. Status post cholecystectomy without biliary ductal dilation. 3. 2-3 mm punctate non-obstructing lateral left mid renal calcified calculus. No other calcified ur inary calculi or obstructive uropathy. 4. Diverticulosis of the sigmoid and distal descending colon without CT evidence of diverticulitis. 5. Unremarkable appendix. RPTAT:AAJJ Physician Ana Date Time Electronically viewed and signed by Physician Ana on 07/22/2017 11:55 BM/
[2017-07-22 12:05] LABS: TROPONIN-I < 0.012 ng/ml (0.00-0.12)
[2017-07-22] MEDS ORDERED: HYDR-902 PO (12:28)
[2017-07-22] MEDS ORDERED: ONDA4TAB14 PO (12:28)
[2017-07-22 12:38] VITALS: BP 121/57; PULSE 60; RESP 18; TEMP 97.7
--- NOTE | 2017-07-22 14:05 | ERD ---
ER Documentation Chief Complaint Chief Complaint RIGHT LOWER QUADRANT PAIN,NAUSEA HPI Patient is a 66-year-old female with atrial fibrillation and hypertension who presents with abdominal pain. She has a history of a hernia. She has right- sided abdominal pain and right-sided flank pain. This started 3 days ago she said it was "very bad". It comes and goes. She has had no treatment as of yet. She has had vomiting but no diarrhea. Upon review of old medical records she has multiple visits with chest pain and abdominal pain. Her primary doctor is Dr. Conte. ROS All systems reviewed and are negative except as per history of present illness. Medications Home Meds Active Scripts Ondansetron (Ondansetron Odt) 4 Mg Tab.rapdis, 4 MG PO Q6H Y for NAUSEA AND/OR VOMITING, #10 TAB Prov:MERCED JASSO MD 07/22/17 Hydrocodone/Acetaminophen ([place] 10-325 Tablet) 1 Each Tablet, 1 TAB PO Q6H Y for PAIN, #7 TAB Prov:MERCED JASSO MD 07/22/17 Atenolol* (Atenolol*) 25 Mg Tablet, 25 MG PO BID for 30 Days, TAB Prov:JULIANNE YANG NP 01/02/17 Reported Medications Apixaban* (Eliquis*) 5 Mg Tablet, 5 MG PO BID, TAB 12/22/16 Allergies Allergies: Coded Allergies: No Known Allergy (Unverified , 07/01/17) PMhx/Soc History of Surgery: Yes (hernia 2015, pacemaker, lap kale) Anesthesia Reaction: No Hx Neurological Disorder: No Hx Respiratory Disorders: No Hx Cardiac Disorders: Yes (stents placed in 2008 , afib ) Hx Psychiatric Problems: No Hx Miscellaneous Medical Probl: No Hx Alcohol Use: Yes (with dinner) Hx Substance Use: No Hx Tobacco Use: Yes Smoking Status: Never smoker FmHx Family History: No diabetes Physical Exam Vitals Vital Signs Date Time Temp Pulse Resp B/P Pulse Ox O2 Delivery O2 Flow Rate FiO2 07/22/17 12:38 97.7 60 18 121/57 98 Room Air 07/22/17 10:25 98.4 68 18 133/69 98 Physical Exam Const: Moderate distress secondary to pain Head: Atraumatic Eyes: Normal Conjunctiva ENT: Normal External Ears, Nose and Mouth. Neck: Full range of motion..~ No meningismus. Resp: Clear to auscultation bilaterally Cardio: Regular rate and rhythm, no murmurs Abd: Soft, minimal tenderness to palpation diffusely Skin: No petechiae or rashes Back: No midline or flank tenderness Ext: No cyanosis, or edema Neur: Awake and alert Psych: Normal Mood and Affect Result Diagram: 07/22/17 1100 07/22/17 1100 Results 24 hrs Laboratory Tests Test 07/22/17 11:00 White Blood Count 6.110^3/ul Red Blood Count 4.3210^6/ul Hemoglobin 13.6g/dl Hematocrit 38.1% Mean Corpuscular Volume 88.2fl Mean Corpuscular Hemoglobin 31.5pg Mean Corpuscular Hemoglobin Concent 35.7g/dl Red Cell Distribution Width 12.0% Platelet Count 96144^3/UL Mean Platelet Volume 10.2fl Neutrophils % 46.6% Lymphocytes % 40.6% Monocytes % 9.6% Eosinophils % 2.1% Basophils % 0.8% Nucleated Red Blood Cells % 0.0/100WBC Neutrophils # 2.810^3/ul Lymphocytes # 2.510^3/ul Monocytes # 0.610^3/ul Eosinophils # 0.110^3/ul Basophils # 0.110^3/ul Nucleated Red Blood Cells # 0.010^3/ul Urine Color YELLOW Urine Clarity CLEAR Urine pH 5.0 Urine Specific [place] 1.012 Urine Ketones NEGATIVEmg/dL Urine Nitrite NEGATIVEmg/dL Urine Bilirubin NEGATIVEmg/dL Urine Urobilinogen NEGATIVEmg/dL Urine Leukocyte Esterase NEGATIVELeu/ul Urine Hemoglobin NEGATIVEmg/dL Urine Glucose NEGATIVEmg/dL Urine Total Protein NEGATIVEmg/dl Sodium Level 140mmol/L Potassium Level 3.8mmol/L Chloride Level 107mmol/L Carbon Dioxide Level 26mmol/L Anion Gap 11 Blood Urea Nitrogen 16mg/dl Creatinine 0.80mg/dl Glucose Level 91mg/dl Calcium Level 9.5mg/dl Total Bilirubin 0.2mg/dl Direct Bilirubin 0.00mg/dl Indirect Bilirubin 0.2mg/dl Aspartate Amino Transf (AST/SGOT) 22IU/L Alanine Aminotransferase (ALT/SGPT) 30IU/L Alkaline Phosphatase 102IU/L Troponin I < 0.012ng/ml Total Protein 7.9g/dl Albumin 3.9g/dl Globulin 4.00g/dl Albumin/Globulin Ratio 0.97 Lipase 152U/L Current Medications Medications (Trade) Dose Ordered Sig/Bruce Route PRN Reason Start Time Stop Time Status Last Admin Dose Admin Ondansetron HCl (Zofran Inj) 4 mg ONCE STAT IV 07/22/17 10:48 07/22/17 10:49 DC 07/22/17 11:06 Ketorolac Tromethamine (Toradol) 30 mg ONCE STAT IV 07/22/17 10:48 07/22/17 10:49 DC 07/22/17 11:06 Procedures/MDM CT abdomen pelvis shows no surgical process per radiology. EKG read by me: Rate/Rhythm: Regular rate and rhythm at a normal rate Intervals: Normal Impression: No evidence of ischemia or arrhythmia Patient is a 66-year-old female with atrial fibrillation and hypertension who presents with abdominal pain. Laboratory studies were basically normal and CT scan of the abdomen pelvis shows no obvious surgical process. I doubt appendicitis, cholecystitis, pancreatitis, or bowel obstruction. I doubt acute coronary syndrome. Departure Diagnosis: Primary Impression: Abdominal pain Abdominal location: generalized Qualified Code: R10.84 - Generalized abdominal pain Condition: Fair Patient Instructions: Abdominal Pain Referrals: FELIX CONTE (PCP) Additional Instructions: Visite a armstrong shayna ramírez para un EXAMEN.Regrese a estas instalaciones si no se mejora cassy esperbamos o cassy alejandro krueger. MERCED JASSO MD Jul 22, 2017 14:05
== END 2017-07-22 12:40 | disposition home or self-care (01) ==
LOC: E/R 10:23
DX: R10.84 Generalized abdominal pain (principal); I10 Essential (primary) hypertension; Z87.891 Personal history of nicotine dependence; Z98.61 Coronary angioplasty status
CPT/HCPCS: 36415; 74176; 80053; 81003; 83690; 84484; 85025; 96374; 96375; 99285; J1885; J2405

== ENCOUNTER 2017-09-24 01:07 | Emergency (ER) | END 2017-09-24 05:32 | disposition home or self-care (01) ==

== ENCOUNTER 2017-10-20 23:32 | Emergency (ER) | END 2017-10-21 06:23 | disposition home or self-care (01) ==

== ENCOUNTER 2017-10-28 11:34 | Emergency (ER) | END 2017-10-28 14:01 | disposition home or self-care (01) ==

== ENCOUNTER 2018-04-29 17:08 | Emergency (ER) | END 2018-04-29 20:04 | disposition home or self-care (01) ==

== ENCOUNTER 2018-05-03 11:48 | Emergency (ER) | END 2018-05-03 15:49 | disposition home or self-care (01) ==

== ENCOUNTER 2018-11-22 14:24 | Emergency (ER) | payer OTHER ==
[~2018-11-22] VITALS: Ht 162.6 cm; Wt 76.7 kg
[~2018-11-22 14:24] MED LIST changes: +FLEC50TA PO; +FURO40TA4 PO; +HYDR-4011 PO; +NAPR-688 PO; +PANT40TA3 PO; +POTA20TA96 PO
[2018-11-22 14:41] VITALS: Ht 162.6 cm; Wt 76.7 kg
[2018-11-22] MEDS ORDERED: SOD CHLORIDE 0.9% 1,000 ML IV STA (16:09)
[2018-11-22] MEDS ORDERED: ONDANSETRON 4 MG INJ IV STA (16:09)
[2018-11-22] MEDS ORDERED: morphine 4 MG/ML VIAL IV STA (16:09)
[2018-11-22] MEDS ORDERED: KETOROLAC 30 MG INJ IV STA (16:35)
[2018-11-22] MEDS ORDERED: APIX5TAB PO (17:32)
[2018-11-22] MEDS ORDERED: PANT20TA3 PO (17:32)
[2018-11-22] MEDS ORDERED: ATEN50TA PO (17:32)
[2018-11-22] MEDS ORDERED: IBUP-1542 PO (18:57)
[2018-11-22] MEDS ORDERED: ONDA4TAB14 PO (18:57)
[2018-11-22 19:18] VITALS: BP 128/62; PULSE 60; RESP 19
--- NOTE | 2018-11-22 19:30 | ERD ---
ER Documentation Chief Complaint Chief Complaint pt is bib family with c/o abd pain and diarrhea since last night HPI Patient is a 67-year-old female with hypertension and atrial fibrillation who presents with abdominal pain. The patient has abdominal pain in the epigastric area which started last night. The pain was worse today. The patient had diarrhea which started 2 hours ago. The patient has had nausea but no vomiting. The patient has had no treatment as of yet and no fevers. The patient's primary doctor is Dr. Abelardo Conte. Upon review of old medical records the patient has multiple visits for complaints of abdominal pain. ROS All systems reviewed and are negative except as per history of present illness. Medications Home Meds Active Scripts Ondansetron (Ondansetron Odt) 4 Mg Tab.rapdis, 4 MG PO Q6H PRN for NAUSEA AND/OR VOMITING, #30 TAB Prov:MERCED JASSO MD 11/22/18 Ibuprofen* (Motrin*) 600 Mg Tab, 600 MG PO Q6H PRN for PAIN AND OR ELEVATED TEMP, #30 TAB Prov:MERCED JASSO MD 11/22/18 Reported Medications Pantoprazole* (Pantoprazole*) 20 Mg Tablet.dr, 20 MG PO DAILY, TAB 11/22/18 Atenolol* (Atenolol*) 50 Mg Tablet, 50 MG PO BID, #60 TAB 11/22/18 Apixaban* (Eliquis*) 5 Mg Tablet, 5 MG PO BID, TAB 11/22/18 Discontinued Reported Medications Furosemide* (Furosemide*) 40 Mg Tablet, 40 MG PO BID, TAB 05/03/18 Furosemide* (Furosemide*) 40 Mg Tablet, 40 MG PO BID, TAB 05/03/18 Potassium Chloride* (Potassium Chloride*) 20 Meq Tablet.er, 20 MEQ PO DAILY, TAB.SA 05/03/18 Atenolol* (Atenolol*) 25 Mg Tablet, 25 MG PO DAILY, #30 TAB 04/29/18 Pantoprazole* (Protonix*) 40 Mg Tablet.dr, 40 MG PO DAILY, TAB 04/29/18 Flecainide Acetate* (Flecainide Acetate*) 50 Mg Tablet, 50 MG PO BID, TAB 04/29/18 Apixaban* (Eliquis*) 5 Mg Tablet, 5 MG PO BID, TAB 04/29/18 Discontinued Scripts Naproxen* (Naproxen*) 500 Mg Tablet, 500 MG PO BID, #20 TAB Prov:TAINA JACOB DO 05/03/18 Hydrocodone/Acetaminophen (Sumner 5-325 Tablet) 1 Each Tablet, 1 EACH PO Q6 PRN for SEVERE PAIN LEVEL 7-10, #14 TAB Prov:TAINA JACOB DO 05/03/18 Allergies Allergies: Coded Allergies: No Known Allergy (Unverified , 11/22/18) PMhx/Soc History of Surgery: No (CARDIAC STENT) Anesthesia Reaction: No Hx Neurological Disorder: No Hx Respiratory Disorders: No Hx Cardiac Disorders: Yes (A-FIB) Hx Psychiatric Problems: No Hx Miscellaneous Medical Probl: Yes (HTN) Hx Alcohol Use: No Hx Substance Use: No Hx Tobacco Use: No Smoking Status: Never smoker FmHx Family History: No diabetes Physical Exam Vitals Vital Signs Date Temp Pulse Resp B/P (MAP) Pulse Ox O2 O2 Flow FiO2 Time Delivery Rate 11/22/18 98.0 60 19 128/62 95 Room Air 19:18 (84) 11/22/18 98.2 61 16 124/68 98 Room Air 18:00 (86) 11/22/18 98.0 75 18 165/65 98 14:41 (98) Physical Exam Const: No acute distress Head: Atraumatic Eyes: Normal Conjunctiva ENT: Normal External Ears, Nose and Mouth. Neck: Full range of motion. No meningismus. Resp: Clear to auscultation bilaterally Cardio: Regular rate and rhythm, no murmurs Abd: Soft, diffuse tenderness to palpation without rebound or guarding Skin: No petechiae or rashes Back: No midline or flank tenderness Ext: No cyanosis, or edema Neur: Awake and alert Psych: Normal Mood and Affect Result Diagram: 11/22/18 1624 11/22/18 1624 Results 24 hrs Laboratory Tests Test 11/22/18 16:24 White Blood Count 10.0 10^3/ul Red Blood Count 4.58 10^6/ul Hemoglobin 14.2 g/dl Hematocrit 41.6 % Mean Corpuscular Volume 90.8 fl Mean Corpuscular Hemoglobin 31.0 pg Mean Corpuscular Hemoglobin Concent 34.1 g/dl Red Cell Distribution Width 12.0 % Platelet Count 277 10^3/UL Mean Platelet Volume 9.0 fl Immature Granulocytes % 0.300 % Neutrophils % 62.0 % Lymphocytes % 26.8 % Monocytes % 9.1 % Eosinophils % 1.2 % Basophils % 0.6 % Nucleated Red Blood Cells % 0.0 /100WBC Immature Granulocytes # 0.030 10^3/ul Neutrophils # 6.2 10^3/ul Lymphocytes # 2.7 10^3/ul Monocytes # 0.9 10^3/ul Eosinophils # 0.1 10^3/ul Basophils # 0.1 10^3/ul Nucleated Red Blood Cells # 0.0 10^3/ul Urine Color STRAW Urine Clarity CLEAR Urine pH 6.0 Urine Specific Crete 1.004 Urine Ketones NEGATIVE mg/dL Urine Nitrite NEGATIVE mg/dL Urine Bilirubin NEGATIVE mg/dL Urine Urobilinogen NEGATIVE mg/dL Urine Leukocyte Esterase TRACE Sandy/ul Urine Microscopic RBC 0 /HPF Urine Microscopic WBC 3 /HPF Urine Squamous Epithelial Cells FEW /HPF Urine Hemoglobin NEGATIVE mg/dL Urine Glucose NEGATIVE mg/dL Urine Total Protein NEGATIVE mg/dl Sodium Level 140 mmol/L Potassium Level 4.4 mmol/L Chloride Level 105 mmol/L Carbon Dioxide Level 28 mmol/L Anion Gap 7 Blood Urea Nitrogen 15 mg/dl Creatinine 0.84 mg/dl Est Glomerular Filtrat Rate mL/min > 60 mL/min Glucose Level 88 mg/dl Calcium Level 10.4 mg/dl Total Bilirubin 0.2 mg/dl Direct Bilirubin 0.00 mg/dl Indirect Bilirubin 0.2 mg/dl Aspartate Amino Transf (AST/SGOT) 30 IU/L Alanine Aminotransferase (ALT/SGPT) 21 IU/L Alkaline Phosphatase 103 IU/L Total Protein 8.4 g/dl Albumin 4.4 g/dl Globulin 4.00 g/dl Albumin/Globulin Ratio 1.10 Lipase 219 U/L Current Medications Medications Dose Sig/Bruce Start Time Status Last (Trade) Ordered Route PRN Stop Time Admin Dose Reason Admin Sodium 1,000 ml @ Q1H STAT 11/22/18 DC 11/22/18 Chloride 1,000 mls/hr IV 16:09 16:44 11/22/18 17:08 Morphine 4 mg ONCE STAT 11/22/18 DC Sulfate IV 16:09 (morphine) 11/22/18 16:36 Ondansetron 4 mg ONCE STAT 11/22/18 DC 11/22/18 HCl (Zofran IV 16:09 16:43 Inj) 11/22/18 16:10 Ketorolac 30 mg ONCE STAT 11/22/18 DC 11/22/18 Tromethamine IV 16:35 16:44 (Toradol) 11/22/18 16:36 Procedures/MDM CT abdomen pelvis negative for surgical process per radiology. Patient is a 67-year-old female who presents with abdominal pain and diarrhea. Laboratory studies were normal. CT scan shows no sign of surgical process. At this point I doubt appendicitis, cholecystitis, pancreatitis, or bowel obstruction. The patient will be discharged but needs to follow-up closely with the primary doctor Dr. Conte within 24 hours. The patient will be given a presc ription for ibuprofen and Zofran. Departure Diagnosis: Primary Impression: Abdominal pain Abdominal location: generalized Qualified Codes: R10.84 - Generalized abdominal pain Condition: Fair Patient Instructions: Abdominal Pain Referrals: ABELARDO CONTE (PCP) Additional Instructions: Llame al doctor MARALPH y marcos juan RAZA PARA DENTRO DE 1-2 AGUIRRE.Dgale a la secretaria que nosotros le instruimos hacer esta raza.Avise o llame si armstrong condicin se empeora antes de la raza. Regresa aqui si peor o no mejor. MERCED JASSO MD Nov 22, 2018 19:30
== END 2018-11-22 19:21 | disposition home or self-care (01) ==
LOC: E/R 14:24
DX: R10.13 Epigastric pain (principal); I10 Essential (primary) hypertension; R11.0 Nausea; Z98.61 Coronary angioplasty status
CPT/HCPCS: 36415; 74176; 80053; 81001; 83690; 85025; 96374; 96375; 99285; J1885; J2405; J7030

== ENCOUNTER 2019-01-12 19:01 | Inpatient (IN) | payer OTHER ==
[~2019-01-12] VITALS: Ht 157.5 cm; Wt 78.7 kg
[~2019-01-12 19:01] MED LIST changes: -ATEN-51 PO; +ATEN50TA PO; -FLEC50TA PO; -FURO40TA4 PO; -HYDR-4011 PO; +IBUP-1542 PO; -NAPR-688 PO; +ONDA4TAB14 PO; +PANT20TA3 PO; -PANT40TA3 PO; -POTA20TA96 PO
[2019-01-12] MEDS ORDERED: METOPROLOL 50 MG TAB PO STA (19:14)
[2019-01-12] MEDS ORDERED: ACETAMINOPHEN 325 MG TAB PO PRN ×2 (20:30→21:00)
[2019-01-12] MEDS ORDERED: ONDANSETRON 4 MG INJ IV PRN (20:30)
[2019-01-12] MEDS ORDERED: SOD CHLORIDE 0.9% 1,000 ML IV STA (20:56)
[2019-01-12] MEDS: METOPROLOL 5 MG INJ IV SCH (20:59)
[2019-01-12] MEDS ORDERED: MAGNESIUM SULFATE 2 GM/50 ML 50 ML IVPB ONE (21:00)
[2019-01-12] MEDS ORDERED: DOCUSATE SODIUM 100 MG CAP PO PRN (21:00)
[2019-01-12] MEDS ORDERED: NACL 0.9% 3 ML SYG IV SCH (21:00)
[2019-01-12] MEDS ORDERED: BISACODYL (EC) 5 MG TAB PO PRN (21:00)
[2019-01-12] MEDS ORDERED: NITROGLYCERIN (SL) 0.4 MG TAB SL PRN (21:00)
[2019-01-12] MEDS ORDERED: ONDANSETRON 4 MG TAB PO PRN (21:00)
--- NOTE | 2019-01-12 21:33 | ERD ---
ER Documentation Chief Complaint Chief Complaint PALPITATIONS X1 MONTH ON/OFF; WORSE 2DAYS AGO, NO CP, NO SOB; HX OF A-FIB HPI Patient is a 68-year-old female with a history of hypertension and A. fib who presents with palpitations. She has a history of the same since 2008. She said that her heart was beating "very fast". She currently takes atenolol and has been taking it. She said that her symptoms this time started today. Her primary doctor is Dr. Conte. 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 ROS All systems reviewed and are negative except as per history of present illness. Medications Home Meds Active Scripts Ondansetron (Ondansetron Odt) 4 Mg Tab.rapdis, 4 MG PO Q6H PRN for NAUSEA AND/OR VOMITING, #30 TAB Prov:MERCED JASSO MD 11/22/18 Ibuprofen* (Motrin*) 600 Mg Tab, 600 MG PO Q6H PRN for PAIN AND OR ELEVATED TEMP, #30 TAB Prov:MERCED JASSO MD 11/22/18 Reported Medications Pantoprazole* (Pantoprazole*) 20 Mg Tablet.dr, 20 MG PO DAILY, TAB 11/22/18 Atenolol* (Atenolol*) 50 Mg Tablet, 50 MG PO BID, #60 TAB 11/22/18 Apixaban* (Eliquis*) 5 Mg Tablet, 5 MG PO BID, TAB 11/22/18 Allergies Allergies: Coded Allergies: No Known Allergy (Unverified , 11/22/18) PMhx/Soc History of Surgery: No (CARDIAC STENT) Anesthesia Reaction: No Hx Neurological Disorder: No Hx Respiratory Disorders: No Hx Cardiac Disorders: Yes (A-FIB) Hx Psychiatric Problems: No Hx Miscellaneous Medical Probl: Yes (HTN) Hx Alcohol Use: No Hx Substance Use: No Hx Tobacco Use: No FmHx Family History: No diabetes Physical Exam Vitals Vital Signs Date Temp Pulse Resp B/P (MAP) Pulse Ox O2 O2 Flow FiO2 Time Delivery Rate 01/12/19 98.2 121 18 132/79 98 19:02 (96) Physical Exam Const: No acute distress Head: Atraumatic Eyes: Normal Conjunctiva ENT: Normal External Ears, Nose and Mouth. Neck: Full range of motion. No meningismus. Resp: Clear to auscultation bilaterally Cardio: Irregular and rapid rate Abd: Soft, non tender, non distended. Normal bowel sounds Skin: No petechiae or rashes Back: No midline or flank tenderness Ext: No cyanosis, or edema Neur: Awake and alert Psych: Normal Mood and Affect Result Diagram: 01/12/19192201/12/191922 Results 24 hrs Laboratory Tests Test 01/12/19 19:23 White Blood Count 7.4 10^3/ul Red Blood Count 4.62 10^6/ul Hemoglobin 14.0 g/dl Hematocrit 41.9 % Mean Corpuscular Volume 90.7 fl Mean Corpuscular Hemoglobin 30.3 pg Mean Corpuscular Hemoglobin Concent 33.4 g/dl Red Cell Distribution Width 12.3 % Platelet Count 286 10^3/UL Mean Platelet Volume 9.1 fl Immature Granulocytes % 0.100 % Neutrophils % 41.8 % Lymphocytes % 43.5 % Monocytes % 11.8 % Eosinophils % 2.0 % Basophils % 0.8 % Nucleated Red Blood Cells % 0.0 /100WBC Immature Granulocytes # 0.010 10^3/ul Neutrophils # 3.1 10^3/ul Lymphocytes # 3.2 10^3/ul Monocytes # 0.9 10^3/ul Eosinophils # 0.2 10^3/ul Basophils # 0.1 10^3/ul Nucleated Red Blood Cells # 0.0 10^3/ul Sodium Level 142 mmol/L Potassium Level 4.0 mmol/L Chloride Level 108 mmol/L Carbon Dioxide Level 26 mmol/L Anion Gap 8 Blood Urea Nitrogen 17 mg/dl Creatinine 0.82 mg/dl Est Glomerular Filtrat Rate mL/min > 60 mL/min Glucose Level 103 mg/dl Calcium Level 9.4 mg/dl Magnesium Level 2.1 mg/dl Troponin I < 0.012 ng/ml Current Medications Medications Dose Sig/Bruce Start Time Status Last (Trade) Ordered Route PRN Stop Time Admin Dose Reason Admin Metoprolol 5 mg Q5M IV 01/12/19 DC 01/12/19 Tartrate 19:30 20:59 (Lopressor) 01/12/19 19:41 Metoprolol 50 mg ONCE STAT 01/12/19 DC 01/12/19 Tartrate PO 19:14 20:59 (Lopressor) 01/12/19 19:16 Ondansetron 4 mg ER BRIDGE 01/12/19 HCl (Zofran PRN IV 20:30 Inj) NAUSEA/VOMITI 01/13/19 20:29 NG 650 mg ER BRIDGE 01/12/19 Acetaminophen PRN PO 20:30 (Tylenol .MILD PAIN 01/13/19 20:29 Tab) 1-3 OR TEMP Apixaban 5 mg BID PO 01/12/19 UNV (Eliquis) 21:00 Atenolol 50 mg BID PO 01/12/19 UNV (Tenormin) 21:00 20 mg DAILY PO 01/13/19 UNV Pantoprazole 09:00 Sodium (Protonix) IV Flush 3 ml PER 01/12/19 UNV (NS 3 ml) PROTOCOL IV 21:00 Ondansetron 4 mg Q6H PRN 01/12/19 UNV HCl (Zofran PO 21:00 Tab) NAUSEA/VOMITI NG 1 tab Q5M PRN 01/12/19 UNV Nitroglycerin SL .CHEST 21:00 PAIN (Nitroglyceri n (Sl Tab) 0.4 Mg) 650 mg Q6H PRN 01/12/19 UNV Acetaminophen PO .PAIN 1-3 21:00 (Tylenol OR TEMP Tab) Docusate 100 mg Q12H PRN 01/12/19 UNV Sodium PO 21:00 (Colace) .CONSTIPATION Bisacodyl 5 mg DAILY PRN 01/12/19 UNV (Dulcolax) PO 21:00 .CONSTIPATION Sodium 1,000 ml @ Q1H STAT 01/12/19 01/12/19 Chloride 1,000 mls/hr IV 20:56 20:59 01/12/19 21:55 Magnesium 50 ml @ 25 ONCE ONCE 01/12/19 Sulfate mls/hr IVPB 21:00 01/12/19 22:59 Procedures/MDM EKG read by me: Rate/Rhythm: Rapid atrial fibrillation Intervals: Normal Impression: Rapid atrial fibrillation without ischemia Chest x-ray read by radiology. Patient is a 68-year-old female who presents with rapid atrial fibrillation. The patient was given IV and p.o. metoprolol. The patient was given 1 L of normal saline for fluid resuscitation. Laboratory studies were basically normal. The patient will be admitted to the care of Dr. Myers to a telemetry inpatient bed. Critical Care: Time: 35 minutes excluding all billable procedures. Treatments/Evaluations: Close monitoring and treatment of unstable vital signs, cardiorespiratory, and neurologic status, while maintaining tight balance of fluid, respiratory, and cardiac interventions. Departure Diagnosis: Primary Impression: Rapid atrial fibrillation Additional Impression: Palpitations Condition: MERCED Bowen MD Jan 12, 2019 21:32
[2019-01-12 22:10] VITALS: BP 152/96; PULSE 112; RESP 18
[2019-01-12 22:12] VITALS: PULSE 70
[2019-01-12] MEDS: APIXABAN 5 MG TABLET PO SCH (22:29)
[2019-01-12] MEDS: ATENOLOL 50 MG TAB PO SCH (22:31)
[2019-01-12 22:51] VITALS: PULSE 70
--- NOTE | 2019-01-12 23:08 | HP ---
Date/Time of Note Date/Time of Note DATE: 01/12/19 TIME: 23:05 Assessment/Plan VTE Prophylaxis SCD applied (from Nsg): Yes Pharmacological prophylaxis: NA/contraindicated Pharm contraindication: low risk/ambulating Lines/Catheters IV Catheter Type (from Nrsg): Saline Lock Assessment/Plan Hospital Course #1 Rapid A. fib with RVR: Did receive metoprolol p.o. and IV in the emergency department. She was also initiated on her home atenolol which converted her back to normal sinus rhythm. Patient reports that she has tried multiple medications in the past including flecainide, propafenone, atenolol. She also has a left-sided cardiac pacing device. At the current time we will continue h er current meds. Will consult cardiology Dr. Kim for further treatment strategy. We will check an echocardiogram and TSH. #2 cardiac pacing device: A paced #3 CAD: Stable cardiology consulted #4 hypertension: New monitor #5 GERD: We will continue Protonix, H2 curry but #6 history of erosive esophagitis: We will continue Protonix #7 DVT and GI prophylaxis: Patient currently on Eliquis, Protonix Further treatment strategy will be implemented as per the clinical course. Result Diagram: 01/12/19192201/12/193 Results 24hrs Laboratory Tests Test 01/12/19 19:23 White Blood Count 7.4 # Red Blood Count 4.62 Hemoglobin 14.0 Hematocrit 41.9 Mean Corpuscular Volume 90.7 Mean Corpuscular Hemoglobin 30.3 Mean Corpuscular Hemoglobin Concent 33.4 Red Cell Distribution Width 12.3 Platelet Count 286 Mean Platelet Volume 9.1 Immature Granulocytes % 0.100 Neutrophils % 41.8 Lymphocytes % 43.5 Monocytes % 11.8 H Eosinophils % 2.0 Basophils % 0.8 Nucleated Red Blood Cells % 0.0 Immature Granulocytes # 0.010 Neutrophils # 3.1 Lymphocytes # 3.2 H Monocytes # 0.9 Eosinophils # 0.2 Basophils # 0.1 Nucleated Red Blood Cells # 0.0 Sodium Level 142 Potassium Level 4.0 Chloride Level 108 Carbon Dioxide Level 26 Anion Gap 8 Blood Urea Nitrogen 17 Creatinine 0.82 Est Glomerular Filtrat Rate mL/min > 60 Glucose Level 103 Calcium Level 9.4 Magnesium Level 2.1 Troponin I < 0.012 HPI/ROS Admit Date/Time Admit Date/Time Jan 12, 2019 at 20:26 Hx of Present Illness Chief complaint: Palpitations This is a 68-year-old female with a history of paroxysmal. Atrial fibrillation and hypertension who presented to the emergency department complaining of palpitations. Patient has a long history of atrial fibrillation. When she arrived in the emergency department she was noted to be in rapid A. fib with RVR. She was subsequently given metoprolol p.o. and IV which did provide rate control with a heart rate less than 100. She states that she has been on multiple medications in the past including flecainide, propafenone, different dosages of atenolol however she states that these medications do not seem to help her, she always states that she feels like she has palpitations and they do not make her feel good. 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 She does report though that she would like a second opinion and a new power generation plant operator. She is currently on Eliquis. Patient was initiated on her home atenolol during her admission orders. Allergies: NKDA Medications: Ranitidine Eliquis 5 mg p.o. twice daily Atenolol 50 mg p.o. twice daily Pantoprazole daily ROS Const: As per HPI Eyes : No pain discharge or redness or change in visual acuity ENT: No pain, sore throat, congestion, congestion, dysphagia or discharge Respiratory: No shortness of breath, cough, sputum, wheezing, or pleuritic pain Cardiovascular: As per HPI GI : no change in appetite, abdominal pain, nausea, vomiting, diarrhea, constipation, or change in the color his stool Genitourinary: No dysuria, hematuria, flank pain , discharge or CVA tenderness Musculoskeletal: No joint pain, back pain, neck pain, restricted range of motion in neck or joints Skin: No rash, bruising or hives Neuro: No headache, dizziness, syncope, seizure, focal weakness Endocrine: No polyuria, polydipsia, temperature intolerance Psych: No hallucination, depression, anxiety or suicidal ideation PMH/Family/Social Past Medical History History of proximal atrial fibrillation, CAD, hypertension, GERD, history of erosive esophagitis Medications Current Medications Ondansetron HCl (Zofran Inj) 4 mg ER BRIDGE PRN IV NAUSEA/VOMITING; Start 01/12/19 at 20:30; Stop 01/13/19 at 20:29 Acetaminophen (Tylenol Tab) 650 mg ER BRIDGE PRN PO .MILD PAIN 1-3 OR TEMP; Start 01/12/19 at 20:30; Stop 01/13/19 at 20:29 Apixaban (Eliquis) 5 mg BID PO Last administered on 01/12/19at 22:29; Admin Dose 5 MG; Start 01/12/19 at 21:00 Atenolol (Tenormin) 50 mg BID PO Last administered on 01/12/19at 22:31; Admin Dose 50 MG; Start 01/12/19 at 21:00 Pantoprazole Sodium (Protonix) 20 mg DAILY@0600 PO ; Start 01/13/19 at 06:00 IV Flush (NS 3 ml) 3 ml PER PROTOCOL IV ; Start 01/12/19 at 21:00 Ondansetron HCl (Zofran Tab) 4 mg Q6H PRN PO NAUSEA/VOMITING; Start 01/12/19 at 21:00 Nitroglycerin (Nitroglycerin (Sl Tab) 0.4 Mg) 1 tab Q5M PRN SL .CHEST PAIN; Start 01/12/19 at 21:00 Acetaminophen (Tylenol Tab) 650 mg Q6H PRN PO .PAIN 1-3 OR TEMP; Start 01/12/19 at 21:00 Docusate Sodium (Colace) 100 mg Q12H PRN PO .CONSTIPATION; Start 01/12/19 at 21:00 Bisacodyl (Dulcolax) 5 mg DAILY PRN PO .CONSTIPATION; Start 01/12/19 at 21:00 Coded Allergies: No Known Allergy (Unverified , 01/12/19) Past Surgical History cholecystectomy, hiatal hernia Family History Significant Family History: no pertinent family hx Social History She smoked a pack a day for about 17 years, but she quit many years ago. Drinks alcohol occasionally. Denied a history of illicit drug use Alcohol Use: occasionally Smoking Status: Former smoker Exam/Review of Systems Vital Signs Vitals Vital Signs Date Temp Pulse Resp B/P (MAP) Pulse Ox O2 O2 Flow FiO2 Time Delivery Rate 01/12/19 70 22:51 01/12/19 97.7 18 152/96 100 Room Air 22:10 (114) Nasal Cannula Exam Exam General: Patient is a pleasant female currently in bed in no acute distress HEENT: Atraumatic, normocephalic. The pupils are equal, round and reactive. Extraocular motor are intact Neck: Supple with full range of motion. No rigidity or meningismus Chest: Nontender Lungs: Clear to auscultation bilaterally no crackles rales or wheezing Heart: Initially in rapid A. fib with RVR, currently converted to normal sinus rhythm. Abdomen: Soft , nontender, nondistended , bowel sounds are present. No guarding no rebound tenderness , No masses or organomegaly. No costovertebral temporal angle mass Extremities: Normal to inspection, no edema no cyanosis Neurologic: Normal mental status, speech normal, cranial nerves II through XII are intact, motor and sensory are intact, Additional Comments EKG: Rate/Rhythm: Rapid atrial fibrillation Intervals: Normal Impression: Rapid atrial fibrillation without ischemia PROCEDURE: XR Chest. CLINICAL INDICATION: chest pain TECHNIQUE: Single AP view of the chest was obtained COMPARISON: 10/25/2016 FINDINGS: Left-sided cardiac pacing device has been placed with leads extending into the right atrium and ventricle. The heart and mediastinum are within normal limits. The pulmonary vasculature are unremarkable. The aorta demonstrates atherosclerotic calcifications. There is no lung consolidation, pleural effusion or pneumothorax. Degenerative changes are seen within the thoracic spine and shoulders. There is no acute osseous abnormality. IMPRESSION: No acute disease. Left-sided cardiac pacing device is present. RPTAT: AA .Vianca Mcdaniels MD, MD Date Time Electronically viewed and signed by .Vianca Mcdaniels MD, MD on 01/12/2019 19:59 .J/ CC: MERCED JASSO MD [id number] NATASHA ALVAREZ Jan 12, 2019 23:08
[2019-01-12] MEDS ORDERED: RANI300T PO (23:22)
[2019-01-12 23:43] VITALS: Ht 157.5 cm; Wt 78.7 kg
[2019-01-13] VITALS (8 sets, daily range): BP systolic 109–130; BP diastolic 55–70; PULSE 60–69; RESP 18–19
[2019-01-13] MEDS ORDERED: PANTOPRAZOLE SODIUM 20 MG TABEC PO SCH (06:00)
[2019-01-13] MEDS: METOPROLOL 5 MG INJ IV SCH (06:10)
[2019-01-13] MEDS: APIXABAN 5 MG TABLET PO SCH (08:30)
[2019-01-13] MEDS: ATENOLOL 50 MG TAB PO SCH (08:32)
--- NOTE | 2019-01-13 16:27 | PDOCDIS ---
Discharge Instructions DIAGNOSIS Discharge Diagnosis Paroxysmal atrial fibrillation CONDITION [id number] Patient Condition: [id number] Good HOME CARE INSTRUCTIONS: [id number] Diet Instructions: [id number] Low Fat /Cholesterol ACTIVITY: [id number] Activity Restrictions: [id number] No Restrictions FOLLOW UP/APPOINTMENTS Follow-up Plan 1. Take all medications as prescribed. Do not stop taking your cardiac medications with talking to your wildlife removal specialist. 2. Continue to see your wildlife removal specialist as scheduled. 3. For chest pain, pressure, or palpitations that do not go away with rest, return to the emergency room. SAL YARBROUGH MD Jan 13, 2019 16:27
--- NOTE | 2019-01-13 16:31 | DS ---
Date/Time of Note Date/Time of Note DATE: 01/13/19 TIME: 16:28 Discharge Summary Admission/Discharge Info Admit Date/Time Jan 12, 2019 at 20:26 Discharge Date/Time January 13, 2019 Discharge Diagnosis Paroxysmal atrial fibrillation Patient Condition: Good Hx of Present Illness Chief complaint: Palpitations This is a 68-year-old female with a history of paroxysmal. Atrial fibrillation and hypertension who presented to the emergency department complaining of palpitations. Patient has a long history of atrial fibrillation. When she arrived in the emergency department she was noted to be in rapid A. fib with RVR. She was subsequently given metoprolol p.o. and IV which did provide rate control with a heart rate less than 100. She states that she has been on multiple medications in the past including flecainide, propafenone, different dosages of atenolol however she states that these medications do not seem to help her, she always states that she feels like she has palpitations and they do not make her feel good. Of note, the patient says she was on flecainide until t his past Wednesday but stopped it because she developed a nosebleed. She follows Dr. Fontenot's cardiology group. She does report though that she would like a second opinion and a new bench assembly inspector. She is currently on Eliquis. Patient was initiated on her home atenolol during her admission orders. Allergies: NKDA Medications: Ranitidine Eliquis 5 mg p.o. twice daily Atenolol 50 mg p.o. twice daily Pantoprazole daily Hospital Course The patient spontaneously converted back to normal sinus soon after restarting her home medications. She was monitored overnight on telemetry and remained in paced atrial rhythm with rate 60s. Symptoms resolved. She was instructed to continue her flecainide along with her other prescribed medications when she returns home. Home Meds Reported Medications Ranitidine Hcl* (Ranitidine Hcl*) 300 Mg Tablet, 300 MG PO QHS for 90 Days, #90 TK 1 T PO QHS PRN 01/12/19 Pantoprazole* (Pantoprazole*) 20 Mg Tablet., 20 MG PO DAILY, TAB 11/22/18 Atenolol* (Atenolol*) 50 Mg Tablet, 50 MG PO BID, #60 TAB 4/23/19 Apixaban* (Eliquis*) 5 Mg Tablet, 5 MG PO BID, TAB 11/22/18 Discontinued Scripts Ondansetron (Ondansetron Odt) 4 Mg Tab.rapdis, 4 MG PO Q6H PRN for NAUSEA AND/OR VOMITING, #30 TAB Prov:MERCED JASSO MD 11/22/18 Ibuprofen* (Motrin*) 600 Mg Tab, 600 MG PO Q6H PRN for PAIN AND OR ELEVATED TEMP, #30 TAB Prov:MERCED JASSO MD 11/22/18 Follow-up Plan 1. Take all medications as prescribed. Do not stop taking your cardiac medications with talking to your bench assembly inspector. 2. Continue to see your bench assembly inspector as scheduled. 3. For chest pain, pressure, or palpitations that do not go away with rest, return to the emergency room. Primary Care Provider Abelardo Conte Time spent on discharge: > 30 minutes Pending Labs Laboratory Tests Test 01/12/19 19:23 01/13/19 00:28 01/13/19 07:26 01/13/19 07:27 White Blood 7.4 7.1 Count 10^3/ul (4.8-10 10^3/ul (4.8-1 .8) 0.8) Red Blood 4.62 3.97 Count 10^6/ul (4.20-5 10^6/ul (4.20- .40) 5.40) Hemoglobin 14.0 12.1 g/dl (12.0-16.0 g/dl (12.0-16. ) 0) Hematocrit 41.9 36.3 % (37.0-47.0) % (37.0-47.0) Mean 90.7 91.4 Corpuscular fl (82.0-101.0) fl (82.0-101.0 Volume ) Mean 30.3 30.5 Corpuscular pg (29.0-33.0) pg (29.0-33.0) Hemoglobin Mean 33.4 33.3 Corpuscular g/dl (32.0-37.0 g/dl (32.0-37. Hemoglobin Conc ) 0) ent Red Cell 12.3 12.2 Distribution % (11.5-14.5) % (11.5-14.5) Width Platelet Count 286 243 10^3/UL (140-41 10^3/UL (140-4 5) 15) Mean Platelet 9.1 9.3 Volume fl (7.4-10.4) fl (7.4-10.4) Immature 0.100 0.100 Granulocytes % % (0.001-0.429) % (0.001-0.429 ) Neutrophils % 41.8 51.6 % (39.0-77.0) % (39.0-77.0) Lymphocytes % 43.5 37.0 % (15.0-51.0) % (15.0-51.0) Monocytes % 11.8 9.0 % (0.0-11.0) % (0.0-11.0) Eosinophils % 2.0 % (0.0-7.0) 1.7 % (0.0-7.0) Basophils % 0.8 % (0.0-2.0) 0.6 % (0.0-2.0) Nucleated Red 0.0 0.0 Blood Cells % /100WBC (0.0-0. /100WBC (0.0-0 0) .0) Immature 0.010 0.010 Granulocytes # 10^3/ul (0.0-0. 10^3/ul (0.0-0 031) .031) Neutrophils # 3.1 3.7 10^3/ul (1.6-7. 10^3/ul (1.6-7 5) .5) Lymphocytes # 3.2 2.6 10^3/ul (0.8-2. 10^3/ul (0.8-2 9) .9) Monocytes # 0.9 0.6 10^3/ul (0.3-0. 10^3/ul (0.3-0 9) .9) Eosinophils # 0.2 0.1 10^3/ul (0.0-0. 10^3/ul (0.0-0 5) .5) Basophils # 0.1 0.0 10^3/ul (0.0-0. 10^3/ul (0.0-0 1) .1) Nucleated Red 0.0 0.0 Blood Cells # 10^3/ul (0.0-0. 10^3/ul (0.0-0 0) .0) Sodium Level 142 141 mmol/L (135-144 mmol/L (135-14 ) 4) Potassium 4.0 3.9 Level mmol/L (3.5-5.1 mmol/L (3.5-5. ) 1) Chloride Level 108 110 mmol/L (97-110) mmol/L (97-110 ) Carbon Dioxide 26 24 Level mmol/L (21-31) mmol/L (21-31) Anion Gap 8 (5-13) 7 (5-13) Blood Urea 17 mg/dl (7-20) 12 Nitrogen mg/dl (7-20) Creatinine 0.82 0.73 mg/dl (0.44-1.0 mg/dl (0.44-1. 0) 00) Est Glomerular > 60 > 60 Filtrat mL/min (>60) mL/min (>60) Rate mL/min Glucose Level 103 117 mg/dl (70-220) mg/dl (70-220) Calcium Level 9.4 8.9 mg/dl (8.4-10.2 mg/dl (8.4-10. ) 2) Magnesium 2.1 2.2 Level mg/dl (1.7-2.5) mg/dl (1.7-2.5 ) Troponin I < 0.012 < 0.012 < 0.012 ng/ml (0.000-0. ng/ml (0.000-0 ng/ml (0.000-0 120) .120) .120) Creatine 40 37 Kinase IU/L (23-200) IU/L (23-200) Creatine Kinase 0.9 0.7 Index Creatinine 0.35 0.26 Kinase MB ng/ml (0.0-2.4 ng/ml (0.0-2.4 (Mass) ) ) Hemoglobin A1c 5.3 % (0-5.9) Total 0.5 Bilirubin mg/dl (0.2-1.3 ) Direct 0.00 Bilirubin mg/dl (0.00-0. 20) Indirect 0.5 Bilirubin mg/dl (0-1.1) Aspartate Amino 26 Transf (AST/SGO IU/L (15-46) T) Alanine 28 Aminotransferas IU/L (13-69) e (ALT/SGPT) Alkaline 100 Phosphatase IU/L (42-121) Total Protein 6.8 g/dl (6.1-8.1) Albumin 3.7 g/dl (3.3-4.9) Globulin 3.10 g/dl (1.3-3.2) Albumin/Globuli 1.19 n Ratio Triglycerides 196 Level mg/dl (0-149) Cholesterol 157 Level mg/dl (100-200 ) LDL 77 mg/dl Cholesterol, Calculated HDL 41 Cholesterol mg/dl (33-92) Cholesterol/HDL 3.8 RATIO Ratio Thyroid 1.950 Stimulating MIU/L (0.465-4 Hormone (TSH) .680) SAL YARBROUGH MD Jan 13, 2019 16:31
--- NOTE | 2019-01-13 18:30 | RADRPT ---
Echocardiogram Report Patient Name: Sophia URIBEnt ID: [id number] : 1951 (68y 1m)Study Date: 01/13/2019 8:53:41 AM Gender: FAccession #: [id number] Tech: Alberto Jones [facility] Location: [facility] Ref.Physician: NATASHA ALVAREZ Height(Cm): BSA: Weight(Kg): Quality: AdequateOrder Physician: NATASHA ALVAREZ Account #: Procedures: Echocardiographic Report: Transthoracic echocardiogram with complete 2D, M-Mode, and doppler examination. Indications: Atrial Fibrillation. Measurements: 2D/M Mode Doppler Measurement Value Normal Range Measurement Value Normal Range LVIDd 2D 4.3 [ 3.8 - 5.2 ] cm AV Peak Toby 1.1 [ 100.0 - 170.0 ] cm/sec LVIDs 2D 2.7 [ 2.2 - 3.5 ] cm AV Peak PG 5.0 [ 2.0 - 9.0 ] mmHg LVPWd 2D 1.5 [ 0.6 - 0.9 ] cm LVOT Peak Toby 0.9 [ 70.0 - 110.0 ] cm/sec IVSd 2D 1.6 [ 0.6 - 0.9 ] cm LVOT Peak PG 3.0 [ 2.0 - 6.0 ] mmHg AoR Diam 2D 2.8 [ 2.3 - 3.1 ] cm MV E Peak Toby 1.1 [ 60.0 - 130.0 ] cm/sec EDV 2D 84.4 [ 46.0 - 106.0 ] ml MV A Peak Toby 0.5 [ 100.0 - 120.0 ] cm/sec ESV 2D 26.8 [ 14.0 - 42.0 ] ml MV E/A 2.3 [ 0.8 - 1.5 ] ratio EF 2D 68.2 [ 54.0 - 74.0 ] percent MV Decel Time 254 [ 104 - 258 ] msec LA Dimen 2D 3.7 [ 2.7 - 3.8 ] cm Lat E` Toby 0.1 [ 10.0 - 15.0 ] cm/sec Lateral E/E` 9.4 [ 1.0 - 2.0 ] ratio Med E` Toby 0.1 cm/sec MV E/A 2.3 [ 0.8 - 1.5 ] ratio TR Peak Toby 3.3 [ 100.0 - 280.0 ] cm/sec TR Peak PG 44.0 mmHg RVSP 47.0 [ 10.0 - 36.0 ] mmHg Findings: Left Ventricle: Normal left ventricular systolic function. Normal left ventricular cavity size. Moderate concentric left ventricular hypertrophy. Ejection fraction is visually estimated at 60 %. Tissue Doppler/Mitral Doppler indices are consistent with pseudonormalization with mildly elevated left atrial pressure (Stage II diastolic dysfunction). Right Ventricle: Normal right ventricular size. Normal right ventricular systolic function. Left Atrium: The left atrium is normal in size. Right Atrium: The right atrium is normal in size. Mitral Valve: Mild mitral leaflet calcification. Mild mitral annular calcification. Trace mitral regurgitation. Aortic Valve: No significant aortic stenosis or insufficiency. Aortic cusps appear mildly calcified. Tricuspid Valve: Normal appearance of the tricuspid valve. The estimated Peak RVSP is 47 mmHg. There is moderate tricuspid regurgitation. Pericardium: Normal pericardium with no significant pericardial effusion. There is an anterior echo free space consistent with epicardial fat pad. Aorta: Normal aortic root. IVC: Normal size and normal respiratory collapse consistent with normal right atrial pressure. Conclusions: Normal left ventricular systolic function. Normal left ventricular cavity size. Moderate concentric left ventricular hypertrophy. Ejection fraction is visually estimated at 60 %. Tissue Doppler/Mitral Doppler indices are consistent with pseudonormalization with mildly elevated left atrial pressure (Stage II diastolic dysfunction). Mild mitral leaflet calcification. Mild mitral annular calcification. Trace mitral regurgitation. Normal appearance of the tricuspid valve. The estimated Peak RVSP is 47 mmHg. There is moderate tricuspid regurgitation. Electronically Signed By: Rufus Kim 2019-01-13 18:29:16 PDT
[2019-01-13] MEDS ORDERED: RANITIDINE 150 MG TAB PO SCH (21:00)
--- NOTE | 2019-01-14 09:00 | CONS ---
DATE OF ADMISSION: 01/12/2019 DATE OF CONSULTATION: 01/13/2019 REASON FOR CONSULTATION: Paroxysmal atrial fibrillation with rapid ventricular response. REQUESTING PHYSICIAN: Sal Bell MD, from the hospitalist service. HISTORY OF PRESENT ILLNESS: Ms. Wells is a 68-year-old female with a history of paroxysmal atrial fibrillation and hypertension who initially presented to the ER for complaints of palpitations ongoin g since earlier in the day. Upon arrival in the emergency department, temperature of 98.2, blood pre ssure 133/75, pulse 120, respirations 18, saturation 98%. Patient denied associated chest pain or si gnificant shortness of breath, dizziness. The patient's labs notable for white count of 7.4, hemoglo bin 14.0, platelet count 286, a sodium of 142, potassium 4.0, creatinine 0.8, BUN 17. Troponin negat carli. Patient underwent a chest x-ray that revealed no acute disease. Left-sided cardiac pacing emily ce. The patient's electrocardiogram revealed atrial fibrillation, rate of 130, normal axis, normal i ntervals with nonspecific ST abnormalities diffusely. The patient subsequently admitted to the floor after being treated with IV metoprolol and IV fluid hydration. Since admit to floor, patient has no w converted to sinus rhythm with episodes of atrial pacing at this time. The patient has been contin ued on baseline atenolol. The patient denies ongoing chest pain, shortness breath or any ongoing pal pitations with ongoing sinus rhythm and atrial pacing at times. The patient denies ongoing palpitati ons. PAST MEDICAL HISTORY: As above in HPI. MEDICATIONS CURRENTLY IN HOSPITAL 1. Zantac 300 mg every evening. 2. Protonix 20 mg daily. 3. Eliquis 5 mg b.i.d. 4. Atenolol 50 mg b.i.d. 5. Tylenol p.r.n. 6. Colace p.r.n. 7. Dulcolax p.r.n. 8. Zofran, p.r.n. ALLERGIES: NO KNOWN DRUG ALLERGIES. SOCIAL HISTORY: No current tobacco, ETOH or illicit drug use. FAMILY HISTORY: No history of sudden cardiac or early CAD. REVIEW OF SYSTEMS: As above in HPI. CONSTITUTIONAL: No fevers, chills. PULMONARY: No current shortness of breath. CARDIOVASCULAR: Paroxysmal atrial fibrillation with rapid ventricular response. GASTROINTESTINAL: No vomiting. GENITOURINARY: No hematuria. MUSCULOSKELETAL: Degenerative joint disease. PSYCHIATRIC: The patient denies depression. NEUROLOGIC: No documented history of CVA. ENDOCRINE: No documented history of diabetes mellitus. PHYSICAL EXAMINATION: VITAL SIGNS: Temperature of 97.8, blood pressure 117/55, pulse 60, respiration 19, saturation 99%. GENERAL: The patient is alert, awake, no acute distress. NECK: JVP approximately 8 to 9 cm of water. CHEST: Fair air movement throughout. HEART: Regular rate and rhythm. Normal S1, S2, I/ systolic murmur, nondisplaced PMI. ABDOMEN: Positive bowel sounds, soft. EXTREMITIES: No significant pitting edema, 1+ pulses bilateral posterior tibial. LABORATORY DATA: Most recently from today, sodium 141, potassium 3.9, creatinine 0.7, BUN 12. LDL o f 77, HDL 41. TSH 1.95. Troponin negative x2. White blood cell count 7.1, hemoglobin 12.1, platele t count 243. IMAGING STUDIES: Chest x-ray from the revealing no acute disease, left-sided cardiac pacemaker present. ELECTROCARDIOGRAM: As above in HPI. No further electrograms for my review at this time. IMPRESSION: 1. Paroxysmal atrial fibrillation with rapid ventricular response, currently in sinus rhythm. 2. History of permanent pacemaker with no signs of dysfunction at this time. 3. History of hypertension, recently controlled on current regimen. 4. History of gastroesophageal reflux disease. 5. History of coronary artery disease with negative troponins x2. No chest pain and no in the setting of rapid atrial fibrillation. 5. History of esophagitis. RECOMMENDATIONS: 1. At this time, we would maintain patient on telemetry monitoring. 2. Continue the patient's baseline atenolol. 3. Continue the patient's baseline Eliquis for prevention of thromboembolic complications of atrial fibrillation. 4. We will follow up patient's 2D echo that has been ordered. 5. Patient has been tried named as propafenone, flecainide without good success and therefore c ould be considered for alternative antiarrhythmics such as sotalol or amiodarone after assessing the patient's ejection fraction by echo. The patient does have routine followup with an outpatient elect rophysiologist , Dr. Fontenot and therefore will likely upon his decision for initiation of further an tiarrhythmics and also ensure the patient has already been tried on either of these two. 6. The patient does remain stable in sinus rhythm on beta blockers and Eliquis. The patient would b e reasonable for discharge with further outpatient followup with primary teaching manager. Thank you for allowing me to take part in the care of this patient. I will continue to follow closel y with you with further recommendations made as the patient progresses through his inpatient hospital clinical course. Dictated By: SAL MIGUEL/ARACELI Conf#: [id number] DID#: [id number] CC: NATASHA ALVAREZ MD; LUCY FONTENOT MD; SAL BELL MD;*[facility]*
== END 2019-01-13 18:43 | disposition home or self-care (01) | DRG 310 ==
LOC: E/R 19:01 → TEL 20:26
PROVIDERS: ADMIT Family Medicine; ATTEND Internal Medicine
DX: I48.0 Paroxysmal atrial fibrillation (principal); I10 Essential (primary) hypertension; I25.10 Atherosclerotic heart disease of native coronary artery without angina pectoris; K21.9 Gastro-esophageal reflux disease without esophagitis; Z79.01 Long term (current) use of anticoagulants; Z87.891 Personal history of nicotine dependence; Z95.0 Presence of cardiac pacemaker
CPT/HCPCS: 36415; 71045; 80048; 80053; 80061; 82550; 82553; 83036; 83735; 84443; 84484; 85025; 93005; 93306; J3475; J7030

== ENCOUNTER 2019-03-06 16:29 | Emergency (ER) | payer OTHER ==
[~2019-03-06] VITALS: Ht 162.6 cm; Wt 76.4 kg
[~2019-03-06 16:29] MED LIST changes: +DRON400T2 PO; -IBUP-1542 PO; -ONDA4TAB14 PO; +PANT40TA3 PO; +RANI300T PO
[2019-03-06 16:31] VITALS: Ht 162.6 cm; Wt 76.4 kg
[2019-03-06] MEDS ORDERED: LIDOCAINE/MYLANTA 40 ML BTL PO STA (18:35)
[2019-03-06] MEDS ORDERED: KETOROLAC 30 MG INJ IV STA (18:35)
[2019-03-06 18:36] VITALS: BP 119/66; PULSE 60; RESP 16
--- NOTE | 2019-03-06 20:11 | ERD ---
ER Documentation Chief Complaint Chief Complaint abdominal pain, nausea x 3 days HPI Patient is a 68-year-old female with a history of atrial fibrillation who presents with abdominal pain. She said the abdominal pain started on Wednesday. She had diarrhea for 2 days which was nonbloody. The pain is in the bilateral upper quadrants and epigastric area. The pain comes and goes. She has had no treatment as of yet. Her gallbladder was removed in the past. Upon review of old medical record the patient has multiple visits to the ER for similar complaints. Review of the emergency department information exchange system shows visits to 2 separate emergency departments for a total of 6 visits over the past 1 year. Her primary doctor is Dr. Conte. ROS All systems reviewed and are negative except as per history of present illness. Medications Home Meds Active Scripts Pantoprazole* (Protonix*) 40 Mg Tablet.dr, 40 MG PO DAILY, #20 TAB Prov:MERCED JASSO MD 03/06/19 Reported Medications Dronedarone Hydrochloride* (Multaq*) 400 Mg Tablet, 400 MG PO BID, TAB 03/06/19 Pantoprazole* (Pantoprazole*) 20 Mg Tablet., 20 MG PO DAILY, TAB 11/22/18 Atenolol* (Atenolol*) 50 Mg Tablet, 50 MG PO BID, #60 TAB 11/22/18 Apixaban* (Eliquis*) 5 Mg Tablet, 5 MG PO BID, TAB 11/22/18 Discontinued Reported Medications Ranitidine Hcl* (Ranitidine Hcl*) 300 Mg Tablet, 300 MG PO QHS for 90 Days, #90 TK 1 T PO QHS PRN 01/12/19 Allergies Allergies: Coded Allergies: No Known Allergy (Unverified , 03/06/19) PMhx/Soc History of Surgery: Yes (kale ) Anesthesia Reaction: No Hx Neurological Disorder: No Hx Respiratory Disorders: No Hx Cardiac Disorders: Yes (HTN, cardiac stent) Hx Psychiatric Problems: No Hx Miscellaneous Medical Probl: Yes (GERD, Diverticulosis) Hx Alcohol Use: No Hx Substance Use: No Hx Tobacco Use: No Smoking Status: Never smoker FmHx Family History: No diabetes Physical Exam Vitals Vital Signs Date Temp Pulse Resp B/P (MAP) Pulse Ox O2 O2 Flow FiO2 Time Delivery Rate 03/06/19 60 16 119/66 98 Room Air 18:36 (83) 03/06/19 98.8 66 20 143/74 98 16:31 (97) Physical Exam Const: No acute distress Head: Atraumatic Eyes: Normal Conjunctiva ENT: Normal External Ears, Nose and Mouth. Neck: Full range of motion. No meningismus. Resp: Clear to auscultation bilaterally Cardio: Regular rate and rhythm, no murmurs Abd: Soft, epigastric tenderness to palpation without rebound or guarding Skin: No petechiae or rashes Back: No midline or flank tenderness Ext: No cyanosis, or edema Neur: Awake and alert Psych: Normal Mood and Affect Result Diagram: 03/06/19183903/06/191839 Results 24 hrs Laboratory Tests Test 03/06/19 18:40 White Blood Count 7.4 10^3/ul Red Blood Count 4.13 10^6/ul Hemoglobin 12.7 g/dl Hematocrit 37.4 % Mean Corpuscular Volume 90.6 fl Mean Corpuscular Hemoglobin 30.8 pg Mean Corpuscular Hemoglobin Concent 34.0 g/dl Red Cell Distribution Width 12.3 % Platelet Count 240 10^3/UL Mean Platelet Volume 8.6 fl Immature Granulocytes % 0.300 % Neutrophils % 51.0 % Lymphocytes % 37.4 % Monocytes % 8.7 % Eosinophils % 2.3 % Basophils % 0.3 % Nucleated Red Blood Cells % 0.0 /100WBC Immature Granulocytes # 0.020 10^3/ul Neutrophils # 3.8 10^3/ul Lymphocytes # 2.8 10^3/ul Monocytes # 0.7 10^3/ul Eosinophils # 0.2 10^3/ul Basophils # 0.0 10^3/ul Nucleated Red Blood Cells # 0.0 10^3/ul Sodium Level 138 mmol/L Potassium Level 3.7 mmol/L Chloride Level 105 mmol/L Carbon Dioxide Level 26 mmol/L Anion Gap 7 Blood Urea Nitrogen 15 mg/dl Creatinine 1.01 mg/dl Est Glomerular Filtrat Rate mL/min 54 mL/min Glucose Level 105 mg/dl Calcium Level 9.1 mg/dl Total Bilirubin 0.7 mg/dl Direct Bilirubin 0.00 mg/dl Indirect Bilirubin 0.7 mg/dl Aspartate Amino Transf (AST/SGOT) 25 IU/L Alanine Aminotransferase (ALT/SGPT) 17 IU/L Alkaline Phosphatase 84 IU/L Troponin I < 0.012 ng/ml Total Protein 7.6 g/dl Albumin 3.8 g/dl Globulin 3.80 g/dl Albumin/Globulin Ratio 1.00 Lipase 114 U/L Current Medications Medications Dose Sig/Bruce Start Time Status Last (Trade) Ordered Route PRN Stop Time Admin Dose Reason Admin 40 ml ONCE STAT 03/06/19 DC 03/06/19 Miscellaneous PO 18:35 03/06/19 18:46 Medication 18:36 (Gi Cocktail (2)) Ketorolac 30 mg ONCE STAT 03/06/19 DC 03/06/19 Tromethamine IV 18:35 03/06/19 18:46 (Toradol) 18:36 Procedures/MDM EKG read by me: Rate/Rhythm: Regular rate and rhythm at a rate of 69 Intervals: Normal Impression: No evidence of ischemia or arrhythmia Patient is a 68-year-old female presents with acute on chronic abdominal pain. Laboratory studies are basically normal. EKG shows no signs of ischemia. At this point I doubt cholecystitis, pancreatitis, appendicitis, or bowel obstruction. I doubt acute coronary syndrome. The patient will be discharged but will need to follow-up closely with a primary doctor within 24 hours. She will be given a prescription for Protonix. Departure Diagnosis: Primary Impression: Abdominal pain Abdominal location: epigastric Qualified Codes: R10.13 - Epigastric pain Condition: Fair Patient Instructions: Abdominal Pain Referrals: FELIX CONTE (PCP) Additional Instructions: Llame al doctor JOSHUA y marcos juan RAZA PARA DENTRO DE 1-2 AGUIRRE.Dgale a la secretaria que nosotros le instruimos hacer esta raza.Avise o llame si armstrong condicin se empeora antes de la raza. Regresa aqui si peor o no mejor. MERCED JASSO MD Mar 06, 2019 20:11
== END 2019-03-06 20:31 | disposition home or self-care (01) ==
LOC: E/R 16:29
DX: R10.13 Epigastric pain (principal); I10 Essential (primary) hypertension; Z98.61 Coronary angioplasty status; Z79.01 Long term (current) use of anticoagulants
CPT/HCPCS: 36415; 80053; 83690; 84484; 85025; 93005; 96374; 99284; J1885